=== PATIENT | male | born 1975 | race Hispanic/Latino ===

== ENCOUNTER 2019-06-29 19:49 | Emergency (ER) | payer OTHER, SELFPAY ==
[2019-06-29] MEDS ORDERED: ONDANSETRON 4 MG/2 ML VIAL ONE (20:11)
[2019-06-29] MEDS ORDERED: PANTOPRAZOLE 40 MG INJ ONE (20:11)
[2019-06-29] MEDS ORDERED: NA CHLORIDE 0.9% 1,000 ML ONE (20:13)
[2019-06-29 20:20] LABS: Basophils % 0.9 % (0-1.3); Hematocrit 26.1 % (39.6-49.0); Lymphocytes % 18.9 % (15.3-44.8); MPV 9.2 fL (7.6-11.3); RBC Red Blood Cell Count 3.23 M/uL (4.33-5.43)
[2019-06-29 20:39] LABS: ALT/SGPT 32 U/L (12-78); AST/SGOT 26 U/L (15-37); Albumin 2.9 g/dL (3.4-5.0); Alkaline Phosphatase 82 U/L (45-117); BUN Blood Urea Nitrogen 25 mg/dL (7-18); Bicarbonate 22 mmol/L (21-32); Bilirubin Direct 0.2 mg/dL (0-0.2); Bilirubin Total 0.7 mg/dL (0.2-1.0); Glucose Level 204 mg/dL (74-106); Lipase 131 U/L (73-393); Potassium 4.1 mmol/L (3.5-5.1); Protein, Total 5.8 g/dL (6.4-8.2); Sodium Level 139 mmol/L (136-145)
[2019-06-29 21:09] LABS: Blood Morphology Comment NOT SEEN (NOT SEEN); Platelet Estimate DECR; Urine White Blood Cell Casts OK
[2019-06-29] MEDS ORDERED: NA CHLORIDE 0.9% 500 ML ONE (21:29)
[2019-06-29] MEDS ORDERED: OCTREOTIDE ACETATE 100 MCG/ML ONE (21:32)
--- NOTE | 2019-06-29 21:54 | EDPHYS ---
Physician Documentation [facility] Name: Isma Marion Age: 43 yrs Sex: Male : 1975 Arrival Date: 06/29/2019 Time: 19:58 Bed 3 Private MD: ED Physician Stanley Pino HPI: 06/29 23:09 This 43 yrs old Male presents to ER via EMS with complaints of Vomiting. tw4 23:09 The patient presents to the emergency department with nausea, vomiting, described as tw4 bright red blood. Onset: The symptoms/episode began/occurred today. Possible causes: antibiotics. The symptoms are aggravated by nothing. The symptoms are alleviated by nothing. Associated signs and symptoms: Pertinent positives: syncope. Severity of symptoms: At their worst the symptoms were moderate in the emergency department the symptoms are unchanged. The patient has not experienced similar symptoms in the past. Historical: - Allergies: 20:05 No Known Allergies; ea - Home Meds: 20:05 Metformin Oral [Active]; ea - PMHx: 20:05 Diabetes - NIDDM; ea - PSHx: 20:05 None; ea - Immunization history:: Adult Immunizations up to date. - Social history:: Smoking status: Patient/guardian denies using tobacco. - Ebola Screening: : No symptoms or risks identified at this time. ROS: 23:09 Constitutional: Negative for fever, chills, and weight loss, Eyes: Negative for injury, tw4 pain, redness, and discharge, Cardiovascular: Negative for chest pain, palpitations, and edema, Respiratory: Negative for shortness of breath, cough, wheezing, and pleuritic chest pain, Back: Negative for injury and pain, MS/Extremity: Negative for injury and deformity. 23:09 Abdomen/GI: Positive for nausea and vomiting, nausea, vomiting, and diarrhea, nausea, vomiting, hematemesis, black/tarry stool, Negative for abdominal pain, constipation, abdominal cramps, abdominal distension. 23:09 Neuro: Positive for syncope, Negative for altered mental status, dizziness, gait disturbance, headache, hearing loss, loss of consciousness, numbness, seizure activity, speech changes. Exam: 23:09 Constitutional: This is a well developed, well nourished patient who is awake, alert, tw4 and in no acute distress. Head/Face: Normocephalic, atraumatic. Chest/axilla: Normal chest wall appearance and motion. Nontender with no deformity. No lesions are appreciated. Cardiovascular: Regular rate and rhythm with a normal S1 and S2. No gallops, murmurs, or rubs. Normal PMI, no JVD. No pulse deficits. Respiratory: Lungs have equal breath sounds bilaterally, clear to auscultation and percussion. No rales, rhonchi or wheezes noted. No increased work of breathing, no retractions or nasal flaring. Abdomen/GI: Soft, non-tender, with normal bowel sounds. No distension or tympany. No guarding or rebound. No evidence of tenderness throughout. Back: No spinal tenderness. No costovertebral tenderness. Full range of motion. MS/ Extremity: Pulses equal, no cyanosis. Neurovascular intact. Full, normal range of motion. Neuro: Awake and alert, GCS 15, oriented to person, place, time, and situation. Cranial nerves II-XII grossly intact. Motor strength 5/5 in all extremities. Sensory grossly intact. Cerebellar exam normal. Normal gait. Vital Signs: 20:05 BP 127 / 77; Pulse 101; Resp 18; Temp 98.8; Pulse Ox 100% on R/A; Weight 92.99 kg; ea Height 5 ft. 6 in. (167.64 cm); Pain 0/10; 21:20 BP 112 / 71; Pulse 96; Resp 18; Temp 98.2; Pulse Ox 98% on R/A; ea 22:38 BP 101 / 71; Pulse 95; Resp 18; Pulse Ox 93% on R/A; ea 22:41 Temp 98.7; ea 23:00 BP 98 / 66; Pulse 92; Resp 18; Temp 98.2(TE); Pulse Ox 95% ; ea 20:05 Body Mass Index 33.09 (92.99 kg, 167.64 cm) ea MDM: 20:00 Patient medically screened. tw4 23:09 Differential diagnosis: Nonspecific abd pain, gastritis, cholecystitis, pancreatitis, tw4 appendicitis, diverticulitis, viral gastroenteritis. Data reviewed: vital signs, nurses notes, lab test result(s), CBC, white blood cell count, hemoglobin, hematocrit, platelets, electrolytes, sodium, potassium, chloride, serum bicarbonate, BUN, creatinine, serum glucose, hepatic panel. Data interpreted: Pulse oximetry: Interpretation: normal. Counseling: I had a detailed discussion with the patient and/or guardian regarding: the historical points, exam findings, and any diagnostic results supporting the discharge/admit diagnosis, lab results. Medication response: Zofran relieved the patient's nausea. Response to treatment: and as a result, I will admit patient. ED course: Will transfer for [facility] no GI director information. . 06/29 20:02 Order name: Basic Metabolic Panel; Complete Time: 21:16 [facility] 06/29 21:17 Interpretation: Normal except: GLUC 204; BUN 25. [facility] 06/29 20:02 Order name: CBC with Diff; Complete Time: 21:16 [facility] 06/29 21:17 Interpretation: Normal except: RBC 3.23; HGB 8.3; HCT 26.1; MCV 81.0; MCH 25.8; RDW tw4 19.2; MCHC 31.9; PLT 63. 06/29 20:02 Order name: Creatinine for Radiology; Complete Time: 21:16 [facility] 06/29 21:17 Interpretation: Within normal limits: CRE 0.70. [facility] 06/29 20:02 Order name: Hepatic Function; Complete Time: 21:16 [facility] 06/29 21:17 Interpretation: Normal except: TP 5.8; ALB 2.9; A/G 1.0. [facility] 06/29 20:02 Order name: Lipase; Complete Time: 21:16 [facility] 06/29 21:17 Interpretation: Within normal limits: LIP 131. [facility] 06/29 20:47 Order name: Alcohol Level; Complete Time: 21:38 [facility] 06/29 20:02 Order name: IV Saline Lock; Complete Time: 20:22 [facility] 06/29 20:02 Order name: Labs collected and sent; Complete Time: 20:22 [facility] 06/29 21:11 Order name: CBC Smear Scan EDMS Administered Medications: 20:18 Drug: Zofran 4 mg Route: IVP; Site: left antecubital; ea 21:52 Follow up: Response: No adverse reaction ea 20:21 Drug: NS 0.9% 1000 ml Route: IV; Rate: 1 bolus; Site: left antecubital; ea 21:53 Follow up: Response: No adverse reaction; IV Status: Completed infusion; IV Intake: ea 1000ml 20:21 Drug: ProTONIX 40 mg Route: IVP; Site: left antecubital; ea 21:53 Follow up: Response: No adverse reaction ea 21:39 Drug: Octreotide Infusion (50 mcg/hr) - (Octreotide 500 mcg, NS 0.9% 500 ml) Route: IV; ea Rate: 50 ml/hr; Site: left antecubital; 23:13 Follow up: IV Status: Infusion continued upon transfer ea 22:01 Drug: Rocephin - (cefTRIAXone) 1 grams Route: IVPB; Infused Over: 30 mins; Site: left ea antecubital; 22:39 Follow up: Response: No adverse reaction; IV Status: Completed infusion ea Disposition: 06/29/19 21:[address] [facility]. Diagnosis are Encounter for screening for lower gastrointestinal disorder, Gastrointestinal hemorrhage, unspecified, Syncope and collapse. - Reason for transfer: Higher level of care. - Accepting physician is Dr Black. - Condition is Stable. - Problem is new. - Symptoms have improved. Signatures: Dispatcher [employer] Eva Hernandez RN RN Stanley Thomas MD MD tw4 Corrections: (The following items were deleted from the chart) 23:25 21:53 06/29/2019 21:[address] [facility]. Diagnosis is ea Encounter for screening for lower gastrointestinal disorder; Gastrointestinal hemorrhage, unspecified; Syncope and collapse. Reason for transfer: Higher level of care. Accepting physician is Dr Black. Condition is Stable. Problem is new. Symptoms have improved. tw4
--- NOTE | 2019-06-29 21:54 | ER ---
Nurse's Notes [facility] Name: Isma Marion Age: 43 yrs Sex: Male : 1975 Arrival Date: 06/29/2019 Time: 19:58 Bed 3 Private MD: Diagnosis: Encounter for screening for lower gastrointestinal disorder;Gastrointestinal hemorrhage, unspecified;Syncope and collapse Presentation: 06/29 20:00 Presenting complaint: EMS states: Reports he felt nauseous and went to restroom to ea throw up, pt reports he does not remember anything after that. EMS reports upon arrival pt was awake and O x 4, there was bright red emesis noted in the bathroom, and pt reported black tarry stools earlier today. Ortho BP done by EMS, reported pt had syncopal episode when he stood up, 18 G to LAC, 300cc NS given per EMS. Transition of care: patient was not received from another setting of care. Onset of symptoms was June 29, 2019. Risk Assessment: Do you want to hurt yourself or someone else? Patient reports no desire to harm self or others. Initial Sepsis Screen: Does the patient meet any 2 criteria? HR > 90 bpm. Does the patient have a suspected source of infection? No. Patient's initial sepsis screen is negative. Care prior to arrival: IV initiated. 20 GA, in the left antecubital area, 300 cc of NS. 20:00 Method Of Arrival: EMS: [facility] ea 20:00 Acuity: MEGHANN 3 ea Triage Assessment: 20:06 General: Appears in no apparent distress. Behavior is calm, cooperative, appropriate ea for age. Pain: Denies pain. Neuro: Level of Consciousness is awake, alert, obeys commands, Oriented to person, place, time, situation. Cardiovascular: Patient's skin is warm and dry. Respiratory: Airway is patent Respiratory effort is even, unlabored, Respiratory pattern is regular, symmetrical. GI: Reports bright red vomit and tarry stools. Derm: Skin is pink, warm \T\ dry. Historical: - Allergies: 20:05 No Known Allergies; ea - Home Meds: 20:05 Metformin Oral [Active]; ea - PMHx: 20:05 Diabetes - NIDDM; ea - PSHx: 20:05 None; ea - Immunization history:: Adult Immunizations up to date. - Social history:: Smoking status: Patient/guardian denies using tobacco. - Ebola Screening: : No symptoms or risks identified at this time. Screenin:05 Abuse screen: Denies threats or abuse. Nutritional screening: No deficits noted. ea Tuberculosis screening: No symptoms or risk factors identified. Fall Risk IV access (20 points). Assessment: 20:07 Reassessment: see triage assessment. ea 21:28 Reassessment: Patient and/or family updated on plan of care and expected duration. Pain ea level reassessed. Patient is alert, oriented x 3, equal unlabored respirations, skin warm/dry/pink. Provider at bedside updating pt on need for transfer. 22:18 Reassessment: Patient and/or family updated on plan of care and expected duration. Pain ea level reassessed. Patient is alert, oriented x 3, equal unlabored respirations, skin warm/dry/pink. Attempted to call report, call center reported there would be a room change and would call back with nurse for report. 22:30 Reassessment: Report called to Nura ESCOBEDO at [facility]. Pt updated on plan ea of care, awaiting on EMS for transfer. 23:19 Reassessment: Patient and/or family updated on plan of care and expected duration. Pain ea level reassessed. Patient is alert, oriented x 3, equal unlabored respirations, skin warm/dry/pink. Pt transferred to [facility] pt taken via stretcher per EMS, tolerating well. IV sites intact, patent with IV medication infusing. Pt tolerating well. Vital Signs: 20:05 BP 127 / 77; Pulse 101; Resp 18; Temp 98.8; Pulse Ox 100% on R/A; Weight 92.99 kg; ea Height 5 ft. 6 in. (167.64 cm); Pain 0/10; 21:20 BP 112 / 71; Pulse 96; Resp 18; Temp 98.2; Pulse Ox 98% on R/A; ea 22:38 BP 101 / 71; Pulse 95; Resp 18; Pulse Ox 93% on R/A; ea 22:41 Temp 98.7; ea 23:00 BP 98 / 66; Pulse 92; Resp 18; Temp 98.2(TE); Pulse Ox 95% ; ea 20:05 Body Mass Index 33.09 (92.99 kg, 167.64 cm) ea ED Course: 19:58 Patient arrived in ED. ea 20:00 Stanley Pino MD is Attending Physician. tw4 20:04 Triage completed. ea 20:04 Arm band placed on right wrist. Patient placed in an exam room, on a stretcher, on ea pulse oximetry. 20:05 Patient has correct armband on for positive identification. Bed in low position. Call ea light in reach. Side rails up X2. 20:08 Eva Avendano RN is Primary Nurse. ea 21:45 No provider procedures requiring assistance completed. Patient transferred, IV remains ea in place. Administered Medications: 20:18 Drug: Zofran 4 mg Route: IVP; Site: left antecubital; ea 21:52 Follow up: Response: No adverse reaction ea 20:21 Drug: NS 0.9% 1000 ml Route: IV; Rate: 1 bolus; Site: left antecubital; ea 21:53 Follow up: Response: No adverse reaction; IV Status: Completed infusion; IV Intake: ea 1000ml 20:21 Drug: ProTONIX 40 mg Route: IVP; Site: left antecubital; ea 21:53 Follow up: Response: No adverse reaction ea 21:39 Drug: Octreotide Infusion (50 mcg/hr) - (Octreotide 500 mcg, NS 0.9% 500 ml) Route: IV; ea Rate: 50 ml/hr; Site: left antecubital; 23:13 Follow up: IV Status: Infusion continued upon transfer ea 22:01 Drug: Rocephin - (cefTRIAXone) 1 grams Route: IVPB; Infused Over: 30 mins; Site: left ea antecubital; 22:39 Follow up: Response: No adverse reaction; IV Status: Completed infusion ea Intake: 21:53 IV: 1000ml; Total: 1000ml. ea Outcome: 21:45 Instructed on the need for transfer, Demonstrated understanding of instructions. ea 21:53 ER care complete, transfer ordered by . tw4 23:13 Transferred by ground EMS to [facility], Transfer form completed. ea 23:13 Condition: stable 23:25 Patient left the ED. ea Signatures: Eva Avendano RN RN ea Wadley, Terrence, MD MD [facility]
[2019-06-29] MEDS ORDERED: CEFTRIAXONE/SWI 1gm 1 GM/10 ML SYR ONE (21:55)
[2019-06-29 23:47] VITALS: BP 98/66; TEMP 98.2; O2SAT 95
--- NOTE | 2019-06-30 08:47 | EKG ---
Test Date: 2019-06-29 Test Time: 19:57:46 Grip Boss: CHIQUITA MEASUREMENT RESULTS: Intervals: Rate: 92 NM: 130 QRSD: 82 QT: 360 QTc: 445 [place]: P: 64 NM: 130 QRS: 19 T: 24 INTERPRETIVE STATEMENTS: Normal sinus rhythm Normal ECG Compared to ECG 11/01/2014 15:26:04 No significant changes Electronically Signed On 06-30-19 08:45:26 [employer] by Hector Gray
== END 2019-06-29 23:25 | disposition short-term general hospital (02) ==
LOC: ER 19:49
DX: K92.2 Gastrointestinal hemorrhage, unspecified (principal); R55 Syncope and collapse; Z13.811 Encounter for screening for lower gastrointestinal disorder; E11.9 Type 2 diabetes mellitus without complications
CPT/HCPCS: 36415; 80048; 80076; 80320; 83690; 85025; 93005; 96361; 96365; 96368; 96375; 99285; C9113; J0696; J2354; J2405; J7030; J7040

== ENCOUNTER 2020-09-26 16:26 | Inpatient (IN) | payer SELFPAY ==
[2020-09-26] MEDS ORDERED: NA CHLORIDE 0.9% 1,000 ML ONE (21:33)
[2020-09-26] MEDS ORDERED: PANTOPRAZOLE 40 MG INJ ONE (21:33)
[2020-09-26] MEDS ORDERED: ONDANSETRON 4 MG/2 ML VIAL ONE (21:33)
[2020-09-26] MEDS ORDERED: NA CHLORIDE 0.9% 500 ML ONE (21:33)
[2020-09-26] MEDS ORDERED: OCTREOTIDE ACETATE 100 MCG/ML ONE (21:35)
[2020-09-26] MEDS ORDERED: CEFTRIAXONE/SWI 1gm 1 GM/10 ML SYR ONE (21:35)
[2020-09-26] MEDS ORDERED: NA CHLORIDE 0.9% 250 ML ONE (21:39)
[2020-09-26 21:43] LABS: Protime INR 1.25
[2020-09-26 21:48] LABS: Absolute Lymphocytes (CBC) 1.2 K/uL (0.7-4.9); Basophils % 0.3 % (0-1.3); Hematocrit 37.9 % (39.6-49.0); Lymphocytes % 13.5 % (15.3-44.8); MPV 9.7 fL (7.6-11.3); RBC Red Blood Cell Count 4.26 M/uL (4.33-5.43)
[2020-09-26 21:56] LABS: ALT/SGPT 36 U/L (12-78); AST/SGOT 23 U/L (15-37); Albumin 3.4 g/dL (3.4-5.0); Alkaline Phosphatase 99 U/L (45-117); BUN Blood Urea Nitrogen 32 mg/dL (7-18); Bicarbonate 24 mmol/L (21-32); Bilirubin Direct 0.3 mg/dL (0-0.2); Bilirubin Total 1.2 mg/dL (0.2-1.0); Glucose Level 258 mg/dL (74-106); Lipase 70 U/L (73-393); Potassium 4.2 mmol/L (3.5-5.1); Protein, Total 7.3 g/dL (6.4-8.2); Sodium Level 138 mmol/L (136-145)
[2020-09-26] MEDS ORDERED: OCTREOTIDE ACETATE 500 MCG/ML ONE (22:07)
[2020-09-26] MEDS ORDERED: ONDANSETRON 4 MG/2 ML VIAL IV PRN (22:56)
[2020-09-26] MEDS: NA CHLORIDE 0.9% 1,000 ML IV SCH (23:00)
[2020-09-26] MEDS ORDERED: OCTREOTIDE 500 MCG in NA CHLORIDE 0.9% 500 ML IV SCH (23:00)
[2020-09-26] MEDS ORDERED: PANTOPRAZOLE INJ 80 MG in NA CHLORIDE 0.9% 250 ML IV SCH (23:00)
[2020-09-26] MEDS ORDERED: SODIUM CHLORIDE 0.9% 10ML INJ IV PRN (23:02)
--- NOTE | 2020-09-26 23:02 | P.HP ---
Certification for Inpatient Patient will require the following post-hospital care: None Practitioner: I am a practitioner with admitting privileges, knowledge of patient current condition, hospital course, and medical plan of care. Services: Services provided to patient in accordance with Admission requirements found in Title 42 Section 412.3 of the Code of Federal Regulations Patient History Date of Service: 09/27/20 Reason for admission: GI bleed. History of Present Illness: 44 y o male pt with hx of Diabetes type 2 and hx of liver cirrhosis and prior GI bleed admitted for work up if GI bleed. he had c/o vomiting blood and passing black stool x1. he denied any episode of diarrhea, fever, chills, rigor and no overt abd pain. his labs were pertinent for normal hb level and renal function. he was deem,ed to have possible GI bleed based on his hx and concerns for PUD/esophageal varices was entertained. he was started on PPI and IV fluid and he was admitted for inpt after discussing with web press operator helper offset. Allergies No Known Drug Allergies Allergy (Unknown, Verified 07/29/14 14:19) Unknown Home Medications: Alogliptin Abdias/Metformin HCl [Kazano 12.5-1,000 mg Tablet] 1 each PO BID 02/07/15 Amoxicillin/Potassium Clav [Augmentin 875-125 Tablet] 1 each PO BID #20 tablet 02/12/15 Codeine/APAP [Tylenol W/Codeine #3 tab] 1 tab PO Q8H PRN #20 tab 02/12/15 - Past Medical/Surgical History Diabetic: Yes -: DM -: Cellulitis - Social History Alcohol use: Yes CD- Drugs: No Caffeine use: Yes Review of Systems General: Weakness Gastrointestinal: Nausea, Vomiting, Abdominal Pain (mild.), Melena, Hematochezia Physical Examination - Physical Exam General: Alert, Oriented x3 HEENT: Atraumatic, Normocephalic Respiratory: Clear to auscultation bilaterally Cardiovascular: No edema, Regular rate/rhythm, Normal S1 S2 Gastrointestinal: Tenderness (mildly in epigastrium.) Neurological: Normal speech, Normal strength at 5/5 x4 extr, Cranial nerves 3-12 intact - Studies Laboratory Data (last 24 hrs) 09/26/20 21:10: PT 14.4 H, INR 1.25 09/26/20 21:10: WBC 9.10, Hgb 12.9 L, Hct 37.9 L, Plt Count 104 L 09/26/20 21:10: Sodium 138, Potassium 4.2, BUN 32 H, Creatinine 0.62, Glucose 258 H, Total Bilirubin 1.2 H, AST 23, ALT 36, Alkaline Phosphatase 99, Lipase 70 L Assessment and Plan - Plan 1.GI bleed-suspected based on hx. he does have a hx of esophageal varices. we have started PPI therapy. we will monitor h&h and vitals. we will have GI evaluation in am for possible endoscopy. 2.Diabetes type 2-was on metformin and alogliptin as outpt. we will continue routine monitoring of blood glucose per protocol.SSI will be started as needed. Discharge Plan: Home - Advance Directives Does patient have a Living Will: No Does patient have a Durable POA for Healthcare: No
--- NOTE | 2020-09-26 23:14 | ER ---
Nurse's Notes [facility] Name: Isma Marion Age: 44 yrs Sex: Male : 1975 Arrival Date: 09/26/2020 Time: 16:29 Bed 8 Private MD: Diagnosis: Gastrointestinal hemorrhage, unspecified Presentation: 09/26 16:36 Chief complaint: Patient states: black stools, started vomiting blood today, and sv generalized weakness. Pt took some Pepto this morning. Coronavirus screen: Client denies travel out of the [place] in the last 14 days. At this time, the client does not indicate any symptoms associated with coronavirus-19. Ebola Screen: No symptoms or risks identified at this time. Risk Assessment: Do you want to hurt yourself or someone else? Patient reports no desire to harm self or others. Onset of symptoms was September 26, 2020. 16:36 Method Of Arrival: Ambulatory sv 16:36 Acuity: MEGHANN 2 sv 16:38 Initial Sepsis Screen: Does the patient meet any 2 criteria? HR > 90 bpm. No. Patient's sv initial sepsis screen is negative. Does the patient have a suspected source of infection? No. Patient's initial sepsis screen is negative. Triage Assessment: 16:39 General: Appears in no apparent distress. uncomfortable, Behavior is calm, cooperative, sv appropriate for age. Pain: Complains of pain in epigastric area. Neuro: Level of Consciousness is awake, alert, obeys commands, Oriented to person, place, time, situation, Moves all extremities. Full function Gait is steady. Respiratory: Respiratory effort is even, unlabored. Historical: - Allergies: 16:37 No Known Drug Allergies; sv - PMHx: 16:37 Diabetes - NIDDM; sv - PSHx: 16:37 None; sv - Immunization history:: Adult Immunizations up to date. - Social history:: Smoking status: Patient denies any tobacco usage or history of. Patient uses alcohol, occasionally. Patient/guardian denies using alcohol, street drugs, The patient lives with family. - Family history:: not pertinent. Screenin:18 Abuse screen: Denies threats or abuse. Denies injuries from another. Nutritional rv screening: No deficits noted. Tuberculosis screening: No symptoms or risk factors identified. Fall Risk None identified. Vital Signs: 16:38 BP 108 / 85; Pulse 112; Resp 20; Temp 98.4; Pulse Ox 100% ; Weight 90.72 kg; Height 5 sv ft. 6 in. (167.64 cm); Pain 5/10; 22:00 BP 118 / 72; Pulse 112; Resp 18; Pulse Ox 100% on R/A; rv 23:46 BP 93 / 56; Pulse 111; Resp 18; Temp 98; Pulse Ox 99% ; rv 16:38 Body Mass Index 32.28 (90.72 kg, 167.64 cm) sv ED Course: 16:29 Patient arrived in ED. mr 16:36 Arm band placed on. sv 16:37 Triage completed. sv 20:55 Patient taken to an exam room, ambulatory, steady gait. sg 20:55 Bryson Bailon, GREGG is Primary Nurse. rv 20:56 Garrett Durbin MD is Attending Physician. ma2 21:10 Inserted saline lock: 18 gauge in left forearm, using aseptic technique. Blood rv collected. 21:15 Inserted saline lock: 20 gauge in left hand, using aseptic technique. rv 21:15 Initial lab(s) drawn, by me, sent to lab. rv 21:18 Patient has correct armband on for positive identification. monitor worker on. Pulse rv ox on. NIBP on. 21:28 XRAY Abdomen 1 View (KUB) In Process Unspecified. EDMS 22:53 Dakota Scherer DO is Hospitalizing Provider. ma2 23:41 No provider procedures requiring assistance completed. IV is patent, with fluids rv infusing freely, Patient admitted, IV remains in place. Administered Medications: 21:24 Drug: NS 0.9% 1000 ml Route: IV; Rate: 1000 ml; Site: left forearm; wh 23:44 Follow up: IV Status: Completed infusion; IV Intake: 1000ml rv 21:26 Drug: Zofran (Ondansetron) 4 mg Route: IVP; Site: left forearm; wh 23:44 Follow up: Response: No adverse reaction rv 21:28 Drug: Rocephin 1 grams Route: IV; Rate: calculated rate; Site: left forearm; wh 23:43 Follow up: Response: No adverse reaction; IV Status: Completed infusion rv 21:30 Drug: Pantoprazole 80 mg Route: IVP; Site: left forearm; wh 23:43 Follow up: Response: No adverse reaction rv 21:32 Drug: Pantoprazole 8 mg/hr Route: IV; Rate: 25 ml/hr; Site: left forearm; 23:43 Follow up: IV Status: Infusion continued upon admission rv 22:06 Drug: Octreotide Infusion (50 mcg/hr) - (Octreotide 500 mcg, NS 0.9% 500 ml) Route: IV; rv Rate: 50 ml/hr; Site: left hand; 23:43 Follow up: IV Status: Infusion continued upon admission rv Point of Care Testing: Blood Glucose: 16:43 Blood Glucose: 213 mg/dL; sv Ranges: Intake: 23:44 IV: 1000ml; Total: 1000ml. rv Outcome: 22:53 Decision to Hospitalize by Provider. maMane 23:41 Admitted to Tele accompanied by tech, via wheelchair, room 405, with chart, Report rv called to [facility] 23:41 Condition: good 23:41 Instructed on the need for admit. 02 00:06 Patient left the ED. rv Signatures: Dispatcher [employer] Lottie Lutz, RN GREGG Quentin Kan RN GREGG Sally Whitman mr Kalie, GREGG Eason RN Garrett Durbin MD MD ma2 Vicente, Ronaldo RN RN rv Corrections: (The following items were deleted from the chart) 02 16:39 16:36 Chief complaint: Patient states: black stools, started vomiting blood today, and sv generalized weakness sv 16:40 16:36 Acuity: MEGHANN 3 sv sv
--- NOTE | 2020-09-26 23:14 | EDPHYS ---
Physician Documentation [facility] Name: Isma Marion Age: 44 yrs Sex: Male : 1975 Arrival Date: 09/26/2020 Time: 16:29 Bed 8 Private MD: ED Physician Garrett Durbin HPI: 09/26 21:36 This 44 yrs old Male presents to ER via Ambulatory with complaints of vomiting ma2 up Blood, melena. 21:36 Onset: The symptoms/episode began/occurred gradually, 2 day(s) ago. Associated signs ma2 and symptoms: Pertinent negatives: anorexia, fever, headache, hematuria, shortness of breath. Severity of pain: At its worst the pain was mild in the emergency department the pain is unchanged. The patient has experienced similar episodes in the past. Historical: - Allergies: 16:37 No Known Drug Allergies; sv - PMHx: 16:37 Diabetes - NIDDM; sv - PSHx: 16:37 None; sv - Immunization history:: Adult Immunizations up to date. - Social history:: Smoking status: Patient denies any tobacco usage or history of. Patient uses alcohol, occasionally. Patient/guardian denies using alcohol, street drugs, The patient lives with family. - Family history:: not pertinent. ROS: 21:36 Constitutional: Negative for fever, chills, and weight loss. ma2 21:36 All other systems are negative. Exam: 21:36 Constitutional: This is a well developed, well nourished patient who is awake, alert, ma2 and in no acute distress. Head/Face: Normocephalic, atraumatic. Eyes: Pupils equal round and reactive to light, extra-ocular motions intact. Lids and lashes normal. Conjunctiva and sclera are non-icteric and not injected. Cornea within normal limits. Periorbital areas with no swelling, redness, or edema. ENT: Nares patent. No nasal discharge, no septal abnormalities noted. Tympanic membranes are normal and external auditory canals are clear. Oropharynx with no redness, swelling, or masses, exudates, or evidence of obstruction, uvula midline. Mucous membranes moist. Neck: Trachea midline, no thyromegaly or masses palpated, and no cervical lymphadenopathy. Supple, full range of motion without nuchal rigidity, or vertebral point tenderness. No Meningismus. Chest/axilla: Normal chest wall appearance and motion. Nontender with no deformity. No lesions are appreciated. Cardiovascular: Regular rate and rhythm with a normal S1 and S2. No gallops, murmurs, or rubs. Normal PMI, no JVD. No pulse deficits. Respiratory: Lungs have equal breath sounds bilaterally, clear to auscultation and percussion. No rales, rhonchi or wheezes noted. No increased work of breathing, no retractions or nasal flaring. Abdomen/GI: Soft, non-tender, with normal bowel sounds. No distension or tympany. No guarding or rebound. No evidence of tenderness throughout. MS/ Extremity: Pulses equal, no cyanosis. Neurovascular intact. Full, normal range of motion. Neuro: Awake and alert, GCS 15, oriented to person, place, time, and situation. Cranial nerves II-XII grossly intact. Motor strength 5/5 in all extremities. Sensory grossly intact. Cerebellar exam normal. Normal gait. Vital Signs: 16:38 BP 108 / 85; Pulse 112; Resp 20; Temp 98.4; Pulse Ox 100% ; Weight 90.72 kg; Height 5 sv ft. 6 in. (167.64 cm); Pain 5/10; 22:00 BP 118 / 72; Pulse 112; Resp 18; Pulse Ox 100% on R/A; rv 23:46 BP 93 / 56; Pulse 111; Resp 18; Temp 98; Pulse Ox 99% ; rv 16:38 Body Mass Index 32.28 (90.72 kg, 167.64 cm) sv MDM: 20:56 Patient medically screened. ma2 21:36 Differential diagnosis: diverticulitis, gastritis, gastroesophageal reflux disease, GI ma2 Bleed, Hepatitis. 22:51 Data reviewed: vital signs, nurses notes. Counseling: I had a detailed discussion with ma2 the patient and/or guardian regarding: the historical points, exam findings, and any diagnostic results supporting the discharge/admit diagnosis, the presence of at least one elevated blood pressure reading (>120/80) during this emergency department visit, the need for further work-up and treatment in the hospital. Response to treatment: the patient's symptoms have markedly improved after treatment. ED course: discussed with gi dr. garcia teamLeilani, and she states dr. albert will come see him outsewer.. 09/26 16:55 Order name: Glucose, Ancillary Testing; Complete Time: 21:46 EDMS 09/26 20:59 Order name: BMP [facility] 09/26 20:59 Order name: CBC with Diff; Complete Time: 22:16 [facility] 09/26 20:59 Order name: Hepatic Function; Complete Time: 22:16 [facility] 09/26 20:59 Order name: Lipase; Complete Time: 22:16 [facility] 09/26 20:59 Order name: PT-INR; Complete Time: 22:16 [facility] 09/26 20:59 Order name: XRAY Abdomen 1 View (KUB) [facility] 09/26 20:59 Order name: Type And Screen [facility] 09/26 21:00 Order name: Basic Metabolic Panel; Complete Time: 22:16 EDMS 09/26 21:36 Order name: COVID-19 : Document "Date of Symptom Onset" if Symptomatic. [facility] 09/26 22:39 Order name: Urine Dipstick--Ancillary (enter results) [facility] 09/26 23:31 Order name: SARS-COV-2 RT PCR [facility] 09/27 00:01 Order name: Urine Dipstick-Ancillary [facility] 09/26 20:59 Order name: IV Saline Lock; Complete Time: 21:19 [facility] 09/26 20:59 Order name: Labs collected and sent; Complete Time: 21:19 [facility] 09/26 20:59 Order name: NPO; Complete Time: 21:19 [facility] 09/26 20:59 Order name: Urine Dipstick-Ancillary (obtain specimen); Complete Time: 22:34 [facility] 09/26 22:59 Order name: NPO EDDC Administered Medications: 21:24 Drug: NS 0.9% 1000 ml Route: IV; Rate: 1000 ml; Site: left forearm; wh 23:44 Follow up: IV Status: Completed infusion; IV Intake: 1000ml rv 21:26 Drug: Zofran (Ondansetron) 4 mg Route: IVP; Site: left forearm; wh 23:44 Follow up: Response: No adverse reaction rv 21:28 Drug: Rocephin 1 grams Route: IV; Rate: calculated rate; Site: left forearm; wh 23:43 Follow up: Response: No adverse reaction; IV Status: Completed infusion rv 21:30 Drug: Pantoprazole 80 mg Route: IVP; Site: left forearm; 23:43 Follow up: Response: No adverse reaction rv 21:32 Drug: Pantoprazole 8 mg/hr Route: IV; Rate: 25 ml/hr; Site: left forearm; 23:43 Follow up: IV Status: Infusion continued upon admission rv 22:06 Drug: Octreotide Infusion (50 mcg/hr) - (Octreotide 500 mcg, NS 0.9% 500 ml) Route: IV; rv Rate: 50 ml/hr; Site: left hand; 23:43 Follow up: IV Status: Infusion continued upon admission rv Point of Care Testing: Blood Glucose: 16:43 Blood Glucose: 213 mg/dL; sv Ranges: Critical Glucose Levels:Adult <50 mg/dl or >400 mg/dl <40 mg/dl or >180 mg/dl Disposition: 09/26/20 22:53 Hospitalization ordered by Dakota Scherer for Inpatient Admission. Preliminary diagnosis is Gastrointestinal hemorrhage, unspecified. - Bed requested for Telemetry/MedSurg (Inpatient). - Status is Inpatient Admission. rv - Condition is Stable. - Problem is new. - Symptoms are unchanged. Signatures: Dispatcher [employer] EDDC Lottie Villafuerte RN RN Betty Murillo RN RN Jenaro Jade RN RN Garrett Durbin MD MD [facility] Bryson Bailon RN RN rv Corrections: (The following items were deleted from the chart) 22:10 21:37 CORONAVIRUS ordered. EDDC EDDC 23:38 22:53 Hospitalization Ordered by Dakota Scherer DO for Inpatient Admission. Preliminary cg diagnosis is Gastrointestinal hemorrhage, unspecified. Bed requested for Telemetry/MedSurg (Inpatient). Status is Inpatient Admission. Condition is Stable. Problem is new. Symptoms are unchanged. [facility] 09/27 00:06 08 23:38 09/26/2020 22:53 Hospitalization Ordered by Dakota Scherer DO for Inpatient rv Admission. Preliminary diagnosis is Gastrointestinal hemorrhage, unspecified. Bed requested for Telemetry/MedSurg (Inpatient). Status is Inpatient Admission. Condition is Stable. Problem is new. Symptoms are unchanged.
[2020-09-27] LABS: Urine Blood NEGATIVE (NEG); Urine Glucose 2+ (NEG); Urine Protein NEGATIVE (NEG); Urine Specific Gravity 1.025 (1.005-1.030); Urine pH 6.5 (5.0-7.0)
[2020-09-27] MEDS ORDERED: OCTREOTIDE ACETATE 100 MCG/ML IV SCH (01:00)
[2020-09-27 01:09] VITALS: BMI 30.2
[2020-09-27 04:00] LABS: Absolute Lymphocytes (CBC) 1.1 K/uL (0.7-4.9); Basophils % 0.3 % (0-1.3); Hematocrit 30.2 % (39.6-49.0); MPV 9.3 fL (7.6-11.3); RBC Red Blood Cell Count 3.39 M/uL (4.33-5.43)
[2020-09-27 04:36] LABS: ALT/SGPT 31 U/L (12-78); AST/SGOT 21 U/L (15-37); Alkaline Phosphatase 84 U/L (45-117); BUN Blood Urea Nitrogen 28 mg/dL (7-18); Bicarbonate 25 mmol/L (21-32); Bilirubin Total 1.1 mg/dL (0.2-1.0); Glucose Level 168 mg/dL (74-106); Protein, Total 6.3 g/dL (6.4-8.2); Sodium Level 142 mmol/L (136-145)
[2020-09-27 05:04] LABS: Blood Morphology Comment NOT SEEN (NOT SEEN); Platelet Estimate DECR; White Blood Cell Scan OK (OK)
[2020-09-27] MEDS: INSULIN -REGULAR HUMAN 50 UNIT/0.5 ML ML SQ SCH ×4 (07:30→21:00)
--- NOTE | 2020-09-27 07:37 | RAD REPORT ---
EXAM DESCRIPTION: RAD - Abdomen 1 View (KUB) - 09/26/2020 9:32 pm CLINICAL HISTORY: Abdomen pain. FINDINGS: The bowel gas pattern is unremarkable. Moderate amount of stool is present within the colon. Right upper quadrant calcifications may represent gallstones or hepatic calcifications. Another consi deration is that they are present within the right ribs. Right upper quadrant ultrasound recommended Pelvic calcifications probably phleboliths
[2020-09-27] MEDS ORDERED: INFLUENZA VACCINE (for 3y+) 0.5 ML DOSE IMVAC ONE (08:00)
[2020-09-27] MEDS: OCTREOTIDE 500 MCG in NA CHLORIDE 0.9% 500 ML IV SCH ×3 (09:00→19:48)
[2020-09-27] MEDS: NA CHLORIDE 0.9% 1,000 ML IV SCH (09:00)
[2020-09-27] MEDS: PANTOPRAZOLE INJ 80 MG in NA CHLORIDE 0.9% 250 ML IV SCH ×3 (09:00→19:48)
[2020-09-27] MEDS ORDERED: PANTOPRAZOLE 40 MG INJ IVP SCH (09:00)
--- NOTE | 2020-09-27 16:37 | P.PN ---
Subjective Date of Service: 09/27/20 Chief Complaint: GI bleed. Patient reports the hematemesis has stopped. He reports persistent melena. Patient on octreotide and Protonix drip. He denies any abdominal pain. Physical Examination - Vital Signs Temperature: 99.9 F Blood Pressure: 106/60 Pulse: 80 Respirations: 19 Pulse Ox (%): 99 - Physical Exam General: Alert, In no apparent distress, Oriented x3 HEENT: Mucous membr. moist/pink Neck: Supple Respiratory: Clear to auscultation bilaterally, Normal air movement Cardiovascular: No edema, Regular rate/rhythm, Normal S1 S2 Gastrointestinal: Normal bowel sounds, Soft and benign, Non-distended, No tenderness Musculoskeletal: No swelling, No tenderness Integumentary: No rashes, No erythema Neurological: Normal strength at 5/5 x4 extr - Studies Laboratory Data (last 24 hrs) 09/26/20 21:10: PT 14.4 H, INR 1.25 09/26/20 21:10: WBC 9.10, Hgb 12.9 L, Hct 37.9 L, Plt Count 104 L 09/26/20 21:10: Sodium 138, Potassium 4.2, BUN 32 H, Creatinine 0.62, Glucose 258 H, Total Bilirubin 1.2 H, AST 23, ALT 36, Alkaline Phosphatase 99, Lipase 70 L Assessment And Plan - Current Problems (Diagnosis) (1) GI bleed Current Visit: Yes Status: Acute (2) Liver cirrhosis Current Visit: Yes Status: Acute (3) Acute blood loss anemia Current Visit: Yes Status: Acute (4) DM type 2 (diabetes mellitus, type 2) Current Visit: Yes Status: Acute - Plan Continue octreotide drip and Protonix drip. Keep NPO. GI consult. Case discussed with Dr. Chi. IV hydration Monitor H&H and transfuse p.r.n. for hemoglobin less than 7.
[2020-09-27] MEDS ORDERED: LIDOCAINE 1% MPF 5 ML VIAL ONE (16:47)
[2020-09-27] MEDS ORDERED: propofoL 200 MG/20 ML VIAL IV ONE (16:47)
[2020-09-27] MEDS ORDERED: MIDAZOLAM HCL 2 MG/2 ML INJ ONE (17:10)
[2020-09-27] MEDS: CEFTRIAXONE/SWI 1gm 1 GM/10 ML SYR IVP SCH (18:03)
--- NOTE | 2020-09-27 18:32 | OP ---
Surgeon: Demetrio Chi MD Procedure Performed: Esophagogastroduodenoscopy. Indication For Procedure: Upper GI bleed in a patient with esophageal varices and cirrhosis. Plan For Anesthesia: Monitored anesthesia care. Complexity: High due to the patient's comorbidities as well as COVID positive, but it is considered an emergent situation. Technique: After obtaining informed consent from the patient and explaining risks and complications which include, but are not limited to bleeding, infection, perforation, and anesthesia complications, the patient was placed in left lateral position and sedation was given. From then on, the scope was advanced through the mouth and carefully guided up to the second portion of the duodenum. No active bleeding seen, but stigmata of recent bleeding was visualized and treated as detailed below. After the completion of examination, scope and equipment were withdrawn and procedure terminated in a safe manner. Findings: Esophagus: No gross lesion seen in the upper esophagus, in the mid and distal esophagus. Large esophageal varices were seen. Some of these did have red signs. Stomach: Mild patchy erythema seen in the body and antrum. In the fundus, there was evidence of gas tric varices with ulceration. This may have been the site of bleeding; however, there was no active bleeding at this time. The varices were medium in size. They were of GOV 1 type containing with eso phageal varices. Due to this, decision was taken to band the esophageal varices, specifically starti ng from the 1 that is continuation of the gastric varix. We do not have any ability to read gastric varices in this location. The duodenal bulb and second portion were normal. Subsequently, 4 bands w ere placed in the distal esophagus coming up to the midportion of the esophagus. All 4 bands were ibrahim ccessfully placed. Complications: None. Tolerance To Anesthesia: Excellent. Postoperative Diagnoses: Esophageal varices, gastric varices, probable source of bleeding, status po st banding of esophageal varices, gastritis. Plan: Continue octreotide, PPI. Start ceftriaxone. Keep n.p.o. for today. Can start clear liquids from tomorrow if no further bleeding. If there is evidence of rebleeding, the patient will need to be transferred to tertiary care center for TIPS procedure. GI will follow as needed. US/MODL Voice ID: [id number] Report ID: [id number]
--- OUTSIDE RECORDS SUMMARY | 2020-09-28 02:10 | XMS REPORT | Clinical Summary ---
:[address] [facility] Address [address] [place] [address] Care Team Providers Name Role Phone AbdiazizJuanito Unavailable Allergies No Known Allergies Medications Medication Sig Dispensed Refills Start Date End Date Status metFORMIN Take 1,000 mg 0 Active (GLUCOPHAGE) 1000 MG by mouth daily tablet with breakfast. metFORMIN Take 500 mg by 0 Activ e (GLUCOPHAGE) 500 MG mouth every tablet evening. propranolol (INDERAL) Take 1 tablet 120 tablet 3 07/03/2019 10 MG tablet (10 mg total) by mouth 2 (two) times daily. ferrous sulfate 325 Take 1 tablet 180 tablet 3 07/03/201906/19 (65 FE) MG EC tablet (325 mg total) by mouth 3 (three) times daily with meals. Active Problems Problem Noted Date GIB (gastrointestinal bleeding) 06/30/2019 Family History Medical History Relation Name Comments Diabetes Brother Diabetes Father Heart disease Father Diabetes Mother Diabetes Sister Relation Name Status Comments Brother Father Mother Sister Social History Tobacco Use Types Packs/Day Years Used Date Current Every Day Smoker 0.5 Smokeless Tobacco: Never Used Alcohol Use Drinks/Week oz/Week Comments Yes 5-6 Cans of beer 5.0 - 6.0 Last drink 06/19 0 Sex Assigned at Date Recorded Not on file Last Filed Vital Signs Not on file Plan of Treatment Health Maintenance Due Date Last Done Comments PNEUMOCOCCAL VACCINE 0-64 YRS (1 of 1 - PPSV23) 10/18/1981 LIPID PANEL 10/18/2010 INFLUENZA VACCINE (#1) 2020 Results Not on fileafter 09/27/2019 Advance Directives For more information, please contact: [phone] Code Status Date Activated Date Inactivated Comments Full Code 06/30/2019 1:47 AM 07/03/2019 7:19 PM This code status was determined by: Patient
--- OUTSIDE RECORDS SUMMARY | 2020-09-28 02:11 | XMS REPORT | Continuity of Care Document ---
:1975 Author Organization [facility] t Address [address] [place] [address] [address]. [address] [place] [address] Care Team Providers Name Role Phone WILLY Attending Clinician Unavailable ROGER AL Admitting Clinician Unavailable Problems Condition Condition Condition Status Onset Resolution Last Treating Co mments Source Name Details Category Date Date Treatment Clinician Date GIB GIB Disease Active 2018-08 St (gastroint (gastroint 08-30 [facility] - estinal estinal 00:00: Medical bleeding) bleeding) 00 Cent er Allergies, Adverse Reactions, Alerts This patient has no known allergies or adverse reactions. Family History Family Member Diagnosis Comments Start Date Stop Date Source Natural brother Diabetes [facility] Natural father Diabetes [facility] Natural father Heart disease [facility] Natural mother Diabetes [facility] Natural sister Diabetes [facility] Social History Social Habit Start Date Stop Date Quantity Comments Source Sex Assigned At [facility] Tobacco use and 2019-07-01 2019-07-01 Never used [facility] - exposure 00:00:00 00:00:00 [facility] Center Alcohol intake 2019-07-01 2019-07-01 Current drinker EDER Mike - 00:00:00 00:00:00 of alcohol [facility] (finding) Cigarettes smoked 2019-07-01 2019-07-01 EDER Mitchell - current (pack per 00:00:00 00:00:00 Medical Center day) - Reported Alcohol Comment 2019-06-30 2019-06-30 Last drink 06/[address] [facility] - 00:[facility]00 [facility]00 [facility] Center Smoking Status Start Date Stop Date Source Current every day smoker 2019-07-01 00:00:00 [facility] Medications Ordered Filled Start Stop Current Ordering Indication Dosage Frequency Signature Comments Components Source Medication Medication Date Date Medication? Clinician (SIG) Name Name Will Solis Yes Na Akins [address] [facility] ne ne 02-11 [facility]atio [facility] - Acetonide Acetonide 00:00: n to Mem oria 00 affected l [facility] ent [facility] Mupirocin Mupirocin 2020- No Na Akins [address] [facility] 02-11 [facility]atio [facility] - 00:00: 00:00 n to Memoria 00 :00 affected l [facility] metFORMIN 2018-08 Yes 1000mg Take 1,[address] [facility] [address] (GLUCOPHAGE 1-15 mg by [facility]ukes - ) 1000 MG 17:19: mouth Medical tablet 27 daily with Center breakfast. metFORMIN 2018-08 Yes 500mg QD Take [address] (GLUCOPHAGE 1-15 mg by [facility]ukes - ) 500 MG 17:19: mouth Medical tablet 27 every Center evening. propranolol 2018-08- No 10mg Q.5D Take [address] (INDERAL) -15 -14 tablet (10 En es - 10 MG 00:00: 23:59 mg total) Medica l tablet 00 :00 by mouth 2 Center (two) times daily. ferrous 2018-08 No 325mg Take [address] sulfate 325 -15 -14 tablet [facility] - (65 FE) MG 00:00: 23:59 (325 mg Med ical EC tablet 00 :00 total) by Cente r mouth 3 (three) times daily with meals. Protonix Protonix Yes Na Akins [address] [facility] - [facility] Propranolol Propranolol Yes Na Akins [address] HCl HCl on an [facility] - empty Memoria stomach l [facility] ent [facility] Glimepiride Glimepiride Yes Na Akins [address] [facility] One Touch One Touch Yes Na Akins one strip [facility] test strips test strips [facility] ent [facility] One Touch One Touch Yes Na Akins one strip [facility] Ver[facility] - [facility] Metformin Metformin Yes Na Akins [address] HCl HCl with a [facility]ukes - meal [facility] Procedures This patient has no known procedures. Plan of Care Planned Activity Planned Date Details Comments Source Future Scheduled 2020-04-19 INFLUENZA VACCINE (#1) [facility] Test 00:00:00 [code = INFLUENZA Medical Ce nter VACCINE (#1)] Future Scheduled 2010-10-[address] [facility] - Test 00:00:00 (procedure) [code = Medical Center 91522088] Future Scheduled 1981-10-[address] [facility] - Test 00:00:00 0-64 YRS (1 of 1 - Medical C enter PPSV23) [code = PNEUMOCOCCAL VACCINE 0-64 YRS (1 of 1 - PPSV23)] Encounters Start End Encounter Admission Attending Care Care Encounter Source Date/Time Date/Time Type Type Clinicians Facility Department ID 2020-05-27 2020-05-27 Outpatient [facility] [id number] [facility] 2020-02-12 2020-02-12 [facility] [id number] 08:00:00 08:00:00 [facility] ent Clinics 2019-11-13 2019-11-13 [facility] [id number] 08:00:00 08:00:00 [facility] ent Clinics 2019-11-09 2019-11-09 [facility] [id number] 08:00:00 08:00:00 t [facility] 2019-09-14 2019-09-14 [facility] [id number] 16:00:00 16:00:00 [facility] ent Clinics Results Test Description Test Time Test Comments Results Result Comments Source ANTI-MITOCHONDRIAL AB, REFLEX TO TITER 2019-07-06 08:05:00 Test Item Value Reference Range Interpretation Comme nts SCAN RESULT (test code = 9299227) BLOOD [id number] 07:01:00 Test Item Value Reference Range Interpretation Comments CULTURE (BEAKER) (test No growth in 5 days code = 1095) BLOOD [id number] 07:01:00 Test Item Value Reference Range Interpretation Comments CULTURE (BEAKER) (test No growth in 5 days code = 1095) POCT-GLUCOSE [id number] 12:22:00 Test Item Value Reference Range Interpretation Comments POC-GLUCOSE METER 205 mg/dL 70-110 H : TESTED A T [facility] 6720 (BEAKER) (test code = [facility], 1538) 78143: Reconciliation Analyst/Techni radha ID = [id number] for Or phey Janette ALPHA FETOPROTEIN (AFP), TUMOR [id number] 08:57:00 Test Item Value Reference Range Interpretation Comments ALPHA-FETOPROTEIN (BEAKER) (test 3.0 ng/mL <10.0 code = 1094) POCT-GLUCOSE [id number] 08:26:00 Test Item Value Reference Range Interpretation Comments POC-GLUCOSE METER 123 mg/dL 70-110 H : TESTED A T [facility] 6720 (BEAKER) (test code = [facility], 1538) 31693: Reconciliation Analyst/Techni radha ID = [id number] for Or phey, Janette BASIC METABOLIC [id number] 08:19:00 Test Item Value Reference Range Interpretation Comments SODIUM (BEAKER) 142 meq/L 136-145 (test code = 381) POTASSIUM (BEAKER) 3.7 meq/L 3.5-5.1 Specimen slightly (test code = 379) hemolyzed CHLORIDE (BEAKER) 110 meq/L 98-107 H (test code = 382) CO2 (BEAKER) (test 26 meq/L 22-29 code = 355) BLOOD UREA NITROGEN 5 mg/dL 7-21 L (BEAKER) (test code = 354) CREATININE (BEAKER) 0.72 mg/dL 0.57-1.25 Specimen slightly (test code = 358) hemolyzed GLUCOSE RANDOM 111 mg/dL 70-105 H (BEAKER) (test code = 652) CALCIUM (BEAKER) 7.9 mg/dL 8.4-10.2 L (test code = 697) EGFR (BEAKER) (test 119 mL/min/1.73 ESTIM ATED GFR IS code = 1092) sq m NOT ACCURATE CREATININE CLEARANCE IN PREDICTING GLOMERULAR FILTRATION RATE . ESTIMATED GFR I S NOT APPLICABLE FOR DIALYSIS PATIEN TS. CBC W/PLT COUNT & AUTO [id number] 06:59:00 Test Item Value Reference Range Interpretation Comments WHITE BLOOD CELL COUNT 2.4 K/ L 3.5-10.5 L (BEAKER) (test code = 775) RED BLOOD CELL COUNT 2.72 M/ L 4.63-6.08 L (BEAKER) (test code = 761) HEMOGLOBIN (BEAKER) 7.4 GM/DL 13.7-17.5 L (test code = 410) HEMATOCRIT (BEAKER) 23.5 % 40.1-51.0 L (test code = 411) MEAN CORPUSCULAR 86.4 fL 79.0-92.2 VOLUME (BEAKER) (test code = 753) MEAN CORPUSCULAR 27.2 pg 25.7-32.2 HEMOGLOBIN (BEAKER) (test code = 751) MEAN CORPUSCULAR 31.5 GM/DL 32.3-36.5 L HEMOGLOBIN CONC (BEAKER) (test code = 752) RED CELL DISTRIBUTION 18.3 % 11.6-14.4 H WIDTH (BEAKER) (test code = 412) PLATELET COUNT 95 K/CU MM 150-450 L Discordant re sult (BEAKER) (test code = compar ed to previous 756) result; clinica l correlation req uired. MEAN PLATELET VOLUME 11.3 fL 9.4-12.4 (BEAKER) (test code = 754) NUCLEATED RED BLOOD 0 /100 WBC 0-0 CELLS (BEAKER) (test code = 413) NEUTROPHILS RELATIVE 54 % PERCENT (BEAKER) (test code = 429) LYMPHOCYTES RELATIVE 32 % PERCENT (BEAKER) (test code = 430) MONOCYTES RELATIVE 9 % PERCENT (BEAKER) (test code = 431) EOSINOPHILS RELATIVE 4 % PERCENT (BEAKER) (test code = 432) BASOPHILS RELATIVE 0 % PERCENT (BEAKER) (test code = 437) NEUTROPHILS ABSOLUTE 1.32 K/ L 1.78-5.38 L COUNT (BEAKER) (test code = 670) LYMPHOCYTES ABSOLUTE 0.79 K/ L 1.32-3.57 L COUNT (BEAKER) (test code = 414) MONOCYTES ABSOLUTE 0.22 K/ L 0.30-0.82 L COUNT (BEAKER) (test code = 415) EOSINOPHILS ABSOLUTE 0.10 K/ L 0.04-0.54 COUNT (BEAKER) (test code = 416) BASOPHILS ABSOLUTE 0.00 K/ L 0.01-0.08 L COUNT (BEAKER) (test code = 417) IMMATURE 0 % 0-1 GRANULOCYTES-RELATIVE PERCENT (BEAKER) (test code = 2801) POCT-GLUCOSE [id number] 22:23:00 Test Item Value Reference Range Interpretation Comments POC-GLUCOSE METER 187 mg/dL 70-110 H : TESTED A T [facility] 6720 (BEAKER) (test code = [facility] [place], 1538) 20814: Reconciliation Analyst/Techni radha ID = [id number] for Ketan Verdin MR, ABDOMEN, [id number] 18:17:00FINAL REPORT INDICATION:Cirrhosis and questionable (isoechoic) liver lesion on recent ultrasound. COMPARISON: Abdomen ultrasound July 02, 2019 TECHNIQUE: MR of the Abdomen WITHOUT and WITH intravenous contrast. FINDINGS:Irregular liver contour and caudate lobe hypertrophy are in keeping with cirrhosis. No liver mass is demonstrated. The hepatic vasculature is patent. Main portal vein is dilated measuring 2.0 cm in diameter. There are tiny lower esophageal varices and smallomental varices. The spleen is enlarged measuring 16 cm coronal long axis. There is a tiny amount ofperihepatic fluid. Several tiny stones in the gallbladder are noted. There is no inflammatory changearound the gallbladder and there is no biliary ductal dilatation. Pancreas, adrenal glands, kidneys,and visualized bowel loops are unremarkable. There are bilateral tiny pleural effusions. No suspicious marrow replacing lesion is demonstrated. IMPRESSION:Cirrhosis without evidence of hepatocellular carcinoma. Signed: Wilton Madrigal MDReport Verified Date/Time: 07/02/2019 18:17:28 Reading Location: [facility] C0Y CT Body Reading Room ANTI-NUCLEAR ANTIBODY (ENRIQUE) 2019-07-02 10:22:00 Test Item Value Reference Range Interpretation Comments ANTI-NUCLEAR ANTIBODY (ENRIQUE) (BEAKER) Negative Negative (test code = 418) Test performed by IFA method.Test performed by IFA method.HEPATITIS B PANEL 2019-07-02 08:40:00 Test Item Value Reference Range Interpretation Comments HEPATITIS B CORE TOTAL ANTIBODY Nonreactive Nonreactive (BEAKER) (test code = 497) HEPATITIS B SURFACE ANTIBODY < mIU/mL <8.0 (BEAKER) (test code = 647) HEPATITIS B SURFACE ANTIGEN (2) Nonreactive Nonreactive (BEAKER) (test code = 2585) HEPATITIS C [id number] 08:38:00 Test Item Value Reference Range Interpretation Comments HEPATITIS C ANTIBODY (BEAKER) Nonreactive Nonreactive (test code = 367) POCT-GLUCOSE [id number] 08:31:00 Test Item Value Reference Range Interpretation Comments POC-GLUCOSE METER 136 mg/dL 70-110 H : TESTED A T [facility] 6720 (BEAKER) (test code = [facility] [place], 1538) 47562: Reconciliation Analyst/Techni radha ID = [id number] for OSCAR CMAPOS IMMUNOGLOBULIN G (IGG)2019-07-02 08:16:00 Test Item Value Reference Range Interpretation Comments IMMUNOGLOBULIN G (IGG) (BEAKER) 1200 mg/dL 540-1,822 (test code = 427) [id number] 05:52:00 Test Item Value Reference Range Interpretation Comments FERRITIN (BEAKER) (test code = 361) 9 ng/mL 5-275 IRON, TIBC, % SAT. (WITHOUT FERRITIN)2019-07-02 05:41:00 Test Item Value Reference Range Interpretation Comments IRON (BEAKER) (test code = 547) 12.0 ug/dL 40.0-160.0 L TOTAL IRON BINDING CAPACITY 261 ug/dL 250-450 (BEAKER) (test code = 769) IRON % SATURATION (2) (BEAKER) 5 % 20-55 L (test code = 2590) TSH/FREE T4 IF [id number] 04:38:00 Test Item Value Reference Range Interpretation Comments THYROID STIMULATING HORMONE 0.46 uIU/mL 0.35-4.94 (BEAKER) (test code = 772) BASIC METABOLIC [id number] 04:06:00 Test Item Value Reference Range Interpretation Comments SODIUM (BEAKER) 138 meq/L 136-145 (test code = 381) POTASSIUM (BEAKER) 3.3 meq/L 3.5-5.1 L (test code = 379) CHLORIDE (BEAKER) 109 meq/L 98-107 H (test code = 382) CO2 (BEAKER) (test 25 meq/L 22-29 code = 355) BLOOD UREA NITROGEN 8 mg/dL 7-21 (BEAKER) (test code = 354) CREATININE (BEAKER) 0.75 mg/dL 0.57-1.25 (test code = 358) GLUCOSE RANDOM 164 mg/dL 70-105 H (BEAKER) (test code = 652) CALCIUM (BEAKER) 7.2 mg/dL 8.4-10.2 L (test code = 697) EGFR (BEAKER) (test 114 mL/min/1.73 ESTIM ATED GFR IS code = 1092) sq m NOT ACCURATE CREATININE CLEARANCE IN PREDICTING GLOMERULAR FILTRATION RATE . ESTIMATED GFR I S NOT APPLICABLE FOR DIALYSIS PATIEN TS. [id number] 04:04:00 Test Item Value Reference Range Interpretation Comments ALPHA-1 ANTITRYPSIN (BEAKER) 139.90 mg/dL 90.00-200.00 (test code = 502) PROTHROMBIN [id number] 04:02:00 Test Item Value Reference Range Interpretation Comments PROTIME (BEAKER) (test code = 16.0 seconds 11.9-14.2 H 759) INR (BEAKER) (test code = 370) 1.4 <=5.9 Effective 01/14/2019: PT Reference Range ChangeNew: 11.9-14.2 Previous: 11.7- 14.7RECOMMENDED COUMADIN/WARFARIN INR THERAPY RANGESSTANDARD DOSE: 2.0-3.0 Includes: PROPHYLAXIS for venous thrombosis, systemic embolization; TREATMENT for venous thrombosis and/or pulmonary embolus.HIGH RISK: Target INR is2.5-3.5 for patients wiht mechanical heart valves.PROTHROMBIN [id number] 04:02:00 Test Item Value Reference Range Interpretation Comments PROTIME (BEAKER) (test code = 16.1 seconds 11.9-14.2 H 759) INR (BEAKER) (test code = 370) 1.4 <=5.9 Effective 01/14/2019: PT Reference Range ChangeNew: 11.9-14.2 Previous: 11.7- 14.7RECOMMENDED COUMADIN/WARFARIN INR THERAPY RANGESSTANDARD DOSE: 2.0-3.0 Includes: PROPHYLAXIS for venous thrombosis, systemic embolization; TREATMENT for venous thrombosis and/or pulmonary embolus.HIGH RISK: Target INR is2.5-3.5 for patients wiht mechanical heart valves.CBC W/PLT COUNT & AUTO [id number] 03:48:00 Test Item Value Reference Range Interpretation Comments WHITE BLOOD CELL COUNT (BEAKER) 3.0 K/ L 3.5-10.5 L (test code = 775) RED BLOOD CELL COUNT (BEAKER) 2.67 M/ L 4.63-6.08 L (test code = 761) HEMOGLOBIN (BEAKER) (test code = 7.2 GM/DL 13.7-17.5 L 410) HEMATOCRIT (BEAKER) (test code = 22.7 % 40.1-51.0 L 411) MEAN CORPUSCULAR VOLUME (BEAKER) 85.0 fL 79.0-92.2 (test code = 753) MEAN CORPUSCULAR HEMOGLOBIN 27.0 pg 25.7-32.2 (BEAKER) (test code = 751) MEAN CORPUSCULAR HEMOGLOBIN CONC 31.7 GM/DL 32.3-36.5 L (BEAKER) (test code = 752) RED CELL DISTRIBUTION WIDTH 18.0 % 11.6-14.4 H (BEAKER) (test code = 412) PLATELET COUNT (BEAKER) (test code 49 K/CU MM 150-450 L = 756) MEAN PLATELET VOLUME (BEAKER) 10.3 fL 9.4-12.4 (test code = 754) NUCLEATED RED BLOOD CELLS (BEAKER) 0 /100 WBC 0-0 (test code = 413) NEUTROPHILS RELATIVE PERCENT 59 % (BEAKER) (test code = 429) LYMPHOCYTES RELATIVE PERCENT 28 % (BEAKER) (test code = 430) MONOCYTES RELATIVE PERCENT 9 % (BEAKER) (test code = 431) EOSINOPHILS RELATIVE PERCENT 4 % (BEAKER) (test code = 432) BASOPHILS RELATIVE PERCENT 0 % (BEAKER) (test code = 437) NEUTROPHILS ABSOLUTE COUNT 1.78 K/ L 1.78-5.38 (BEAKER) (test code = 670) LYMPHOCYTES ABSOLUTE COUNT 0.83 K/ L 1.32-3.57 L (BEAKER) (test code = 414) MONOCYTES ABSOLUTE COUNT (BEAKER) 0.27 K/ L 0.30-0.82 L (test code = 415) EOSINOPHILS ABSOLUTE COUNT 0.12 K/ L 0.04-0.54 (BEAKER) (test code = 416) BASOPHILS ABSOLUTE COUNT (BEAKER) 0.01 K/ L 0.01-0.08 (test code = 417) IMMATURE GRANULOCYTES-RELATIVE 0 % 0-1 PERCENT (BEAKER) (test code = 2801) U/S, ABDOMINAL, [id number] 00:38:00Reason for exam:->suspected cirrhosisFINAL REPORT INDICATION: suspected cirrhosis COMPARISON: None. TECHNIQUE: Real-time transabdominal nova scale and color Doppler ultrasound of the abdomen. FINDINGS:Liver: Size: 14.9cm. Echogenicity: Heterogeneous. Masses/lesions: Isoechoic nodule measuring 4.1 x 3.7 x 4.3 cm in the caudate lobe. Surface Nodularity: Present. Intrahepatic bile ducts: Normal. Common bile duct: 0.4 cm. MPV: 1.2cm. Gallbladder: Stones: Multiple echogenic stones and sludge seen within the gallbladder lumen. Wall thickness: 0.3 cm. Gallbladder is mildly distended. Pericholecystic fluid: None. Sonographic Cuadra's sign: No sonographic Cuadra's sign. Pancreas: Head and uncinate process: Not well-seen secondary to poor acoustic windowing. Bodyand tail: Not well-seen. Spleen: Size: 16.1cm. Echogenicity: Unremarkable. Right kidney: Size: 13.0 x 5.8 x 6.7 cm. Parenchyma: Normal echogenicity. No cysts. No stones. Hydronephrosis: None. Left kidney: Size: 13.7 x 6.9 x 6.7 cm. Parenchyma: Normal echogenicity. No cysts. No stones. Hydronephrosis: None. Ascites: None. Regional Vasculature: The visible abdominal aorta, IVC and hepatic veins are patent.The aorta measures 2.6 cm proximally, 2.2 cm in the midportion and 2.0 cm distally.Additional findings: None. IMPRESSION: Morphologic changes of cirrhosis sequela of portal hypertension including splenomegaly. Isoechoic lesion in the caudate nucleus measuring up to 4.3 cm. Recommend further evaluation with dedicated hepatic protocol MRI. Cholelithiasis without evidence of acute cholecystitis. Signed: Maria Elena Zepedaort Verified Date/Time: 07/02/2019 00:38:18 POCT-GLUCOSE [id number] 21:58:00 Test Item Value Reference Range Interpretation Comments POC-GLUCOSE METER 188 mg/dL 70-110 H : TESTED A T [facility] 6720 ([facility]) ([facility], 1538) [id number]: Reconciliation Analyst/Techni radha ID = [id number] for DEBO ALLISON POCT-GLUCOSE [id number] 17:35:00 Test Item Value Reference Range Interpretation Comments POC-GLUCOSE METER 200 mg/dL 70-110 H : [facility]: [facility] (test code = TESTED AT [facility] 6720 1538) [facility], [address]: Reconciliation Analyst/Techni radha ID = [id number] for OSCAR CAMPOS HEPATIC FUNCTION [id number] 14:20:00 Test Item Value Reference Range Interpretation Comments TOTAL PROTEIN (BEAKER) (test code = 5.7 gm/dL 6.0-8.3 L 770) ALBUMIN (BEAKER) (test code = 1145) 3.1 g/dL 3.5-5.0 L BILIRUBIN TOTAL (BEAKER) (test code 0.5 mg/dL 0.2-1.2 = 377) BILIRUBIN DIRECT (BEAKER) (test 0.3 mg/dL 0.1-0.5 code = 706) ALKALINE PHOSPHATASE (BEAKER) (test 56 U/L 40-150 code = 346) AST (SGOT) (BEAKER) (test code = 47 U/L 5-34 H 353) ALT (SGPT) (BEAKER) (test code = 31 U/L 6-55 347) CBC W/PLT COUNT & AUTO [id number] 14:01:00 Test Item Value Reference Range Interpretation Comments WHITE BLOOD CELL COUNT (BEAKER) 2.5 K/ L 3.5-10.5 L (test code = 775) RED BLOOD CELL COUNT (BEAKER) 2.90 M/ L 4.63-6.08 L (test code = 761) HEMOGLOBIN (BEAKER) (test code = 7.6 GM/DL 13.7-17.5 L 410) HEMATOCRIT (BEAKER) (test code = 24.3 % 40.1-51.0 L 411) MEAN CORPUSCULAR VOLUME (BEAKER) 83.8 fL 79.0-92.2 (test code = 753) MEAN CORPUSCULAR HEMOGLOBIN 26.2 pg 25.7-32.2 (BEAKER) (test code = 751) MEAN CORPUSCULAR HEMOGLOBIN CONC 31.3 GM/DL 32.3-36.5 L (BEAKER) (test code = 752) RED CELL DISTRIBUTION WIDTH 18.3 % 11.6-14.4 H (BEAKER) (test code = 412) PLATELET COUNT (BEAKER) (test code 58 K/CU MM 150-450 L = 756) MEAN PLATELET VOLUME (BEAKER) 10.8 fL 9.4-12.4 (test code = 754) NUCLEATED RED BLOOD CELLS (BEAKER) 0 /100 WBC 0-0 (test code = 413) NEUTROPHILS RELATIVE PERCENT 54 % (BEAKER) (test code = 429) LYMPHOCYTES RELATIVE PERCENT 32 % (BEAKER) (test code = 430) MONOCYTES RELATIVE PERCENT 10 % (BEAKER) (test code = 431) EOSINOPHILS RELATIVE PERCENT 4 % (BEAKER) (test code = 432) BASOPHILS RELATIVE PERCENT 1 % (BEAKER) (test code = 437) NEUTROPHILS ABSOLUTE COUNT 1.33 K/ L 1.78-5.38 L (BEAKER) (test code = 670) LYMPHOCYTES ABSOLUTE COUNT 0.78 K/ L 1.32-3.57 L (BEAKER) (test code = 414) MONOCYTES ABSOLUTE COUNT (BEAKER) 0.24 K/ L 0.30-0.82 L (test code = 415) EOSINOPHILS ABSOLUTE COUNT 0.10 K/ L 0.04-0.54 (BEAKER) (test code = 416) BASOPHILS ABSOLUTE COUNT (BEAKER) 0.02 K/ L 0.01-0.08 (test code = 417) IMMATURE GRANULOCYTES-RELATIVE 0 % 0-1 PERCENT (BEAKER) (test code = 2801) POCT-GLUCOSE [id number] 13:05:00 Test Item Value Reference Range Interpretation Comments POC-GLUCOSE METER 152 mg/dL 70-110 H : TESTED A T [facility] 6720 (BEAKER) (test code = [facility] [place], 1538) [address]: Reconciliation Analyst/Techni radha ID = [id number] for OSCAR CAMPOS BASIC METABOLIC [id number] 10:18:00 Test Item Value Reference Range Interpretation Comments SODIUM (BEAKER) 137 meq/L 136-145 (test code = 381) POTASSIUM (BEAKER) 3.6 meq/L 3.5-5.1 (test code = 379) CHLORIDE (BEAKER) 109 meq/L 98-107 H (test code = 382) CO2 (BEAKER) (test 23 meq/L 22-29 code = 355) BLOOD UREA NITROGEN 14 mg/dL 7-21 (BEAKER) (test code = 354) CREATININE (BEAKER) 0.78 mg/dL 0.57-1.25 (test code = 358) GLUCOSE RANDOM 140 mg/dL 70-105 H (BEAKER) (test code = 652) CALCIUM (BEAKER) 7.2 mg/dL 8.4-10.2 L (test code = 697) EGFR (BEAKER) (test 109 mL/min/1.73 ESTIM ATED GFR IS code = 1092) sq m NOT ACCURATE CREATININE CLEARANCE IN PREDICTING GLOMERULAR FILTRATION RATE . ESTIMATED GFR I S NOT APPLICABLE FOR DIALYSIS PATIEN TS. HEPATIC FUNCTION [id number] 10:15:00 Test Item Value Reference Range Interpretation Comments TOTAL PROTEIN (BEAKER) (test code = 5.3 gm/dL 6.0-8.3 L 770) ALBUMIN (BEAKER) (test code = 1145) 2.9 g/dL 3.5-5.0 L BILIRUBIN TOTAL (BEAKER) (test code 0.6 mg/dL 0.2-1.2 = 377) BILIRUBIN DIRECT (BEAKER) (test 0.3 mg/dL 0.1-0.5 code = 706) ALKALINE PHOSPHATASE (BEAKER) (test 55 U/L 40-150 code = 346) AST (SGOT) (BEAKER) (test code = 37 U/L 5-34 H 353) ALT (SGPT) (BEAKER) (test code = 27 U/L 6-55 347) PROTHROMBIN [id number] 07:18:00 Test Item Value Reference Range Interpretation Comments PROTIME (BEAKER) (test code = 16.3 seconds 11.9-14.2 H 759) INR (BEAKER) (test code = 370) 1.4 <=5.9 Effective 01/14/2019: PT Reference Range ChangeNew: 11.9-14.2 Previous: 11.7- 14.7RECOMMENDED COUMADIN/WARFARIN INR THERAPY RANGESSTANDARD DOSE: 2.0-3.0 Includes: PROPHYLAXIS for venous thrombosis, systemic embolization; TREATMENT for venous thrombosis and/or pulmonary embolus.HIGH RISK: Target INR is2.5-3.5 for patients wiht mechanical heart valves.CBC W/PLT COUNT & AUTO [id number] 07:06:00 Test Item Value Reference Range Interpretation Comments WHITE BLOOD CELL COUNT (BEAKER) 2.6 K/ L 3.5-10.5 L (test code = 775) RED BLOOD CELL COUNT (BEAKER) 2.70 M/ L 4.63-6.08 L (test code = 761) HEMOGLOBIN (BEAKER) (test code = 7.1 GM/DL 13.7-17.5 L 410) HEMATOCRIT (BEAKER) (test code = 22.6 % 40.1-51.0 L 411) MEAN CORPUSCULAR VOLUME (BEAKER) 83.7 fL 79.0-92.2 (test code = 753) MEAN CORPUSCULAR HEMOGLOBIN 26.3 pg 25.7-32.2 (BEAKER) (test code = 751) MEAN CORPUSCULAR HEMOGLOBIN CONC 31.4 GM/DL 32.3-36.5 L (BEAKER) (test code = 752) RED CELL DISTRIBUTION WIDTH 18.5 % 11.6-14.4 H (BEAKER) (test code = 412) PLATELET COUNT (BEAKER) (test code 55 K/CU MM 150-450 L = 756) MEAN PLATELET VOLUME (BEAKER) 10.7 fL 9.4-12.4 (test code = 754) NUCLEATED RED BLOOD CELLS (BEAKER) 0 /100 WBC 0-0 (test code = 413) NEUTROPHILS RELATIVE PERCENT 51 % (BEAKER) (test code = 429) LYMPHOCYTES RELATIVE PERCENT 35 % (BEAKER) (test code = 430) MONOCYTES RELATIVE PERCENT 9 % (BEAKER) (test code = 431) EOSINOPHILS RELATIVE PERCENT 4 % (BEAKER) (test code = 432) BASOPHILS RELATIVE PERCENT 0 % (BEAKER) (test code = 437) NEUTROPHILS ABSOLUTE COUNT 1.31 K/ L 1.78-5.38 L (BEAKER) (test code = 670) LYMPHOCYTES ABSOLUTE COUNT 0.90 K/ L 1.32-3.57 L (BEAKER) (test code = 414) MONOCYTES ABSOLUTE COUNT (BEAKER) 0.23 K/ L 0.30-0.82 L (test code = 415) EOSINOPHILS ABSOLUTE COUNT 0.11 K/ L 0.04-0.54 (BEAKER) (test code = 416) BASOPHILS ABSOLUTE COUNT (BEAKER) 0.01 K/ L 0.01-0.08 (test code = 417) IMMATURE GRANULOCYTES-RELATIVE 1 % 0-1 PERCENT (BEAKER) (test code = 2801) URINALYSIS W/ REFLEX URINE [id number] 01:38:00 Test Item Value Reference Range Interpretation Comments COLOR (BEAKER) (test code = 470) Yellow CLARITY (BEAKER) (test code = 469) Clear SPECIFIC GRAVITY UA (BEAKER) (test 1.018 1.001-1.035 code = 468) PH UA (BEAKER) (test code = 467) 6.0 5.0-8.0 PROTEIN UA (BEAKER) (test code = Negative Negative 464) GLUCOSE UA (BEAKER) (test code = Negative Negative 365) KETONES UA (BEAKER) (test code = Negative Negative 371) BILIRUBIN UA (BEAKER) (test code = Negative Negative 462) BLOOD UA (BEAKER) (test code = 461) Negative Negative NITRITE UA (BEAKER) (test code = Negative Negative 465) LEUKOCYTE ESTERASE UA (BEAKER) Moderate Negative A (test code = 466) UROBILINOGEN UA (BEAKER) (test code 0.2 mg/dL 0.2-1.0 = 463) RBC UA (BEAKER) (test code = 519) 0 /HPF WBC UA (BEAKER) (test code = 520) 1 /HPF SOURCE(BEAKER) (test code = 2795) POCT-GLUCOSE [id number] 21:13:00 Test Item Value Reference Range Interpretation Comments POC-GLUCOSE METER 117 mg/dL 70-110 H : TESTED A T [facility] 6720 (BEAKER) (test code = [place], 1538) [id number]: Reconciliation Analyst/Techni radha ID = [id number] for EDGAR ROJO CBC W/PLT COUNT & AUTO [id number] 20:49:00 Test Item Value Reference Range Interpretation Comments WHITE BLOOD CELL COUNT (BEAKER) 3.6 K/ L 3.5-10.5 (test code = 775) RED BLOOD CELL COUNT (BEAKER) 2.57 M/ L 4.63-6.08 L (test code = 761) HEMOGLOBIN (BEAKER) (test code = 6.7 GM/DL 13.7-17.5 L 410) HEMATOCRIT (BEAKER) (test code = 21.4 % 40.1-51.0 L 411) MEAN CORPUSCULAR VOLUME (BEAKER) 83.3 fL 79.0-92.2 (test code = 753) MEAN CORPUSCULAR HEMOGLOBIN 26.1 pg 25.7-32.2 (BEAKER) (test code = 751) MEAN CORPUSCULAR HEMOGLOBIN CONC 31.3 GM/DL 32.3-36.5 L (BEAKER) (test code = 752) RED CELL DISTRIBUTION WIDTH 18.6 % 11.6-14.4 H (BEAKER) (test code = 412) PLATELET COUNT (BEAKER) (test code 52 K/CU MM 150-450 L = 756) MEAN PLATELET VOLUME (BEAKER) 10.6 fL 9.4-12.4 (test code = 754) NUCLEATED RED BLOOD CELLS (BEAKER) 0 /100 WBC 0-0 (test code = 413) NEUTROPHILS RELATIVE PERCENT 54 % (BEAKER) (test code = 429) LYMPHOCYTES RELATIVE PERCENT 32 % (BEAKER) (test code = 430) MONOCYTES RELATIVE PERCENT 8 % (BEAKER) (test code = 431) EOSINOPHILS RELATIVE PERCENT 4 % (BEAKER) (test code = 432) BASOPHILS RELATIVE PERCENT 1 % (BEAKER) (test code = 437) NEUTROPHILS ABSOLUTE COUNT 1.94 K/ L 1.78-5.38 (BEAKER) (test code = 670) LYMPHOCYTES ABSOLUTE COUNT 1.15 K/ L 1.32-3.57 L (BEAKER) (test code = 414) MONOCYTES ABSOLUTE COUNT (BEAKER) 0.30 K/ L 0.30-0.82 (test code = 415) EOSINOPHILS ABSOLUTE COUNT 0.14 K/ L 0.04-0.54 (BEAKER) (test code = 416) BASOPHILS ABSOLUTE COUNT (BEAKER) 0.03 K/ L 0.01-0.08 (test code = 417) IMMATURE GRANULOCYTES-RELATIVE 1 % 0-1 PERCENT (BEAKER) (test code = 2801) POCT-GLUCOSE [id number] 14:13:00 Test Item Value Reference Range Interpretation Comments POC-GLUCOSE METER 171 mg/dL 70-110 H : TESTED A T [facility] 6720 (BEAKER) (test code = [place], 1538) [id number]: Reconciliation Analyst/Techni radha ID = [id number] for [place] Janette du CBC W/PLT COUNT & AUTO [id number] 12:20:00 Test Item Value Reference Range Interpretation Comments WHITE BLOOD CELL COUNT (BEAKER) 4.8 K/ L 3.5-10.5 (test code = 775) RED BLOOD CELL COUNT (BEAKER) 2.80 M/ L 4.63-6.08 L (test code = 761) HEMOGLOBIN (BEAKER) (test code = 7.3 GM/DL 13.7-17.5 L 410) HEMATOCRIT (BEAKER) (test code = 23.2 % 40.1-51.0 L 411) MEAN CORPUSCULAR VOLUME (BEAKER) 82.9 fL 79.0-92.2 (test code = 753) MEAN CORPUSCULAR HEMOGLOBIN 26.1 pg 25.7-32.2 (BEAKER) (test code = 751) MEAN CORPUSCULAR HEMOGLOBIN CONC 31.5 GM/DL 32.3-36.5 L (BEAKER) (test code = 752) RED CELL DISTRIBUTION WIDTH 18.4 % 11.6-14.4 H (BEAKER) (test code = 412) PLATELET COUNT (BEAKER) (test code 56 K/CU MM 150-450 L = 756) MEAN PLATELET VOLUME (BEAKER) 10.7 fL 9.4-12.4 (test code = 754) NUCLEATED RED BLOOD CELLS (BEAKER) 0 /100 WBC 0-0 (test code = 413) NEUTROPHILS RELATIVE PERCENT 74 % (BEAKER) (test code = 429) LYMPHOCYTES RELATIVE PERCENT 17 % (BEAKER) (test code = 430) MONOCYTES RELATIVE PERCENT 7 % (BEAKER) (test code = 431) EOSINOPHILS RELATIVE PERCENT 2 % (BEAKER) (test code = 432) BASOPHILS RELATIVE PERCENT 0 % (BEAKER) (test code = 437) NEUTROPHILS ABSOLUTE COUNT 3.53 K/ L 1.78-5.38 (BEAKER) (test code = 670) LYMPHOCYTES ABSOLUTE COUNT 0.81 K/ L 1.32-3.57 L (BEAKER) (test code = 414) MONOCYTES ABSOLUTE COUNT (BEAKER) 0.31 K/ L 0.30-0.82 (test code = 415) EOSINOPHILS ABSOLUTE COUNT 0.10 K/ L 0.04-0.54 (BEAKER) (test code = 416) BASOPHILS ABSOLUTE COUNT (BEAKER) 0.02 K/ L 0.01-0.08 (test code = 417) IMMATURE GRANULOCYTES-RELATIVE 0 % 0-1 PERCENT (BEAKER) (test code = 2801) HEMOGLOBIN [id number] 08:15:00 Test Item Value Reference Range Interpretation Comments HEMOGLOBIN A1C (BEAKER) (test code = 7.0 % 4.3-6.1 H 368) POCT-GLUCOSE [id number] 07:09:00 Test Item Value Reference Range Interpretation Comments POC-GLUCOSE METER 193 mg/dL 70-110 H : TESTED A T [facility] 6720 (BEAKER) (test code = [place], 1538) [address]: Reconciliation Analyst/Techni radha ID = [id number] for [place] Janette du CBC W/PLT COUNT & AUTO [id number] 05:52:00 Test Item Value Reference Range Interpretation Comments WHITE BLOOD CELL COUNT (BEAKER) 4.5 K/ L 3.5-10.5 (test code = 775) RED BLOOD CELL COUNT (BEAKER) 2.91 M/ L 4.63-6.08 L (test code = 761) HEMOGLOBIN (BEAKER) (test code = 7.5 GM/DL 13.7-17.5 L 410) HEMATOCRIT (BEAKER) (test code = 24.0 % 40.1-51.0 L 411) MEAN CORPUSCULAR VOLUME (BEAKER) 82.5 fL 79.0-92.2 (test code = 753) MEAN CORPUSCULAR HEMOGLOBIN 25.8 pg 25.7-32.2 (BEAKER) (test code = 751) MEAN CORPUSCULAR HEMOGLOBIN CONC 31.3 GM/DL 32.3-36.5 L (BEAKER) (test code = 752) RED CELL DISTRIBUTION WIDTH 18.3 % 11.6-14.4 H (BEAKER) (test code = 412) PLATELET COUNT (BEAKER) (test code 62 K/CU MM 150-450 L = 756) MEAN PLATELET VOLUME (BEAKER) 11.2 fL 9.4-12.4 (test code = 754) NUCLEATED RED BLOOD CELLS (BEAKER) 0 /100 WBC 0-0 (test code = 413) NEUTROPHILS RELATIVE PERCENT 69 % (BEAKER) (test code = 429) LYMPHOCYTES RELATIVE PERCENT 19 % (BEAKER) (test code = 430) MONOCYTES RELATIVE PERCENT 9 % (BEAKER) (test code = 431) EOSINOPHILS RELATIVE PERCENT 2 % (BEAKER) (test code = 432) BASOPHILS RELATIVE PERCENT 0 % (BEAKER) (test code = 437) NEUTROPHILS ABSOLUTE COUNT 3.13 K/ L 1.78-5.38 (BEAKER) (test code = 670) LYMPHOCYTES ABSOLUTE COUNT 0.86 K/ L 1.32-3.57 L (BEAKER) (test code = 414) MONOCYTES ABSOLUTE COUNT (BEAKER) 0.42 K/ L 0.30-0.82 (test code = 415) EOSINOPHILS ABSOLUTE COUNT 0.10 K/ L 0.04-0.54 (BEAKER) (test code = 416) BASOPHILS ABSOLUTE COUNT (BEAKER) 0.01 K/ L 0.01-0.08 (test code = 417) IMMATURE GRANULOCYTES-RELATIVE 0 % 0-1 PERCENT (BEAKER) (test code = 2801) BASIC METABOLIC [id number] 05:32:00 Test Item Value Reference Range Interpretation Comments SODIUM (BEAKER) 135 meq/L 136-145 L (test code = 381) POTASSIUM (BEAKER) 4.1 meq/L 3.5-5.1 (test code = 379) CHLORIDE (BEAKER) 106 meq/L 98-107 (test code = 382) CO2 (BEAKER) (test 24 meq/L 22-29 code = 355) BLOOD UREA NITROGEN 21 mg/dL 7-21 (BEAKER) (test code = 354) CREATININE (BEAKER) 0.70 mg/dL 0.57-1.25 (test code = 358) GLUCOSE RANDOM 196 mg/dL 70-105 H (BEAKER) (test code = 652) CALCIUM (BEAKER) 7.7 mg/dL 8.4-10.2 L (test code = 697) EGFR (BEAKER) (test 123 mL/min/1.73 ESTIM ATED GFR IS code = 1092) sq m NOT ACCURATE CREATININE CLEARANCE IN PREDICTING GLOMERULAR FILTRATION RATE . ESTIMATED GFR I S NOT APPLICABLE FOR DIALYSIS PATIEN TS. HEPATIC FUNCTION [id number] 05:26:00 Test Item Value Reference Range Interpretation Comments TOTAL PROTEIN (BEAKER) (test code = 5.7 gm/dL 6.0-8.3 L 770) ALBUMIN (BEAKER) (test code = 1145) 3.1 g/dL 3.5-5.0 L BILIRUBIN TOTAL (BEAKER) (test code 0.7 mg/dL 0.2-1.2 = 377) BILIRUBIN DIRECT (BEAKER) (test 0.3 mg/dL 0.1-0.5 code = 706) ALKALINE PHOSPHATASE (BEAKER) (test 64 U/L 40-150 code = 346) AST (SGOT) (BEAKER) (test code = 22 U/L 5-34 353) ALT (SGPT) (BEAKER) (test code = 23 U/L 6-55 347) PROTHROMBIN [id number] 05:25:00 Test Item Value Reference Range Interpretation Comments PROTIME (BEAKER) (test code = 16.1 seconds 11.9-14.2 H 759) INR (BEAKER) (test code = 370) 1.4 <=5.9 Effective 01/14/2019: PT Reference Range ChangeNew: 11.9-14.2 Previous: 11.7- 14.7RECOMMENDED COUMADIN/WARFARIN INR THERAPY RANGESSTANDARD DOSE: 2.0-3.0 Includes: PROPHYLAXIS for venous thrombosis, systemic embolization; TREATMENT for venous thrombosis and/or pulmonary embolus.HIGH RISK: Target INR is2.5-3.5 for patients wiht mechanical heart valves.
[2020-09-28 04:00] LABS: Absolute Lymphocytes (CBC) 0.7 K/uL (0.7-4.9); Basophils % 0.5 % (0-1.3); Hematocrit 23.8 % (39.6-49.0); Lymphocytes % 29.5 % (15.3-44.8); MPV 9.4 fL (7.6-11.3); RBC Red Blood Cell Count 2.66 M/uL (4.33-5.43)
[2020-09-28] MEDS: PANTOPRAZOLE INJ 80 MG in NA CHLORIDE 0.9% 250 ML IV SCH ×2 (04:26→16:37)
[2020-09-28] MEDS: OCTREOTIDE 500 MCG in NA CHLORIDE 0.9% 500 ML IV SCH ×3 (04:26→23:24)
[2020-09-28 04:32] LABS: ALT/SGPT 63 U/L (12-78); AST/SGOT 85 U/L (15-37); Albumin 2.7 g/dL (3.4-5.0); Alkaline Phosphatase 75 U/L (45-117); BUN Blood Urea Nitrogen 23 mg/dL (7-18); Bicarbonate 27 mmol/L (21-32); Bilirubin Total 0.6 mg/dL (0.2-1.0); Glucose Level 122 mg/dL (74-106); Potassium 3.8 mmol/L (3.5-5.1); Protein, Total 5.7 g/dL (6.4-8.2); Sodium Level 143 mmol/L (136-145)
[2020-09-28] MEDS: INSULIN -REGULAR HUMAN 50 UNIT/0.5 ML ML SQ SCH ×4 (07:30→20:23)
[2020-09-28 07:43] LABS: Blood Morphology Comment NOT SEEN (NOT SEEN); Platelet Estimate DECR; Platelets, Giant FEW
[2020-09-28] MEDS: CEFTRIAXONE/SWI 1gm 1 GM/10 ML SYR IVP SCH ×2 (09:41→20:06)
--- NOTE | 2020-09-28 14:10 | P.PN ---
Subjective Date of Service: 09/28/20 Chief Complaint: GI bleed. Status post EGD. Patient noted to have large esophageal varices, ulcerated gastric varices which were banded. Patient states not had a bowel movement since yesterday. No vomiting. Hemoglobin dropped from 10-8 but has remained stable at 8. Patient on octreotide and Protonix drip. He denies any abdominal pain. Physical Examination - Vital Signs Temperature: 98.8 F Blood Pressure: 100/59 Pulse: 84 Respirations: 18 Pulse Ox (%): 98 - Physical Exam General: Alert, In no apparent distress, Oriented x3 Neck: JVD not distended Cardiovascular: No edema, Regular rate/rhythm Gastrointestinal: Soft and benign, Non-distended Musculoskeletal: No swelling Integumentary: No rashes Neurological: Other (No focal motor deficit.) Assessment And Plan - Current Problems (Diagnosis) (1) GI bleed Current Visit: Yes Status: Acute (2) Liver cirrhosis Current Visit: Yes Status: Acute (3) Acute blood loss anemia Current Visit: Yes Status: Acute (4) DM type 2 (diabetes mellitus, type 2) Current Visit: Yes Status: Acute - Plan Keep NPO given banded large varices. Continue octreotide drip and Protonix drip. Continue to monitor H&H for the next 24 hrs per GI recommendation. Transfer to tertiary center if his hemoglobin drop indicating ongoing bleeding in which case patient will need TIPS per GI recommendation Continue IV fluid with dexrose. Monitor H&H and transfuse p.r.n. for hemoglobin less than 7. Prophylactic IV Rocephin. Patient is asymptomatic from the COVID 19.
[2020-09-28] MEDS: D5NS KCL 20MEQ 20 MEQ/1,000 ML BAG IV SCH (15:00)
[2020-09-29] MEDS: PANTOPRAZOLE INJ 80 MG in NA CHLORIDE 0.9% 250 ML IV SCH ×2 (00:30→10:54)
[2020-09-29] MEDS: D5NS KCL 20MEQ 20 MEQ/1,000 ML BAG IV SCH ×2 (02:13→16:42)
[2020-09-29] MEDS: INSULIN -REGULAR HUMAN 50 UNIT/0.5 ML ML SQ SCH ×3 (07:30→16:41)
[2020-09-29] MEDS: CEFTRIAXONE/SWI 1gm 1 GM/10 ML SYR IVP SCH (08:39)
[2020-09-29] MEDS: OCTREOTIDE 500 MCG in NA CHLORIDE 0.9% 500 ML IV SCH (10:55)
[2020-09-29] MEDS ORDERED: nadoloL 40 MG TAB PO SCH (11:18)
--- NOTE | 2020-09-29 11:27 | P.DS ---
Admission Date: 09/26/20 Discharge Date: 09/29/20 Disposition: ROUTINE DISCHARGE Discharge Condition: FAIR Reason for Admission: GI bleed. - Problems (1) GI bleed Current Visit: Yes Status: Acute (2) Liver cirrhosis Current Visit: Yes Status: Acute (3) Acute blood loss anemia Current Visit: Yes Status: Acute (4) DM type 2 (diabetes mellitus, type 2) Current Visit: Yes Status: Acute Brief History of Present Illness: 44-year-old gentleman with a history of diabetes and liver cirrhosis presented to the emergency department with a complaint hematemesis and melena. His hemoglobin was 12.9 on arrival. Patient suspected to have bleeding esophageal varices or peptic ulcer disease. Patient was started on IV Protonix and admitted for further management. Hospital Course: Patient admitted to the medical floor and started on IV Protonix and octreotide drip. Hemoglobin was monitored every 8 hours. Of note patient tested positive for COVID 19 but was asymptomatic from it. He was seen and evaluated by a cut off sawyer Dr. Chi, EGD was performed which showed large esophageal varices and gastric varices with ulceration. The varices were banded. Patient was monitored for another 2 days with no active bleeding. The melena and hematemesis stopped. Hemoglobin dropped but remained stable around 8. Patient tolerated soft diet. Noted his blood pressure was soft, patient was tried on Nadolol and his systolic blood pressure dropped to 80. Vitals are now stable. Patient is discharged to follow up with Dr. Chi as an outpatient. Vital Signs/Physical Exam: Temp Pulse Resp BP Pulse Ox 99 F 91 H 18 109/57 L 96 09/29/20 08:00 09/29/20 08:00 09/29/20 08:00 09/29/20 08:00 09/29/20 08:00 General: Alert, In no apparent distress, Oriented x3 HEENT: Mucous membr. moist/pink Neck: JVD not distended Cardiovascular: No edema, Regular rate/rhythm Gastrointestinal: Soft and benign, Non-distended, No tenderness Musculoskeletal: No swelling Integumentary: No rashes Neurological: Other (No focal motor deficit.) Laboratory Data at Discharge: WBC 2.30 K/uL (4.3-10.9) L D 09/28/20 03:18 Hgb 8.2 g/dL (13.6-17.9) L 09/28/20 16:07 Hct 23.8 % (39.6-49.0) L D 09/28/20 03:18 Plt Count 52 K/uL (152-406) L D 09/28/20 03:18 PT 14.4 SECONDS (9.5-12.5) H 09/26/20 21:10 INR 1.25 09/26/20 21:10 Sodium 143 mmol/L (136-145) 09/28/20 03:18 Potassium 3.8 mmol/L (3.5-5.1) 09/28/20 03:18 BUN 23 mg/dL (7-18) H 09/28/20 03:18 Creatinine 0.67 mg/dL (0.55-1.3) 09/28/20 03:18 Glucose 122 mg/dL (74-106) H 09/28/20 03:18 Total Bilirubin 0.6 mg/dL (0.2-1.0) 09/28/20 03:18 AST 85 U/L (15-37) H 09/28/20 03:18 ALT 63 U/L (12-78) 09/28/20 03:18 Alkaline Phosphatase 75 U/L (45-117) 09/28/20 03:18 Lipase 70 U/L (73-393) L 09/26/20 21:10 Home Medications: Alogliptin Abdias/Metformin HCl [Kazano 12.5-1,000 mg Tablet] 1 each PO BID 02/07/15 Amoxicillin/Potassium Clav [Augmentin 875-125 Tablet] 1 each PO BID #20 tablet 02/12/15 Codeine/APAP [Tylenol #3*] 1 tab PO Q8H PRN #20 tab 02/12/15 Iron Polysaccharide Complex [Polysaccharide Iron] 150 mg PO DAILY #30 capsule 09/29/20 Pantoprazole [Protonix Tab] 40 mg PO BID #60 tab 09/29/20 New Medications: Iron Polysaccharide Complex [Polysaccharide Iron] 150 mg PO DAILY #30 capsule Pantoprazole [Protonix Tab] 40 mg PO BID #60 tab Followup: NONE,NONE [Primary Care Provider] - 1-2 Weeks Demetrio Chi MD [ACTIVE - CAN ADMIT] - 1-2 Weeks Time spent managing pt's care (in minutes): 36
[2020-09-29 17:29] VITALS: TEMP 99.2
[2020-09-29 19:56] VITALS: BP 98/53
[2020-09-29 20:53] VITALS: O2SAT 98
== END 2020-09-29 20:53 | disposition home or self-care (01) | DRG 368 ==
LOC: ER 16:26 → ERHOLD 22:56 → 4TH 23:45
PROVIDERS: ADMIT Family Medicine; ATTEND Internal Medicine
PROC: 0DJ08ZZ Inspection of Upper Intestinal Tract, Via Natural or Artificial Opening Endoscopic (ICD-10-PCS; principal; 2020-09-27 16:00)
DX: I85.01 Esophageal varices with bleeding (principal); U07.1 COVID-19; D62 Acute posthemorrhagic anemia; K25.4 Chronic or unspecified gastric ulcer with hemorrhage; E11.9 Type 2 diabetes mellitus without complications; K74.60 Unspecified cirrhosis of liver; Z79.899 Other long term (current) drug therapy
CPT/HCPCS: 36415; 74018; 80048; 80053; 80076; 81003; 82947; 83690; 85018; 85025; 85610; 86850; 86900; 86901; 99285; C9113; J0696; J2250; J2354; J2405; J2704; J3480; J7030; J7040; J7050; U0003

== ENCOUNTER 2022-07-22 19:57 | Emergency (ER) | payer SELFPAY ==
--- OUTSIDE RECORDS SUMMARY | 2022-07-22 20:01 | XMS REPORT | Continuity of Care Document ---
:1975 Author Organization [facility] t Address [address] [place] [address] Care Team Providers Name Role Phone Dafne Akins Attending Clinician Unavailable CHELY AGUILERA Attending Clinician Unavailable JENNIFFER AL Admitting Clinician Unavailable Problems Condition Condition Condition Status Onset Resolution Last Treating Co mments Source Name Details Category Date Date Treatment Clinician Date GIB GIB Disease Active 2018-[address] [facility]astroint (gastroint 1-[address] [facility] estinal estinal 00:00: Medical bleeding) bleeding) 00 Cent er [id number] Thrombocyt Problem Active Co mmon openia Spirit - [facility] [id number] Controlled Problem Active Co mmon type 2 Spirit diabetes - [facility] mellitus [facility] complicati Medica l on, Center without long-term current use of insulin [id number] Other iron Problem Active Com mon deficiency Spirit anemia - [facility] [id number] Alcoholic Problem Active Com mon cirrhosis Spirit of liver - [facility] without [facility] [id number] Secondary Problem Active Comm on esophageal Spirit varices - [facility] with [facility] [id number] Leukopenia Problem Active Com mon , Spirit unspecifie - [facility]I d type [facility] Allergies, Adverse Reactions, Alerts This patient has no known allergies or adverse reactions. Family History Family Member Diagnosis Comments Start Date Stop Date Source Natural brother Diabetes [facility] Natural father Diabetes [facility] Natural father Heart disease [facility] Natural mother Diabetes [facility] Natural sister Diabetes [facility] Social History Social Habit Start Date Stop Date Quantity Comments Source History SDOH [facility] History SDOH [facility] Alcohol Std Drinks Medica l Center History SDOH [facility] Alcohol Binge Medical Danie ter History of Tobacco Never Smoker Comm on Spirit - Use [facility] Alcohol intake 2019-07-01 2019-07-01 Current drinker EDER Mike 00:00:00 00:00:00 of alcohol Medical Center (finding) Alcohol Comment 2019-06-30 2019-06-30 Last drink 06/[address] [facility] 00:00:00 00:00:00 [facility] Center Cigarettes smoked 2019-06-30 2019-06-30 [facility] current (pack per 00:00:00 00:00:00 Medical Center day) - Reported Tobacco use and 2019-06-30 2019-06-30 Never used [facility] Griselda [facility] exposure 00:00:00 00:00:00 [facility] Center Sex Assigned At [birth year] [facility] 00:00:00 00:00:00 [facility] Center Smoking Status Start Date Stop Date Source Never Smoker Common [facility] Current every day smoker 2019-06-30 00:00:00 [facility] Medications Ordered Filled Start Stop Current Ordering Indication Dosage Frequency Signature Comments Components Source Medication Medication Date Date Medication? Clinician (SIG) Name Name Will Solis Yes Na Akins 1 Common ne ne 02-11 applicatio Spirit Acetonide Acetonide 00:00: n to - C HI 00 affected [facility] Mupirocin Mupirocin 2020- No Na Akins 1 Common 02-11 07-10 applicatio Spirit 00:00: 00:00 n to - CHI 00 :00 affected [facility] metFORMIN 2018-08 Yes 1000mg Take 1,[address] (GLUCOPHAGE 1-15 [facility] ) 1000 MG 17:19: mouth Medical tablet 27 daily with Center breakfast. metFORMIN 2018-08 Yes 500mg QD Take [address] (GLUCOPHAGE 1[facility] ) 500 MG 17:19: mouth Medical tablet 27 every Center evening. Protonix Protonix Yes Na Aknis 1 tablet Common [facility] Propranolol Propranolol Yes Na Akins 1 tablet Common HCl HCl on an Spirit empty - CHI stomach [facility] Glimepiride Glimepiride Yes Na Akins 1 tablet [facility] One Touch One Touch Yes Na Akins one strip Common test strips test strips [facility] One Touch One Touch Yes Na Akins one strip Common Verio Verio [facility] Metformin Metformin Yes Na Akins 1 tablet Common HCl HCl with a Spirit meal [facility] One Touch One Touch No One Touch test strips test strips test test strips test strips strips test strips Protonix 40 Protonix 40 No 1{table QD Protonix MG MG t} 40 MG Triamcinolo Triamcinolo No 1{appli BID Triamcinol ne ne cation_ one Acetonide Acetonide to_affe Acetonide 0.1 % 0.1 % cted_ar 0.1 % ea} One Touch One Touch No QD One Touch Verio n/s Verio n/s Verio n/s Glimepiride Glimepiride No 1{table QD Glimepirid 2 MG 2 MG t} e 2 MG Metformin Metformin No 1{table BID Metformin HCl 1000 MG HCl 1000 MG t_with_ HCl 1000 a_meal} MG Propranolol Propranolol No 1{table BID Propranolo HCl 10 MG HCl 10 MG t_on_an l HCl 10 _empty_ MG stomach } Vital Signs Vital Name Observation Time Observation Value Comments Source height 2020-05-27 11:00:00 66.00 [in_i] [facility] weight 2020-05-27 11:00:00 202.6 [lb_av] [facility] temperature 2020-05-27 11:00:00 98.6 [degF] [facility] bmi 2020-05-27 11:00:00 32.70 kg/m2 [facility] oximetry 2020-05-27 11:00:00 96 % [facility] respiratory rate 2020-05-27 11:00:00 16 /min Comm on [facility] blood pressure 2020-05-27 11:00:00 138 mm[Hg] Common [facility] - systolic [facility] blood pressure 2020-05-27 11:00:00 75 mm[Hg] Common [facility] - diastolic [facility] Procedures This patient has no known procedures. Encounters Start End Encounter Admission Attending Care Care Encounter Source Date/Time Date/Time Type Type Clinicians Facility Department ID 2021-09-13 Outpatient Akins, Na STLMLC STLMLC [id number] 2 Common 11:53:42 [id number] [facility] 2021-09-13 Outpatient Akins, Na STLMLC STLMLC [id number] 2 Common 11:52:46 [id number] [facility] 2021-09-13 Outpatient Akins, Na STLMLC STLMLC [id number] 2 Common 11:28:27 [id number] [facility] 2021-09-13 Outpatient Akins, Na STLMLC STLMLC [id number] 2 Common 11:18:09 [id number] [facility] 2021-09-13 Outpatient Akins, Na STLMLC STLMLC [id number] 2 Common 11:01:39 [id number] [facility] 2020-05-27 2020-05-27 OFFICE STLMLC STLMLC [id number] Co mmon 00:00:00 00:00:00 VISIT EST Spir it PT LEVEL 3 [facility] 2020-02-12 2020-02-12 [facility] [id number] Common 08:00:00 08:00:[address] Sp[address] [facility] 2019-11-13 2019-11-13 [facility] 30 [id number] Common 08:00:00 08:00:[address] Sp[address] [facility] 2019-11-09 2019-11-09 [facility] [id number] Common 08:00:00 08:00:[address] Sp[address] [facility] 2019-09-14 2019-09-14 [facility] [id number] Common 16:00:00 16:00:[address] Sp[address] Family - [facility] Family [facility] Results Test Description Test Time Test Comments Results Result Comments Source ANTI-MITOCHONDRIAL AB, REFLEX TO TITER 2019-07-06 08:05:00 Test Item Value Reference Range Interpretation Comme nts SCAN RESULT (test code = 4501617) BLOOD [id number] 07:01:00 Test Item Value Reference Range Interpretation Comments CULTURE (BEAKER) (test No growth in 5 days code = 1095) BLOOD [id number] 07:01:00 Test Item Value Reference Range Interpretation Comments CULTURE (BEAKER) (test No growth in 5 days code = 1095) POCT-GLUCOSE [id number] 12:22:00 Test Item Value Reference Range Interpretation Comments POC-GLUCOSE METER 205 mg/dL 70-110 H : TESTED A T [facility] 6720 (BEAKER) (test code = [facility] Juliana [facility], 1538) [id number]: Principal Research Economist/Techni radha ID = [id number] for Or phey, Janette ALPHA FETOPROTEIN (AFP), TUMOR [id number] 08:57:00 Test Item Value Reference Range Interpretation Comments ALPHA-FETOPROTEIN (BEAKER) (test 3.0 ng/mL <10.0 code = 1094) POCT-GLUCOSE [id number] 08:26:00 Test Item Value Reference Range Interpretation Comments POC-GLUCOSE METER 123 mg/dL 70-110 H : TESTED A T [facility] 6720 (BEAKER) (test code = [facility] Owned it [facility], 1538) [id number]: Principal Research Economist/Techni radha ID = [id number] for Or phey, Janette BASIC METABOLIC [id number] 08:19:00 Test Item Value Reference Range Interpretation [...] PATIEN TS. CBC W/PLT COUNT & AUTO [id number] 06:59:00 Test Item Value Reference Range Interpretation [...] PERCENT (BEAKER) (test code = 2801) POCT-GLUCOSE [id number] 22:23:00 Test Item Value Reference Range Interpretation Comments POC-GLUCOSE METER 187 mg/dL 70-110 H : TESTED A T [facility] 6720 (BEAKER) (test code = [facility], 1538) [id number]: Principal Research Economist/Techni radha ID = [id number] for Ketan Verdin MR, ABDOMEN, [id number] 18:17:00FINAL REPORT INDICATION:Cirrhosis and questionable (isoechoic) liver [...] There are tiny lower esophageal varices and small omental varices. The spleen is enlarged measuring 16 cm coronal long axis. There is a tiny amount of perihepatic fluid. Several tiny stones in the gallbladder are noted. There is no inflammatory change around the gallbladder and there is no biliary ductal dilatation. Pancreas, adrenal glands, kidneys, an d visualized bowel loops are unremarkable. There are bilateral tiny pleural effusions. No suspiciousmarrow replacing lesion is demonstrated. IMPRESSION:Cirrhosis without evidence of hepatocellular carcinoma. Signed: Wilton Madrigal MDReport Verified Date/Time: 07/02/2019 18:17:28 Reading Location: [address] Body Reading Room ANTI-NUCLEAR ANTIBODY (ENRIQUE) [...] (BEAKER) (test code = 2585) HEPATITIS C [id number] 08:38:00 Test Item Value Reference Range Interpretation Comments HEPATITIS C ANTIBODY (BEAKER) Nonreactive Nonreactive (test code = 367) POCT-GLUCOSE [id number] 08:31:00 Test Item Value Reference Range Interpretation Comments POC-GLUCOSE METER 136 mg/dL 70-110 H : TESTED A T [facility] 6720 (BEAKER) (test code = [facility], 1538) [id number]: Principal Research Economist/Techni radha ID = [id number] for [facility]AR CAMPOS IMMUNOGLOBULIN G (IGG)2019-07-02 08:16:00 Test Item Value Reference Range Interpretation Comments IMMUNOGLOBULIN G (IGG) (BEAKER) 1200 mg/dL 540-1,822 (test code = 427) [id number] 05:52:00 Test Item Value Reference Range Interpretation [...] (test code = 2590) TSH/FREE T4 IF [id number] 04:38:00 Test Item Value Reference Range Interpretation Comments THYROID STIMULATING HORMONE 0.46 uIU/mL 0.35-4.94 (BEAKER) (test code = 772) BASIC METABOLIC [id number] 04:06:00 Test Item Value Reference Range Interpretation [...] S NOT APPLICABLE FOR DIALYSIS PATIEN TS. [id number] 04:04:00 Test Item Value Reference Range Interpretation Comments ALPHA-1 ANTITRYPSIN (BEAKER) 139.90 mg/dL 90.00-200.00 (test code = 502) PROTHROMBIN [id number] 04:02:00 Test Item Value Reference Range Interpretation Comments PROTIME (BEAKER) (test code = 16.0 seconds 11.9-14.2 H 759) INR (BEAKER) (test code = 370) 1.4 <=5.9 Effective 01/14/2019: PT Reference Range ChangeNew: 11.9-14.2 Previous: 11.7- 14.7RECOMMENDED COUMADIN/WARFARIN INR THERAPY RANGESSTANDARD DOSE: 2.0-3.0 Includes: PROPHYLAXIS for venous thrombosis, systemic embolization; TREATMENT for venous thrombosis and/or pulmonary embolus.HIGH RISK: Target INR is 2.5-3.5 for patients wiht mechanical heart valves.PROTHROMBIN [id number] 04:02:00 Test Item Value Reference Range Interpretation Comments PROTIME (BEAKER) (test code = 16.1 seconds 11.9-14.2 H 759) INR (BEAKER) (test code = 370) 1.4 <=5.9 Effective 01/14/2019: PT Reference Range ChangeNew: 11.9-14.2 Previous: 11.7- 14.7RECOMMENDED COUMADIN/WARFARIN INR THERAPY RANGESSTANDARD DOSE: 2.0-3.0 Includes: PROPHYLAXIS for venous thrombosis, systemic embolization; TREATMENT for venous thrombosis and/or pulmonary embolus.HIGH RISK: Target INR is 2.5-3.5 for patients wiht mechanical heart valves.CBC W/PLT COUNT & AUTO [id number] 03:48:00 Test Item Value Reference Range Interpretation [...] (BEAKER) (test code = 2801) U/S, ABDOMINAL, [id number] 00:38:00Reason for exam:->suspected cirrhosisFINAL REPORT INDICATION: suspected [...] Not well-seen secondary to poor acoustic windowing. Body and tail: Not well-seen. Spleen: Size: 16.1cm. Echogenicity: [...] evidence of acute cholecystitis. Signed: Maria Elena Zepedaeport Verified Date/Time: 07/02/2019 00:38:18 POCT-GLUCOSE [id number] 21:58:00 Test Item Value Reference Range Interpretation Comments POC-GLUCOSE METER 188 mg/dL 70-110 H : TESTED A T [facility] 6720 ([facility]) (test code = [facility], 1538) [id number]: Principal Research Economist/Techni radha ID = [id number] for DEBO ALLISON POCT-GLUCOSE [id number] 17:35:00 Test Item Value Reference Range Interpretation Comments POC-GLUCOSE METER 200 mg/dL 70-110 H : [facility] (test code = TESTED AT [facility] 6720 1538) [facility], [id number]: Principal Research Economist/Techni radha ID = [id number] for [facility] HEPATIC FUNCTION [id number] 14:20:00 Test Item Value Reference Range Interpretation [...] 6-55 347) CBC W/PLT COUNT & AUTO [id number] 14:01:00 Test Item Value Reference Range Interpretation [...] PERCENT (BEAKER) (test code = 2801) POCT-GLUCOSE [id number] 13:05:00 Test Item Value Reference Range Interpretation Comments POC-GLUCOSE METER 152 mg/dL 70-110 H : TESTED A T [facility] 6720 (BEAKER) (test code = KEMAL [place], 1538) [id number]: Principal Research Economist/Techni radha ID = [id number] for [facility] CAMPOS BASIC METABOLIC [id number] 10:18:00 Test Item Value Reference Range Interpretation [...] APPLICABLE FOR DIALYSIS PATIEN TS. HEPATIC FUNCTION [id number] 10:15:00 Test Item Value Reference Range Interpretation [...] code = 27 U/L 6-55 347) PROTHROMBIN [id number] 07:18:00 Test Item Value Reference Range Interpretation Comments PROTIME (BEAKER) (test code = 16.3 seconds 11.9-14.2 H 759) INR (BEAKER) (test code = 370) 1.4 <=5.9 Effective 01/14/2019: PT Reference Range ChangeNew: 11.9-14.2 Previous: 11.7- 14.7RECOMMENDED COUMADIN/WARFARIN INR THERAPY RANGESSTANDARD DOSE: 2.0-3.0 Includes: PROPHYLAXIS for venous thrombosis, systemic embolization; TREATMENT for venous thrombosis and/or pulmonary embolus.HIGH RISK: Target INR is 2.5-3.5 for patients wiht mechanical heart valves.CBC W/PLT COUNT & AUTO [id number] 07:06:00 Test Item Value Reference Range Interpretation [...] code = 2801) URINALYSIS W/ REFLEX URINE [id number] 01:38:00 Test Item Value Reference Range Interpretation [...] /HPF SOURCE(BEAKER) (test code = 2795) POCT-GLUCOSE [id number] 21:13:00 Test Item Value Reference Range Interpretation Comments POC-GLUCOSE METER 117 mg/dL 70-110 H : TESTED A T [facility] 6720 (BEAKER) (test code = [place], 1538) [address]: Principal Research Economist/Techni radha ID = [id number] for DI XOLIVIAEDGAR CBC W/PLT COUNT & AUTO [id number] 20:49:00 Test Item Value Reference Range Interpretation [...] PERCENT (BEAKER) (test code = 2801) POCT-GLUCOSE [id number] 14:13:00 Test Item Value Reference Range Interpretation Comments POC-GLUCOSE METER 171 mg/dL 70-110 H : TESTED A T [facility] 6720 (BEAKER) (test code = [place], 1538) [id number]: Principal Research Economist/Techni radha ID = [id number] for Or Janette du CBC W/PLT COUNT & AUTO [id number] 12:20:00 Test Item Value Reference Range Interpretation [...] PERCENT (BEAKER) (test code = 2801) HEMOGLOBIN [id number] 08:15:00 Test Item Value Reference Range Interpretation Comments HEMOGLOBIN A1C (BEAKER) (test code = 7.0 % 4.3-6.1 H 368) POCT-GLUCOSE [id number] 07:09:00 Test Item Value Reference Range Interpretation Comments POC-GLUCOSE METER 193 mg/dL 70-110 H : TESTED A T [facility] 6720 (BEAKER) (test code = [place], 1538) [id number]: Principal Research Economist/Techni radha ID = [id number] for Or Janette du CBC W/PLT COUNT & AUTO [id number] 05:52:00 Test Item Value Reference Range Interpretation [...] (BEAKER) (test code = 2801) BASIC METABOLIC [id number] 05:32:00 Test Item Value Reference Range Interpretation [...] APPLICABLE FOR DIALYSIS PATIEN TS. HEPATIC FUNCTION [id number] 05:26:00 Test Item Value Reference Range Interpretation [...] code = 23 U/L 6-55 347) PROTHROMBIN [id number] 05:25:00 Test Item Value Reference Range Interpretation Comments PROTIME (BEAKER) (test code = 16.1 seconds 11.9-14.2 H 759) INR (BEAKER) (test code = 370) 1.4 <=5.9 Effective 01/14/2019: PT Reference Range ChangeNew: 11.9-14.2 Previous: 11.7- 14.7RECOMMENDED COUMADIN/WARFARIN INR THERAPY RANGESSTANDARD DOSE: 2.0-3.0 Includes: PROPHYLAXIS for venous thrombosis, systemic embolization; TREATMENT for venous thrombosis and/or pulmonary embolus.HIGH RISK: Target INR is 2.5-3.5 for patients wiht mechanical heart valves.
[2022-07-22 21:04] LABS: Absolute Lymphocytes (CBC) 0.4 K/uL (0.7-4.9); Hematocrit 16.5 % (39.6-49.0); Lymphocytes % 13.9 % (15.3-44.8); MPV 8.3 fL (7.6-11.3); RBC Red Blood Cell Count 2.46 M/uL (4.33-5.43)
[2022-07-22 21:09] LABS: Blood Morphology Comment NOTED (NOT SEEN); Platelet Estimate DECR; White Blood Cell Scan OK (OK)
[2022-07-22 21:10] LABS: Anisocytosis 1+; Hypochromasia 2+
[2022-07-22 21:12] LABS: Protime INR 1.43
[2022-07-22 21:23] LABS: Albumin 2.9 g/dL (3.4-5.0); Bilirubin Total 0.7 mg/dL (0.2-1.0); Potassium 3.7 mmol/L (3.5-5.1); Protein, Total 6.1 g/dL (6.4-8.2)
[2022-07-22] MEDS ORDERED: PANTOPRAZOLE 40 MG INJ ONE (21:23)
[2022-07-22] MEDS ORDERED: ONDANSETRON 4 MG/2 ML VIAL ONE (21:23)
[2022-07-22] MEDS ORDERED: NA CHLORIDE 0.9% 50 ML IV ONE (21:24)
[2022-07-22] MEDS ORDERED: NA CHLORIDE 0.9% 1,000 ML ONE (21:41)
[2022-07-22 22:04] LABS: SARS-CoV-2 Antigen Rapid Res Negative (Negative)
--- NOTE | 2022-07-22 22:11 | ER ---
Nurse's Notes [facility] Name: Isma Marion Age: 46 yrs Sex: Male : 1975 Arrival Date: 07/22/2022 Time: 20:26 Bed 26 Private MD: Diagnosis: Hematemesis;Acute posthemorrhagic anemia Presentation: 07/22 20:38 Chief complaint: EMS states: he went to the bathroom to vomit and he noticed it was a ha1 lot of bright red blood in the toilet. after vomiting he loss consciousness. his reports he did not hit the ground. Coronavirus screen:. Ebola Screen: No symptoms or risks identified at this time. Initial Sepsis Screen: Does the patient meet any 2 criteria? No. Patient's initial sepsis screen is negative. Does the patient have a suspected source of infection? No. Patient's initial sepsis screen is negative. Risk Assessment: Do you want to hurt yourself or someone else? Patient reports no desire to harm self or others. Onset of symptoms was July 22, 2022. 20:38 Method Of Arrival: EMS: [facility] ha1 20:38 Acuity: MEGHANN 3 ha1 Triage Assessment: 20:25 General: Appears comfortable, Behavior is calm, cooperative. Pain: Denies pain. EENT: ha1 No deficits noted. No signs and/or symptoms were reported regarding the EENT system. Neuro: Level of Consciousness is awake, alert, obeys commands, Oriented to person, place, time, situation. Cardiovascular: Capillary refill < 3 seconds Patient's skin is warm and dry. Respiratory: Airway is patent Trachea midline Respiratory effort is even, unlabored, Respiratory pattern is regular, symmetrical. GI: Abdomen is round distended, Bowel sounds present X 4 quads. Reports vomiting blood. : No signs and/or symptoms were reported regarding the genitourinary system. Derm: Skin is Skin is pink, warm \\T\\ dry. Musculoskeletal: Circulation, motion, and sensation intact. Historical: - Allergies: 20:46 No Known Allergies; ha1 - Home Meds: 20:46 Metformin Oral [Active]; ha1 - PMHx: 20:46 Diabetes - NIDDM; ha1 - Immunization history:: Adult Immunizations up to date. - Family history:: not pertinent. - Social history:: Smoking status: unknown. Screenin:52 Abuse screen: Denies threats or abuse. Denies injuries from another. Nutritional ha1 screening: No deficits noted. Tuberculosis screening: No symptoms or risk factors identified. Fall Risk IV access (20 points). Gait- Weak (10 pts.). Total Abbasi Fall Scale indicates Low Risk Score (25-44 pts). Fall prevention measures have been instituted. Side Rails Up X 2 Placed close to Nursing Station Frequent Obs/Assesments occuring Family Present and informed to notify staff if they need to leave bedside As available Patient and Family Educated on Fall Prevention Program and strategies. Assessment: 20:25 General: see triage. . ha1 20:55 Reassessment: Patient and/or family updated on plan of care and expected duration. Pain ha1 level reassessed. Patient is alert, oriented x 3, equal unlabored respirations, skin warm/dry/pink. starting blood transfusion. see floating sheet. 23:20 Reassessment: Patient and/or family updated on plan of care and expected duration. Pain ha1 level reassessed. Patient is alert, oriented x 3, equal unlabored respirations, skin warm/dry/pink. denies itching. first unit of blood transfusion completed Patient denies pain at this time. 07/23 00:00 Reassessment: Patient and/or family updated on plan of care and expected duration. Pain ha1 level reassessed. Patient is alert, oriented x 3, equal unlabored respirations, skin warm/dry/pink. starting transfusion of the second unit of blood. at the bedside Patient denies pain at this time. 01:00 Reassessment: Patient and/or family updated on plan of care and expected duration. Pain ha1 level reassessed. Patient is alert, oriented x 3, equal unlabored respirations, skin warm/dry/pink. talking to his Patient denies pain at this time. 01:30 Reassessment: Patient and/or family updated on plan of care and expected duration. Pain ha1 level reassessed. Patient is alert, oriented x 3, equal unlabored respirations, skin warm/dry/pink. denies itching or SOB. being transported by [facility] [place] Patient denies pain at this time. Vital Signs: 07/22 20:26 BP 104 / 59; Pulse 97; Resp 20 S; Pulse Ox 95% on R/A; ha1 20:38 BP 104 / 59; Pulse 97; Resp 20 S; Temp 98.3; Pulse Ox 95% ; Weight 88.45 kg; Height 5 ha1 ft. 6 in. (167.64 cm); 21:55 BP 116 / 68; Pulse 98; Resp 18 S; Temp 98.3; Pulse Ox 99% on R/A; ha1 22:00 BP 112 / 64; Pulse 97; Resp 18 S; Temp 98.4; Pulse Ox 99% on R/A; ha1 23:20 BP 114 / 60; Pulse 96; Resp 18 S; Temp 98.4; Pulse Ox 98% on R/A; Pain 0/10; ha1 12 00:00 BP 110 / 60; Pulse 101; Resp 19; Temp 98.1; Pulse Ox 99% on R/A; ha1 00:05 BP 106 / 71; Pulse 98; Resp 20 S; Temp 98.2(O); Pulse Ox 98% on R/A; ha1 00:10 BP 113 / 63; Pulse 99; Resp 18 S; Temp 98.4(O); Pulse Ox 98% ; ha1 00:15 BP 114 / 63; Pulse 97; Resp 20 S; Temp 98.4(O); Pulse Ox 98% on R/A; ha1 00:30 BP 108 / 63; Pulse 97; Resp 18 S; Temp 98.4(O); Pulse Ox 97% on R/A; ha1 07/22 20:38 Body Mass Index 31.47 (88.45 kg, 167.64 cm) [facility] ED Course: 07/22 20:25 Patient has correct armband on for positive identification. Placed in gown. Bed in low ha1 position. Call light in reach. Side rails up X 1. Adult w/ patient. 20:26 Patient arrived in ED. bb 20:26 Pablo Stephenson MD is Attending Physician. rt 20:38 Jayleen Manzanares, GREGG is Primary Nurse. ha1 20:46 Triage completed. ha1 21:19 attempted to initiate a transfer with [facility] [place] phone hung up at 21:21. mw2 21:21 attempted to initiate a transfer with [facility] phone hung up at 21:22. mw2 21:22 initiated a transfer with Liam from [facility]. mw2 21:[address] Stephenson with the Doctor from [facility]. mw2 22:15 Inserted saline lock: 20 gauge in left antecubital area, using aseptic technique. oe 22:30 Liam from [facility] called he said " the patient will get a bed we 2 just have to wait for it to be clean.". 23:29 administrative approval given by Liam Chatterjee/ patient has been accepted to [address] [place] [address] 13/ Dr. Sheets accepted the patient in transfer/report to be called to [phone]. 07/23 00:00 Arm band placed on right wrist. ha1 01:45 No provider procedures requiring assistance completed. IV discontinued, intact, ha1 bleeding controlled, No redness/swelling at site. Pressure dressing applied. Administered Medications: 07/22 21:33 Drug: ProTONIX (pantoprazole) 80 mg Route: IVP; Site: right antecubital; bb 21:33 Drug: Zofran (Ondansetron) 4 mg Route: IVP; Site: right antecubital; bb 07/23 00:35 Drug: Ativan (LORazepam) 1 mg Route: IVP; Site: left antecubital; ha1 01:00 Follow up: Response: No adverse reaction; RASS: Alert and Calm (0) ha1 Medication: 01:46 VIS not applicable for this client. ha1 Outcome: 07/22 22:10 ER care complete, transfer ordered by . rt 07/23 01:45 Transferred by ground EMS to [facility]. ha1 Condition: stable Discharge instructions given to patient, family, Instructed on the need for transfer, Demonstrated understanding of instructions. 01:47 Patient left the ED. ha1 Signatures: Nica Fletcher RN RN bb Panchito Gordon MyKena mw2 Jayleen Manzanares, GREGG RN ha1 Pablo Stephenson MD MD rt
--- NOTE | 2022-07-22 22:11 | EDPHYS ---
Physician Documentation [facility] Name: Isma Marion Age: 46 yrs Sex: Male : 1975 Arrival Date: 07/22/2022 Time: 20:26 Bed 26 Private MD: ED Physician Pablo Stephenson HPI: 07/22 20:38 This 46 yrs old Male presents to ER via Unassigned with complaints of rt Hematemesis. 20:38 The patient presents to the emergency department vomiting blood. Onset: The rt symptoms/episode began/occurred today. Abdominal pain: none is appreciated. Modifying factors: The symptoms are alleviated by nothing, the symptoms are aggravated by nothing. Associated signs and symptoms: The patient has no apparent associated signs or symptoms. Patient presents to the ED with nausea vomiting starting today. The patient had 3 episodes of vomiting today which the girlfriend states has been straight bloody. He states that his stools have been darker. He states that this happened to him about a year and a half ago, had a scope that revealed a bleeding vein requiring banding. He had reportedly to episodes of syncope prior to arrival. Denies other acute complaints at this time, symptoms are moderate in severity, no other aggravating alleviating factors.. Historical: - Allergies: 20:46 No Known Allergies; ha1 - Home Meds: 20:46 Metformin Oral [Active]; ha1 - PMHx: 20:46 Diabetes - NIDDM; ha1 - Immunization history:: Adult Immunizations up to date. - Family history:: not pertinent. - Social history:: Smoking status: unknown. ROS: 20:39 Constitutional: Negative for fever, chills, and weight loss, Eyes: Negative for injury, rt pain, redness, and discharge, ENT: Negative for injury, pain, and discharge, Respiratory: Negative for shortness of breath, cough, wheezing, and pleuritic chest pain, : Negative for injury, bleeding, discharge, and swelling, MS/Extremity: Negative for injury and deformity, Skin: Negative for injury, rash, and discoloration, Neuro: Negative for headache, weakness, numbness, tingling, and seizure, Psych: Negative for depression, anxiety, suicide ideation, homicidal ideation, and hallucinations. 20:39 Cardiovascular: Positive for syncope, Negative for chest pain. 20:39 Abdomen/GI: Positive for nausea and vomiting, hematemesis. Exam: 20:39 Constitutional: This is a well developed, well nourished patient who is awake, alert, rt and in no acute distress. Head/Face: Normocephalic, atraumatic. Eyes: Pupils equal round and reactive to light, extra-ocular motions intact. Lids and lashes normal. Conjunctiva and sclera are non-icteric and not injected. Cornea within normal limits. Periorbital areas with no swelling, redness, or edema. ENT: Nares patent. No nasal discharge, no septal abnormalities noted. Tympanic membranes are normal and external auditory canals are clear. Oropharynx with no redness, swelling, or masses, exudates, or evidence of obstruction, uvula midline. Mucous membranes moist. Chest/axilla: Normal chest wall appearance and motion. Nontender with no deformity. No lesions are appreciated. Cardiovascular: Regular rate and rhythm with a normal S1 and S2. No gallops, murmurs, or rubs. Normal PMI, no JVD. No pulse deficits. Respiratory: Lungs have equal breath sounds bilaterally, clear to auscultation and percussion. No rales, rhonchi or wheezes noted. No increased work of breathing, no retractions or nasal flaring. Abdomen/GI: Soft, non-tender, with normal bowel sounds. No distension or tympany. No guarding or rebound. No evidence of tenderness throughout. Skin: Warm, dry with normal turgor. Normal color with no rashes, no lesions, and no evidence of cellulitis. MS/ Extremity: Pulses equal, no cyanosis. Neurovascular intact. Full, normal range of motion. Neuro: Awake and alert, GCS 15, oriented to person, place, time, and situation. Cranial nerves II-XII grossly intact. Motor strength 5/5 in all extremities. Sensory grossly intact. Cerebellar exam normal. Normal gait. Psych: Awake, alert, with orientation to person, place and time. Behavior, mood, and affect are within normal limits. 22:08 ECG was reviewed by the Attending Physician. rt Vital Signs: 20:26 BP 104 / 59; Pulse 97; Resp 20 S; Pulse Ox 95% on R/A; ha1 20:38 BP 104 / 59; Pulse 97; Resp 20 S; Temp 98.3; Pulse Ox 95% ; Weight 88.45 kg; Height 5 ha1 ft. 6 in. (167.64 cm); 21:55 BP 116 / 68; Pulse 98; Resp 18 S; Temp 98.3; Pulse Ox 99% on R/A; ha1 22:00 BP 112 / 64; Pulse 97; Resp 18 S; Temp 98.4; Pulse Ox 99% on R/A; ha1 23:20 BP 114 / 60; Pulse 96; Resp 18 S; Temp 98.4; Pulse Ox 98% on R/A; Pain 0/10; ha1 12 00:00 BP 110 / 60; Pulse 101; Resp 19; Temp 98.1; Pulse Ox 99% on R/A; ha1 00:05 BP 106 / 71; Pulse 98; Resp 20 S; Temp 98.2(O); Pulse Ox 98% on R/A; ha1 00:10 BP 113 / 63; Pulse 99; Resp 18 S; Temp 98.4(O); Pulse Ox 98% ; ha1 00:15 BP 114 / 63; Pulse 97; Resp 20 S; Temp 98.4(O); Pulse Ox 98% on R/A; ha1 00:30 BP 108 / 63; Pulse 97; Resp 18 S; Temp 98.4(O); Pulse Ox 97% on R/A; 1 07/22 20:38 Body Mass Index 31.47 (88.45 kg, 167.64 cm) [facility] MDM: 07/22 20:27 Patient medically screened. rt 22:10 Differential diagnosis: gastritis, hemorrhagic shock, varices. Data reviewed: vital rt signs, nurses notes, lab test result(s), EKG, radiologic studies. ED course: Patient presents to the ED with reported melena, hematemesis. He has been having acute blood loss anemia. Patient has had episodes of syncope secondary to this anemia. Will emergently transfuse patient. Received as well as platelets due to thrombocytopenia. Dorsal work-up is benign. Patient with transfer prior level of care due to unavailability of gastroenterology at this time.. 07/22 20:36 Order name: CBC with Diff; Complete Time: 21:13 rt 07/22 20:36 Order name: CMP; Complete Time: 21:54 rt 07/22 20:36 Order name: Type And Screen rt 07/22 20:36 Order name: Lipase; Complete Time: 21:54 rt 07/22 20:36 Order name: PT-INR; Complete Time: 21:13 rt 07/22 20:36 Order name: Ptt, Activated; Complete Time: 21:13 rt 07/22 20:39 Order name: Troponin High Sensitivity rt 07/22 21:10 Order name: CBC Smear Scan; Complete Time: 21:13 EDMS 07/22 21:29 Order name: Packed RBC Leukored EDMS 07/22 21:31 Order name: Platelets, Leukored Pheresis EDMS 07/22 21:32 Order name: SARS RAPID ha1 07/22 20:39 Order name: EKG; Complete Time: 20:40 rt 07/22 20:39 Order name: EKG - Nurse/Tech; Complete Time: 22:12 rt EC:08 Rate is 97 beats/min. Rhythm is regular, Normal Sinus Rhythm with No ectopy. QRS [place] rt is Normal. NV interval is normal. QRS interval is normal. QT interval is normal. No Q waves. T waves are Normal. No ST changes noted. Clinical impression: Normal ECG. Interpreted by me. Administered Medications: 21:33 Drug: ProTONIX (pantoprazole) 80 mg Route: IVP; Site: right antecubital; bb 21:33 Drug: Zofran (Ondansetron) 4 mg Route: IVP; Site: right antecubital; bb 07/23 00:35 Drug: Ativan (LORazepam) 1 mg Route: IVP; Site: left antecubital; ha1 01:00 Follow up: Response: No adverse reaction; RASS: Alert and Calm (0) ha1 Disposition Summary: 07/22/22 22:10 Transfer Ordered Transfer Location: Other Acute Care Facility rt Reason: Higher level of care rt Condition: Serious rt Problem: an acute exacerbation rt Symptoms: are unchanged rt Accepting Physician: Kortney(07/23/22 01:47) ha1 Diagnosis - Hematemesis rt - Acute posthemorrhagic anemia rt Forms: - Medication Reconciliation Form rt - SBAR form rt Critical care time excluding procedures: 07/22 22:10 Critical care time: Bedside Care: 30 minutes, Consultation: 5 minutes. Total time: 35 rt minutes Signatures: Dispatcher [employer] Nica Duran RN RN bb Ayala, Heidy, RN RN ha1 Pablo Stephenson MD MD rt Corrections: (The following items were deleted from the chart) 22: 21:20 SARS-COV-2 RT PCR+[id number].[id number] ordered. EDMS EDMS 07/23 01:47 12 22:10 Kortney rt ha1
[2022-07-23] MEDS ORDERED: LORazepam 2 MG/ML VIAL ONE (00:37)
[2022-07-23] MEDS ORDERED: NA CHLORIDE 0.9% 500 ML ONE (00:46)
[2022-07-23 02:51] VITALS: TEMP 98.4
[2022-07-23 02:53] VITALS: BP 108/63; O2SAT 97
--- NOTE | 2022-07-23 13:45 | EKG ---
Test Date: 2022-07-22 Test Time: 21:40:08 Pattern Stamper: FREDDIE MEASUREMENT RESULTS: Intervals: Rate: 97 FL: 130 QRSD: 82 QT: 368 QTc: 467 [place]: P: 53 FL: 130 QRS: 6 T: 5 INTERPRETIVE STATEMENTS: Normal sinus rhythm Normal ECG Compared to ECG 06/29/2019 19:57:46 No significant changes Electronically Signed On 07-23-22 13:44:02 DRUPAL PROGRAMMER by [place] العلي
== END 2022-07-23 01:47 ==
LOC: ER 19:57
PROC: 30233R1 Transfusion of Nonautologous Platelets into Peripheral Vein, Percutaneous Approach (ICD-10-PCS; principal; 2022-07-23)
PROC: 30233N1 Transfusion of Nonautologous Red Blood Cells into Peripheral Vein, Percutaneous Approach (ICD-10-PCS; 2022-07-23)
DX: D62 Acute posthemorrhagic anemia (principal); E11.9 Type 2 diabetes mellitus without complications
CPT/HCPCS: 36415; 80053; 83690; 84484; 85025; 85610; 85730; 86850; 86900; 86901; 87811; 93005; 99285; C9113; J2405; J7040; P9016; P9035; P9100

== ENCOUNTER 2023-07-24 00:02 | Emergency (ER) | payer SELFPAY ==
--- OUTSIDE RECORDS SUMMARY | 2023-07-24 00:11 | XMS REPORT | Continuity of Care Document ---
:[address] [facility] t Address [address] [place] [address] Care Team Providers Name Role Phone No, Pcp [facility] Primary Care Physician Unavailable Dafne Akins Attending Clinician Unavailable Macario Sheets MD Attending Clinician Junaito Cosby DO Attending Clinician Autumn Prado DO Attending Clinician AUTUMN PRADO Attending Clinician Unavailable Sheldon Rose MD Attending Clinician Darren Cardenas CRNA Attending Clinician Chapin Rivas MD Attending Clinician MACARIO SHEETS Attending Clinician Unavailable CHELY AGUILERA Attending Clinician Unavailable MACARIO SHEETS Admitting Clinician Unavailable JENNIFFER AL Admitting Clinician Unavailable Problems Condition Condition Condition Status Onset Resolution Last Treating Co mments Source Name Details Category Date Date Treatment Clinician Date 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 nce 09-25 [facility] of liver of liver 00:00: Medica l without without 00 Center ascites ascites Alcohol Alcohol Disease Recurre 2021-[address] dependence dependence nce 09-25 Griselda kes with other with other 00:00: Me dical alcohol-in alcohol-in 00 Ce nter duced duced disorder disorder Type 2 Type 2 Disease Recurre 2021-[address] [facility] diabetes diabetes nce 2 [facility] mellitus mellitus 00:00: Medica l with with 00 Center hyperglyce hyperglyce cha cha Thrombocyt Thrombocyt Disease Recurre 2021-[address] openia openia nce 09-25 [facility] 00:[facility]: Medical 00 Center Hematemesi Hematemesi Disease Active 2021-[address] s with s with 09-25kes nausea nausea 00:00: Medical 00 Center Melena Melena Disease Active 2021-[address] 09-25 [facility] 00[facility] Medical 00 Center Obesity Obesity Disease Active 2021-[address] (BMI (BMI 09-25 [facility] 30-39.9) 30-39.9) 00:00: Medica l 00 Center Blood loss Blood loss Disease Active 2021-[address] anemia anemia 09-25 [facility] 00[facility] Medical 00 Center Transfusio Transfusio Disease Active 2021-[address] n history n history 09-25 [facility] 00:00: Medical 00 Center GIB GIB Disease Active 2018-[address] [facility] [address] (gastroint (gastroint 08-30 [facility] estinal estinal 00:00: Medical bleeding) bleeding) 00 Cent er [id number] Thrombocyt Problem Active Co mmon openia [facility] [id number] Controlled Problem Active Co mmon type 2 Spirit diabetes - [facility] mellitus [facility] complicati Medica l on, Center without long-term current use of insulin [id number] Other iron Problem Active Com mon deficiency Spirit anemia - [facility] [id number] Secondary Problem Active Comm on esophageal Spirit varices - [facility] with [facility] [id number] Leukopenia Problem Active Com mon , Spirit unspecifie - [facility] d type [facility] Allergies, Adverse Reactions, Alerts Allergy Allergy Status Severity Reaction(s) Onset Inactive Treating Comm ents Source Name Type Date Date Clinician NO KNOWN Allergy Active [facility] ALLERGIE S Family History Family Member Diagnosis Comments Start Date Stop Date Source Natural brother Diabetes [facility] Natural father Diabetes [facility] Natural father Heart disease [facility] Natural mother Diabetes [facility] Natural sister Diabetes [facility] Social History Social Habit Start Date Stop Date Quantity Comments Source Sexual orientation 2022-07-[address] [facility] 03:46:29 (finding) Medical Center History SDOH [facility] Alcohol Frequency Medical Center History SDOH [facility] Alcohol Std Drinks Medica l Center History SDOH [facility] Alcohol Binge Medical Danie ter History of tobacco Smokes tobacco [facility] use daily Medical Center History of Social 2022-07-24 2022-07-[address] [facility] function 00:00:00 00:00:00 Medical Center Alcohol intake 2022-07-24 2022-07-24 Current drinker of [facility] 00:00:00 00:00:00 alcohol (finding) Medical Center Tobacco use and 2022-07-23 2022-07-23 Smokeless tobacco [facility] exposure 00:00:00 00:00:00 non-user [facility] Cigarettes smoked 2019-06-30 2019-06-[address] [facility] current (pack per 00:00:00 00:00:00 Medical Center day) - Reported Alcohol Comment 2019-06-30 2019-06-30 Last drink 06/[address] [facility] 00:00:00 00:00:00 [facility] Sex Assigned At [address] [facility]da kes 00:00:00 00:00:00 [facility] Smoking Status Start Date Stop Date Source Smokes tobacco daily 2022-07-23 00:00:00 [facility] Never Smoker [facility] Medications Ordered Filled Start Stop Current Ordering Indication Dosage Frequency Signature Comments Components Source Medication Medication Date Date Medication? Clinician (SIG) Name Name metFORMIN 2021-08 Yes 1000mg Take 1,[address] [facility] (GLUCOPHAGE 2-08 mg by [facility]ukes ) 1000 MG 17:50: mouth Medical tablet 53 daily with Center breakfast. metFORMIN 2021-08 Yes 500mg QD Take [address] (GLUCOPHAGE 2-08 mg by [facility]ukes ) 500 MG 17:50: mouth Medical tablet 53 every Center evening. folic acid 2021-08 No 1mg QD Take [address] (FOLVITE) 1 2-07 tablet (1 Griselda kes MG tablet 00:00: 23:59 mg total) Me dical 00 :00 by mouth Center daily for 30 days. thiamine 2021-08 No 100mg QD Take 1 [facility] t 100 MG 2-08 01-07 tablet [facility]ukes tablet 00:00: 23:59 (100 mg Medical 00 :00 total) by Center mouth daily for 30 days. ciprofloxac 2021-08 No 500mg QD Take [address] in HCl 09-26 tablet [facility]ukes (CIPRO) 500 00:00: 23:59 (500 mg Me dical MG tablet 00 :00 total) by Cente r mouth daily for 30 days. ferrous 2021-08 No 325mg Take [address] sulfate 325 09-26 tablet [facility]ukes (65 FE) MG 00:00: 23:59 (325 mg Med ical EC tablet 00 :00 total) by Cente r mouth 3 (three) times daily with meals for 30 days. Triamcinolo Triamcinolo Yes Na Akins 1 Common ne ne 02-11 applicatio Spirit Acetonide Acetonide 00:00: n to - C HI 00 affected [facility] Mupirocin Mupirocin 2019- No Na Akins 1 Common 02-11 07- applicatio Spirit 00:00: 00:00 n to - CHI 00 :00 affected [facility] metFORMIN 2018-08 Yes 1000mg Take 1,[address] (GLUCOPHAGE 1-15 mg by Lukes ) 1000 MG 17:19: mouth Medical tablet 27 daily with Center breakfast. metFORMIN 2018-08 Yes 500mg QD Take [address] (GLUCOPHAGE 1-15 mg by Lukes ) 500 MG 17:19: mouth Medical tablet 27 every Center evening. Protonix Protonix Yes Na Akins 1 tablet Common [facility] Propranolol Propranolol Yes Na Akins 1 tablet Common HCl HCl on an Spirit empty - CHI stomach [facility] Glimepiride Glimepiride Yes Na Akins 1 tablet Common [facility] One Touch One Touch Yes Na Akins one strip Common test strips test strips S pirit CHI [facility] One Touch One Touch Yes Na Akins one strip Common Verio Verio Spirit [facility] Metformin Metformin Yes Na Akisn 1 tablet Common HCl HCl with a Spirit meal [facility] One Touch One Touch No One Touch [...] Name Observation Time Observation Value Comments Source HEIGHT 2022-07-24 11:38:00 167.6 cm WEIGHT 2022-07-23 04:00:00 89.994 kg HEIGHT 2022-07-24 11:38:00 167.6 cm WEIGHT 2022-07-23 04:00:00 89.994 kg HEIGHT 2022-07-24 11:38:00 167.6 cm WEIGHT 2022-07-23 04:00:00 89.994 kg height 2020-05-27 11:00:00 66.00 [in_i] [facility] weight 2020-05-27 11:00:00 202.6 [lb_av] [facility] temperature 2020-05-27 11:00:00 98.6 [degF] [facility] bmi 2020-05-27 11:00:00 32.70 kg/m2 [facility] oximetry 2020-05-27 11:00:00 96 % [facility] respiratory rate 2020-05-27 11:00:00 16 /min Comm on [facility] blood pressure 2020-05-27 11:00:00 138 mm[Hg] Common [facility] - systolic [facility] blood pressure 2020-05-27 11:00:00 75 mm[Hg] [facility] - diastolic [facility] Systolic blood 2022-07-26 11:21:00 123 mm[Hg] [facility] Diastolic blood 2022-07-26 11:21:00 69 mm[Hg] [facility] rate 2022-07-26 11:21:00 72 /min [facility] Body temperature 2022-07-26 11:21:00 36.44 Jaylin [facility] Respiratory rate 2022-07-26 11:21:00 14 /min [facility] Oxygen saturation in 2022-07-26 11:21:00 100 /min [facility] Arterial blood by Medical Ce nter Pulse oximetry Body height 2022-07-24 11:38:00 167.6 cm [facility] Procedures Procedure Date / Time Performed Performing Clinician Sour e HEMOGLOBIN AND HEMATOCRIT 2022-07-26 11:52:00 Chapin Rivas [facility] POCT-GLUCOSE METER 2022-07-26 11:18:00 [facility] POCT-GLUCOSE METER 2022-07-26 05:20:00 [facility] COMPREHENSIVE METABOLIC 2022-07-26 05:17:00 Raffy [facility] CBC W/PLT COUNT & AUTO 2022-07-26 05:17:00 Shamdanny Yazan[place] [facility] DIFFERENTIAL [facility] CBC W/PLT COUNT & AUTO 2022-07-26 05:17:00 Shamsee Yazan[place] [facility] DIFFERENTIAL [facility] (MANUAL DIFFERENTIAL) 2022-07-26 05:17:00 Shamsee, Yazan[place] [facility] HEMOGLOBIN AND HEMATOCRIT 2022-07-26 00:20:00 Autumn Prado [facility] POCT-GLUCOSE METER 2022-07-25 20:31:00 Raffy [facility] HEMOGLOBIN AND HEMATOCRIT 2022-07-25 17:36:00 Autumn Prado [facility] POCT-GLUCOSE METER 2022-07-25 17:18:[facility] PO[facility]SE METER 2022-07-25 12:36:00 [facility] HEMOGLOBIN AND HEMATOCRIT 2022-07-25 12:27:00 [facility] FERRITIN 2022-07-25 12:27:00 [facility]12 2022-07-25 12:27[facility]00 [facility] IRON, TIBC, % SAT. 2022-07-25 12:27:00 [facility] Medical Cente r CBC W/PLT COUNT & AUTO 2022-07-25 08:00:00 [facility] HEMOGLOBIN A1C 2022-07-25 08:00:00 [facility] CBC W/PLT COUNT & AUTO 2022-07-25 08:00:00 Juanito Cosby [facility] (MANUAL DIFFERENTIAL) 2022-07-25 08:00:00 Juanito Cosby [facility] COMPREHENSIVE METABOLIC 2022-07-25 05:50:00 [facility] LIP[facility]EL 2022-07-25 05:50:00 [facility] POCT-GLUCOSE METER 2022-07-25 05:24:00 Juanito Cosby [facility] PREPARE RBC 2022-07-24 23:54:00 Macario hSeets [facility] HEMOGLOBIN AND HEMATOCRIT 2022-07-24 23:18:[address] [facility] POCT-GLUCOSE METER 2022-07-24 20:26:00 Juanito Cosby [facility] HEMOGLOBIN AND HEMATOCRIT 2022-07-24 17:58:[facility] POCT-GLU[facility]SE METER 2022-07-24 16:33:00 Juanito Cosby [facility] US ABDOMEN LIMITED 2022-07-24 15:59:00 Juanito Cosby [facility] REPORT OF PROCEDURE - 2022-07-24 12:30:[address] [facility] ENDOSCOPY [facility] EGD, WITH VARICEAL 2022-07-24 12:06:00 Chapin Rivas [facility] S [facility] BANDING [facility] HEMOGLOBIN AND HEMATOCRIT 2022-07-24 11:19:00 Autumn Prado I [facility] POCT-GLUCOSE METER 2022-07-24 11:17:00 Harjeet [facility] CBC W/PLT COUNT & AUTO 2022-07-24 05:22:00 Raffy [facility] COMPREHENSIVE METABOLIC 2022-07-24 05:22:00 [facility] CBC W/PLT COUNT & AUTO 2022-07-24 05:22:[address] [facility] POCT-GLUCOSE METER 2022-07-24 04:38:00 Harjeet [facility] Plan of Care Planned Activity Planned Date Details Comments Source Future Scheduled 2025-07-25 Lipid panel (procedure) [facility] Test 00:00:00 [code = 32848540] Medical Ce nter Future Scheduled 2023-04-19 Influenza Vaccine (#1) [facility] 00:00[facility]00 [code = Influenza Vaccine [facility] Future Scheduled 2023-01-[address] [facility] Test 00:00:00 measurement (procedure) [facility] [code = 99246592] Future Scheduled 2022-08-[address] [facility] Test 00:00:00 (12+) [code = DEPRESSION Med [facility] SCREENING (12+)] Future Scheduled 2014-05-03 Pneumococcal Vaccine: [facility] Test 00:00:00 0-64 Years (2 - PCV) Medical Center [code = Pneumococcal Vaccine: 0-64 Years (2 - PCV)] Future Scheduled 1994-10-18 DTAP/TDAP/TD VACCINES ([address] [facility] Test 00:00:00 - Tdap) [code = Medical Cent er DTAP/TDAP/TD VACCINES (1 - Tdap)] Future Scheduled 1990-10-[address] [facility] Test 00:00:00 virus screening Medical Cent er (procedure) [code = 096429410] Future Scheduled [address] [facility] Test 00:00:00 Counseling and Screening [facility] (12+) [code = Tobacco Cessation Counseling and Screening (12+)] Future Scheduled 1985-10-18 DIABETIC EYE EXAM [code = [facility] Test 00:00:00 DIABETIC EYE EXAM] Medical C enter Future Scheduled 1985-10-18 Diabetic foot examination [facility] Test 00:00:00 (regime/therapy) [code = Med ica Center [id number]] Future Scheduled 1985-10-18 Urine screening for [facility] Test 00:00:00 protein (procedure) [code [facility] Center = 045120473] Future Scheduled 1976-04-20 COVID-19 VACCINE (#1) [facility] Test 00:00:00 [code = COVID-19 VACCINE [facility] (#1)] Future Scheduled 1975 CT Colonography (combo) [facility] Test 00:00:00 [code = CT Colonography [facility] (combo)] Future Scheduled 1975 Screening for malignant [facility] Test 00:00:00 neoplasm of colon Medical Ce nter (procedure) [code = 658613916] Future Scheduled 1975 Screening for malignant [facility] Test 00:00:00 neoplasm of colon Medical Ce nter (procedure) [code = 529735228] Future Scheduled 1975 Screening for malignant [facility] Test 00:00:00 neoplasm of colon Medical Ce nter (procedure) [code = 780218771] Future Scheduled 1975 Screening for malignant [facility] Test 00:00:00 neoplasm of colon Medical Ce nter (procedure) [code = 582867985] Future Scheduled 1975 Sigmoidoscopy [code = [facility] Test 00:00:00 Sigmoidoscopy] Medical Cente r Encounters Start End Encounter Admission Attending Care Care Encounter Source Date/Time Date/Time Type Type Clinicians Facility Department ID 2021-09-13 [id number] Common 11:53:42 [id number] [facility] 2021-09-13 [facility] [id number] 2 Common 11:52:46 [id number] [facility] 2021-09-13 Outpatient Akins, [facility] [id number] 2 Common 11:28:27 [id number] [facility] 2021-09-13 Outpatient Akins, [facility] [id number] 2 Common 11:18:09 [id number] [facility] 2021-09-13 Outpatient Akins, [facility] [id number] 2 Common 11:01:39 [id number] [facility] 2022-07-23 2022-07-26 Hospital Macario Sheets [facility] [id number] 03:07:00 17:45:00 Encounter Juanito Cosby Risheng [facility] 2022-07-23 2022-07-26 Inpatient ER AUTUMN PRADO [facility] General Med [id number] [facility] 03:07:00 17:45:00 2022-07-24 2022-07-24 Anesthesia Sheldon Rose [facility] [id number] 12:06:00 12:37:00 Event Darren Cardenas [facility] 2022-07-24 2022-07-24 Surgery Rob [facility] [id number] 12:00:00 12:15:00 Chapin [facility] 2020-05-27 2020-05-27 OFFICE [facility] [id number] Co mmon 00:00:00 00:00:00 VISIT EST Spir it PT LEVEL 3 - [facility] 2020-02-12 2020-02-12 Out[facility] [id number] Common 08:00:00 08:00:00 t [employer] Sp[address] [facility] 2019-11-13 2019-11-13 Outpatient [facility] [id number] Common 08:00:00 08:00:00 t [employer] Sp[address] [facility] 2019-11-09 2019-11-09 Outpatient [facility] [id number] Common 08:00:00 08:00:00 [employer] [address] [facility] 2019-09-14 2019-09-14 Outpatient [facility] [id number] Common 16:00:00 16:00:[address] [facility] Results Test Description Test Time Test Comments Results Result Comments Source HEMOGLOBIN AND HEMATOCRIT 2022-07-26 12:06:45 Test Item Value Reference Range Interpretation Comme nts HEMOGLOBIN (BEAKER) (test code = 410) 7.4 GM/DL 13.0-16.8 L HEMATOCRIT (BEAKER) (test code = 411) 24.8 % 36.0-50.0 L POC-Glucose [id number] 11:31:14 Test Item Value Reference Range Interpretation Comments POC-Glucose Meter (test 126 mg/dL 70-110 H : TE STED AT [facility] code = 1538) [address], [facility] [id number]: Window Repairer/Techni radha ID = [id number] for Jenny Núñez Lab Interpretation (test Abnormal code = 66377-5) [facility] [id number] 11:31:14 Test Item Value Reference Range Interpretation Comments POC-GLUCOSE METER 126 mg/dL 70-110 H : TESTED A T [facility] (BEAKER) (test code [address], = 1538) [facility] 7707 0: Window Repairer/Techni radha ID = [id number] for Stew Jenny la CBC W/PLT COUNT & AUTO [id number] 06:53:13 Test Item Value Reference Range Interpretation Comments WHITE BLOOD CELL COUNT 2.3 K/ L 4.0-10.0 L (BEAKER) (test code = 775) RED BLOOD CELL COUNT 3.00 M/ L 4.20-5.80 L (BEAKER) (test code = 761) HEMOGLOBIN (BEAKER) 7.0 GM/DL 13.0-16.8 L (test code = 410) HEMATOCRIT (BEAKER) 22.8 % 36.0-50.0 L (test code = 411) MEAN CORPUSCULAR VOLUME 76 fL 82-99 L (BEAKER) (test code = 753) MEAN CORPUSCULAR 23.3 pg 27.0-33.0 L HEMOGLOBIN (BEAKER) (test code = 751) MEAN CORPUSCULAR 30.7 GM/DL 32.0-36.0 L HEMOGLOBIN CONC (BEAKER) (test code = 752) RED CELL DISTRIBUTION 21.2 % 12.0-15.0 H WIDTH (BEAKER) (test code = 412) PLATELET COUNT (BEAKER) 57 K/CU MM 150-430 L (test code = 756) MEAN PLATELET VOLUME Unable to report due (BEAKER) (test code = to abn ormal Platelet 754) population distribution. NUCLEATED RED BLOOD 0 /100 WBC 0-0 CELLS (BEAKER) (test code = 413) NEUTROPHILS RELATIVE 57 % PERCENT (BEAKER) (test code = 429) LYMPHOCYTES RELATIVE 27 % PERCENT (BEAKER) (test code = 430) MONOCYTES RELATIVE 10 % PERCENT (BEAKER) (test code = 431) EOSINOPHILS RELATIVE 5 % PERCENT (BEAKER) (test code = 432) BASOPHILS RELATIVE 1 % PERCENT (BEAKER) (test code = 437) NEUTROPHILS ABSOLUTE 1.33 K/ L 1.80-8.00 L COUNT (BEAKER) (test code = 670) LYMPHOCYTES ABSOLUTE 0.62 K/ L 1.48-4.50 L COUNT (BEAKER) (test code = 414) MONOCYTES ABSOLUTE 0.24 K/ L 0.00-1.30 COUNT (BEAKER) (test code = 415) EOSINOPHILS ABSOLUTE 0.11 K/ L 0.00-0.50 COUNT (BEAKER) (test code = 416) BASOPHILS ABSOLUTE 0.02 K/ L 0.00-0.20 COUNT (BEAKER) (test code = 417) IMMATURE 0.40 % 0.00-0.00 H GRANULOCYTES-RELATIVE PERCENT (BEAKER) (test code = 2801) (MANUAL DIFFERENTIAL)2022-07-26 06:53:13 Test Item Value Reference Range Interpretation Comments WBC MORPHOLOGY (BEAKER) (test code = Normal 487) LARGE PLT(BEAKER) (test code = 2156) Present ANISOCYTOSIS (BEAKER) (test code = 2+ 961) HYPOCHROMIA (BEAKER) (test code = 2+ 963) POLYCHROMATOPHILLIC RBCS(BEAKER) 1+ few (test code = 478) COMPREHENSIVE METABOLIC [id number] 05:48:32 Test Item Value Reference Range Interpretation Comments TOTAL PROTEIN 6.2 gm/dL 6.0-8.5 (BEAKER) (test code = 770) ALBUMIN (BEAKER) 3.4 g/dL 3.5-5.0 L (test code = 1145) ALKALINE 66 U/L 30-115 PHOSPHATASE (BEAKER) (test code = 346) BILIRUBIN TOTAL 1.3 mg/dL 0.1-1.2 H (BEAKER) (test code = 377) SODIUM (BEAKER) 138 meq/L 135-148 (test code = 381) POTASSIUM (BEAKER) 3.8 meq/L 3.6-5.5 (test code = 379) CHLORIDE (BEAKER) 109 meq/L 98-106 H (test code = 382) CO2 (BEAKER) (test 23 meq/L 20-29 code = 355) BLOOD UREA 7 mg/dL 10-26 L NITROGEN (BEAKER) (test code = 354) CREATININE 0.72 mg/dL 0.50-1.20 (BEAKER) (test code = 358) GLUCOSE RANDOM 121 mg/dL 70-110 H (BEAKER) (test code = 652) CALCIUM (BEAKER) 7.8 mg/dL 8.5-10.5 L (test code = 697) AST (SGOT) 50 U/L 5-40 H (BEAKER) (test code = 353) ALT (SGPT) 35 U/L 5-50 (BEAKER) (test code = 347) EGFR (BEAKER) 114 Interpretatio n of eGFR (test code = 1092) mL/min/1.[address] age Description sq m Result G1 Michelle l or high >=90 G2 Mildly decreased 60-89 G3a Mild ly to moderately 45-5 9 G3b Moderately to s everely 30-44 G4 Severl y decreased 15-29 G5 Kidney failure <15Reported eGF R is based on the CKD-EPI 2021 equation that d oes not use a race coefficientEsti mated GFR is not as accur ate as Creatinine La michel in predicting glom erular filtration rate . Estimated GFR is not appl icable for dialysis patien ts Window Repairer ID - Rubia TPOCT-GLUCOSE [id number] 05:31:46 Test Item Value Reference Range Interpretation Comments POC-GLUCOSE METER 116 mg/dL 70-110 H : TESTED A T [facility] (BEAKER) (test code [address], = 1538) [place] [address] 0: Window Repairer/Techni radha ID = [id number] for Porfirio Gatica HEMOGLOBIN AND [id number] 00:31:59 Test Item Value Reference Range Interpretation Comments HEMOGLOBIN (BEAKER) (test code = 7.2 GM/DL 13.0-16.8 L 410) HEMATOCRIT (BEAKER) (test code = 24.3 % 36.0-50.0 L 411) POCT-GLUCOSE [id number] 20:42:39 Test Item Value Reference Range Interpretation Comments POC-GLUCOSE METER 131 mg/dL 70-110 H : TESTED A T [facility] (BEAKER) (test code [address], = 1538) [place] [address] 0: Window Repairer/Techni radha ID = [id number] for Porfirio Gatica VITAMIN [id number] 20:40:47 Test Item Value Reference Range Interpretation Comments VITAMIN B12 (BEAKER) (test code = 695 pg/mL 213-816 774) Window Repairer ID - BSIRON, TIBC, % SAT. (WITHOUT FERRITIN)2022-07-25 20:13:22 Test Item Value Reference Range Interpretation Comments IRON (BEAKER) (test code = 547) 17.0 ug/dL 40.0-160.0 L TOTAL IRON BINDING CAPACITY 319 ug/dL 250-450 (BEAKER) (test code = 769) IRON % SATURATION (2) (BEAKER) 5 % 20-55 L (test code = 2590) Window Repairer ID - BSHEMOGLOBIN AND [id number] 18:16:36 Test Item Value Reference Range Interpretation Comments HEMOGLOBIN (BEAKER) (test code = 8.4 GM/DL 13.0-16.8 L 410) HEMATOCRIT (BEAKER) (test code = 27.8 % 36.0-50.0 L 411) POCT-GLUCOSE [id number] 17:29:43 Test Item Value Reference Range Interpretation Comments POC-GLUCOSE METER 144 mg/dL 70-110 H : TESTED A T [facility] (BEAKER) (test code [address], = 1538) [place] [address] 0: Window Repairer/Techni radha ID = [id number] for Walt Pugh [id number] 13:24:39 Test Item Value Reference Range Interpretation Comments FERRITIN (BEAKER) (test code = 11.17 ng/mL 22.00-322.00 L 361) Window Repairer ID - NLYLEHEMOGLOBIN AND [id number] 12:49:19 Test Item Value Reference Range Interpretation Comments HEMOGLOBIN (BEAKER) (test code = 8.1 GM/DL 13.0-16.8 L 410) HEMATOCRIT (BEAKER) (test code = 26.2 % 36.0-50.0 L 411) POCT-GLUCOSE [id number] 12:48:00 Test Item Value Reference Range Interpretation Comments POC-GLUCOSE METER 143 mg/dL 70-110 H : TESTED A T [facility] (BEAKER) (test code [address], = 1538) [place] [address] 0: Window Repairer/Techni radha ID = [id number] for Ricardo Stafford HEMOGLOBIN [id number] 11:41:57 Test Item Value Reference Range Interpretation Comments HEMOGLOBIN A1C (BEAKER) (test code = 6.1 % 4.3-6.1 368) Window Repairer ID - NLYLELIPID [id number] 10:58:17 Test Item Value Reference Range Interpretation Comments TRIGLYCERIDES (BEAKER) (test code = 89 mg/dL 540) CHOLESTEROL (BEAKER) (test code = 116 mg/dL 631) HDL CHOLESTEROL (BEAKER) (test code 16 mg/dL = 976) LDL CHOLESTEROL CALCULATED (BEAKER) 82 mg/dL (test code = 633) Triglyceride Reference Range: Low Risk <150 Borderline 150-199 High Risk 200- 499 Very High Risk >=500Cholesterol Reference Range: Low Risk <200 Borderline 200-239 High Risk >240HDL Cholesterol Reference Range: Low Risk >=60 High Risk <40LDL Cholesterol Reference Range: Optimal <100 Near Optimal 100-129 Borderline 130-159 High 160-189 Very High >=190 Window Repairer ID - NLYLECBC W/PLT COUNT & AUTO [id number] 09:43:36 Test Item Value Reference Range Interpretation Comments WHITE BLOOD CELL COUNT 2.7 K/ L 4.0-10.0 L (BEAKER) (test code = 775) RED BLOOD CELL COUNT 3.28 M/ L 4.20-5.80 L (BEAKER) (test code = 761) HEMOGLOBIN (BEAKER) 7.6 GM/DL 13.0-16.8 L (test code = 410) HEMATOCRIT (BEAKER) 24.7 % 36.0-50.0 L (test code = 411) MEAN CORPUSCULAR VOLUME 75 fL 82-99 L (BEAKER) (test code = 753) MEAN CORPUSCULAR 23.2 pg 27.0-33.0 L HEMOGLOBIN (BEAKER) (test code = 751) MEAN CORPUSCULAR 30.8 GM/DL 32.0-36.0 L HEMOGLOBIN CONC (BEAKER) (test code = 752) RED CELL DISTRIBUTION 20.4 % 12.0-15.0 H WIDTH (BEAKER) (test code = 412) PLATELET COUNT (BEAKER) 62 K/CU MM 150-430 L (test code = 756) MEAN PLATELET VOLUME Unable to report due (BEAKER) (test code = to abn ormal Platelet 754) population distribution. NUCLEATED RED BLOOD 0 /100 WBC 0-0 CELLS (BEAKER) (test code = 413) NEUTROPHILS RELATIVE 66 % PERCENT (BEAKER) (test code = 429) LYMPHOCYTES RELATIVE 21 % PERCENT (BEAKER) (test code = 430) MONOCYTES RELATIVE 9 % PERCENT (BEAKER) (test code = 431) EOSINOPHILS RELATIVE 4 % PERCENT (BEAKER) (test code = 432) BASOPHILS RELATIVE 0 % PERCENT (BEAKER) (test code = 437) NEUTROPHILS ABSOLUTE 1.80 K/ L 1.80-8.00 COUNT (BEAKER) (test code = 670) LYMPHOCYTES ABSOLUTE 0.56 K/ L 1.48-4.50 L COUNT (BEAKER) (test code = 414) MONOCYTES ABSOLUTE 0.25 K/ L 0.00-1.30 COUNT (BEAKER) (test code = 415) EOSINOPHILS ABSOLUTE 0.10 K/ L 0.00-0.50 COUNT (BEAKER) (test code = 416) BASOPHILS ABSOLUTE 0.01 K/ L 0.00-0.20 COUNT (BEAKER) (test code = 417) IMMATURE 0.40 % 0.00-0.00 H GRANULOCYTES-RELATIVE PERCENT (BEAKER) (test code = 2801) (MANUAL DIFFERENTIAL)2022-07-25 09:43:36 Test Item Value Reference Range Interpretation Comments TOTAL COUNTED (BEAKER) (test code = 1351) WBC MORPHOLOGY (BEAKER) (test code = Normal 487) PLT MORPHOLOGY (BEAKER) (test code = Normal 486) ANISOCYTOSIS (BEAKER) (test code = 2+ 961) HYPOCHROMIA (BEAKER) (test code = 963) 2+ MICROCYTES (BEAKER) (test code = 965) 1+ OVALOCYTES (BEAKER) (test code = 477) 1+ POIKILOCYTES (BEAKER) (test code = 1+ few 966) POLYCHROMATOPHILLIC RBCS(BEAKER) (test 1+ few code = 478) TARGET CELLS (BEAKER) (test code = 1+ few 480) U/S, ABDOMINAL, [id number] 08:38:00Abdomen limited area? Add comment if clarification is needed.->LiverReason for exam:->cirrhosis, r\E\o masses [facility] : 1975 Sex: MFINAL REPORT P ATIENT ID: [id number] Right upper quadrant abdominal ultrasound, 07/24/2022. History: Abdominal pain. Comparison: MRI 07/02/2019, ultrasound 07/01/2019. Discussion: Transverse and longitudinal images of the right upper quadrant of the abdomen were obtained demonstrating a liver of increased size and heter ogeneous echogenicity measuring 17.8 cm in length. There is stable rounded prominence of the caudatelobe but without visible hepatic mass. The portal vein is patent with hepatopetal flow and is withinnormal limits measuring 12 mm in diameter. The biliary tree is within normal limits with the common bile duct measuring 4 mm in diameter. The gallbladder contains sludge and stones without evidence of wall thickening or pericholecystic fluid. The sonographic Cuadra's sign was negative. The right kidney is normal in size and echogenicity without evidence of hydronephrosis, stones, or mass and vgullkkz75.1 cm in length. The pancreatic body and proximal tail are visualized and are normal in appearance. The abdominal aorta is within normal limits. There is no evidence of free fluid. IMPRESSION: 1. Enlarged cirrhotic liver with stable prominence of the caudate lobe. Consider MRI for more complete surveillance.2. Cholelithiasis and gallbladder sludge without sonographic evidence of cholecystitis. Signed: Taqueria Watson Verified Date/Time: 07/25/2022 08:38:19 Reading Location: [facility] Mammo Reading Room US abdomen [id number] 08:38:00FINAL REPORT Right upper quadrant abdominal ultrasound, 07/24/2022. History: Abdominal pain. Comparison: MRI 07/02/2019, ultrasound 07/01/2019. Discussion: Transverse and longitudinal images of the right upper quadrant of the abdomen were obtained demonstrating a liver of increasedsize and heterogeneous echogenicity measuring 17.8 cm in length. There is stable rounded prominence of the caudate lobe but without visible hepatic mass. The portal vein is patent with hepatopetal flowand is within normal limits measuring 12 mm in diameter. The biliary tree is within normal limits with the common bile duct measuring 4 mm in diameter. The gallbladder contains sludge and stones without evidence of wall thickening or pericholecystic fluid. The sonographic Cudara's sign was negative. The right kidney is normal in size and echogenicity without evidence of hydronephrosis, stones, or mass and measures 10.1 cm in length. The pancreatic body and proximal tail are visualized and are normalin appearance. The abdominal aorta is within normal limits. There is no evidence of free fluid. IMPRESSION: 1. Enlarged cirrhotic liver with stable prominence of the caudate lobe. Consider MRI for morecomplete surveillance.2. Cholelithiasis and gallbladder sludge without sonographic evidence of cholecystitis. Signed: Shirley, Taqueria MDReport Verified Date/Time: 07/25/2022 08:38:19 [facility] CampusCOMPREHENS[facility] METABOLIC [id number] 06:49:54 Test Item Value Reference Range Interpretation Comments TOTAL PROTEIN 6.0 gm/dL 6.0-8.5 (BEAKER) (test code = 770) ALBUMIN (BEAKER) 3.1 g/dL 3.5-5.0 L (test code = 1145) ALKALINE 68 U/L 30-115 PHOSPHATASE (BEAKER) (test code = 346) BILIRUBIN TOTAL 1.3 mg/dL 0.1-1.2 H (BEAKER) (test code = 377) SODIUM (BEAKER) 139 meq/L 135-148 (test code = 381) POTASSIUM (BEAKER) 3.6 meq/L 3.6-5.5 (test code = 379) CHLORIDE (BEAKER) 107 meq/L 98-106 H (test code = 382) CO2 (BEAKER) (test 24 meq/L 20-29 code = 355) BLOOD UREA 9 mg/dL 10-26 L NITROGEN (BEAKER) (test code = 354) CREATININE 0.71 mg/dL 0.50-1.20 (BEAKER) (test code = 358) GLUCOSE RANDOM 159 mg/dL 70-110 H (BEAKER) (test code = 652) CALCIUM (BEAKER) 7.6 mg/dL 8.5-10.5 L (test code = 697) AST (SGOT) 54 U/L 5-40 H (BEAKER) (test code = 353) ALT (SGPT) 31 U/L 5-50 (BEAKER) (test code = 347) EGFR (BEAKER) 114 Interpretatio n of eGFR (test code = 1092) mL/min/1.[address] age Description sq m Result G1 Michelle l or high >=90 G2 Mildly decreased 60-89 G3a Mildl y to moderately 45-5 9 G3b Moderately to s everely 30-44 G4 Severl y decreased 15-29 G5 Kidney failure <15Reported eGF R is based on the CKD-EPI 2020 equation that d oes not use a race coefficientEsti mated GFR is not as accur ate as Creatinine [place] michel in predicting glom erular filtration rate . Estimated GFR is not appl icable for dialysis patien ts Window Repairer ID - CHOPZPOCT-GLUCOSE [id number] 05:38:36 Test Item Value Reference Range Interpretation Comments POC-GLUCOSE METER 156 mg/dL 70-110 H : TESTED A T [facility] (BEAKER) (test code [address], = 1538) [place] [address] 0: Window Repairer/Techni radha ID = [id number] for loft on, jacklyne Prepare [id number] 23:54:00 Test Item Value Reference Range Interpretation Comments CROSSMATCH (test code = 2264) COMPATIBLE Unit ABO (test code = O Pos 5661988) UNIT NUMBER (test code = Q138537807539 934-0) Status (test code = 5718522) [facility] Blood [facility] Product (test code RED BLOOD CELLS = 2263) PRODUCT CODE (test code = T3361R97 933-2) [facility] [id number] 23:33:37 Test Item Value Reference Range Interpretation Comments HEMOGLOBIN (BEAKER) (test code = 7.3 GM/DL 13.0-16.8 L 410) HEMATOCRIT (BEAKER) (test code = 23.8 % 36.0-50.0 L 411) POCT-GLUCOSE [id number] 20:37:44 Test Item Value Reference Range Interpretation Comments POC-GLUCOSE METER 137 mg/dL 70-110 H : TESTED A T [facility] (BEAKER) (test code [address], = 1538) [place] [address] 0: Window Repairer/Techni radha ID = [id number] for loft on, jacklyne HEMOGLOBIN AND [id number] 18:07:42 Test Item Value Reference Range Interpretation Comments HEMOGLOBIN (BEAKER) (test code = 7.8 GM/DL 13.0-16.8 L 410) HEMATOCRIT (BEAKER) (test code = 25.5 % 36.0-50.0 L 411) POCT-GLUCOSE [id number] 16:45:29 Test Item Value Reference Range Interpretation Comments POC-GLUCOSE METER 135 mg/dL 70-110 H : TESTED A T [facility] (BEAKER) (test code [address], = 1538) [place] [address] 0: Window Repairer/Techni radha ID = [id number] for Don Matson HEMOGLOBIN AND [id number] 11:45:06 Test Item Value Reference Range Interpretation Comments HEMOGLOBIN (BEAKER) (test code = 7.5 GM/DL 13.0-16.8 L 410) HEMATOCRIT (BEAKER) (test code = 24.5 % 36.0-50.0 L 411) POCT-GLUCOSE [id number] 11:29:48 Test Item Value Reference Range Interpretation Comments POC-GLUCOSE METER 147 mg/dL 70-110 H : TESTED A T [facility] (BEAKER) (test code [address], = 1538) [place] [address] 0: Window Repairer/Techni radha ID = [id number] for Jenny Prakash COMPREHENSIVE METABOLIC [id number] 05:57:28 Test Item Value Reference Range Interpretation Comments TOTAL PROTEIN 6.1 gm/dL 6.0-8.5 (BEAKER) (test code = 770) ALBUMIN (BEAKER) 3.1 g/dL 3.5-5.0 L (test code = 1145) ALKALINE 66 U/L 30-115 PHOSPHATASE (BEAKER) (test code = 346) BILIRUBIN TOTAL 1.3 mg/dL 0.1-1.2 H (BEAKER) (test code = 377) SODIUM (BEAKER) 137 meq/L 135-148 (test code = 381) POTASSIUM (BEAKER) 4.0 meq/L 3.6-5.5 (test code = 379) CHLORIDE (BEAKER) 108 meq/L 98-106 H (test code = 382) CO2 (BEAKER) (test 26 meq/L 20-29 code = 355) BLOOD UREA 11 mg/dL 10-26 NITROGEN (BEAKER) (test code = 354) CREATININE 0.72 mg/dL 0.50-1.20 (BEAKER) (test code = 358) GLUCOSE RANDOM 158 mg/dL 70-110 H (BEAKER) (test code = 652) CALCIUM (BEAKER) 8.2 mg/dL 8.5-10.5 L (test code = 697) AST (SGOT) 54 U/L 5-40 H (BEAKER) (test code = 353) ALT (SGPT) 33 U/L 5-50 (BEAKER) (test code = 347) EGFR (BEAKER) 114 Interpretatio n of eGFR (test code = 1092) mL/min/1.[address] age Description sq m Result G1 Michelle l or high >=90 G2 Mildly decreased 60-89 G3a Mildl y to moderately 45-5 9 G3b Moderately to s everely 30-44 G4 Severl y decreased 15-29 G5 Kidney failure <15Reported eGF R is based on the CKD-EPI 2020 equation that d oes not use a race coefficientEsti mated GFR is not as accur ate as Creatinine [place] mar[place]u in predicting glom erular filtration rate . Estimated GFR is not appl icable for dialysis patien ts Window Repairer ID - Rubia TCBC W/PLT COUNT & AUTO [id number] 05:53:28 Test Item Value Reference Range Interpretation Comments WHITE BLOOD CELL COUNT 2.7 K/ L 4.0-10.0 L (BEAKER) (test code = 775) RED BLOOD CELL COUNT 3.21 M/ L 4.20-5.80 L (BEAKER) (test code = 761) HEMOGLOBIN (BEAKER) 7.5 GM/DL 13.0-16.8 L (test code = 410) HEMATOCRIT (BEAKER) 24.0 % 36.0-50.0 L (test code = 411) MEAN CORPUSCULAR VOLUME 75 fL 82-99 L (BEAKER) (test code = 753) MEAN CORPUSCULAR 23.4 pg 27.0-33.0 L HEMOGLOBIN (BEAKER) (test code = 751) MEAN CORPUSCULAR 31.3 GM/DL 32.0-36.0 L HEMOGLOBIN CONC (BEAKER) (test code = 752) RED CELL DISTRIBUTION 19.6 % 12.0-15.0 H WIDTH (BEAKER) (test code = 412) PLATELET COUNT (BEAKER) 67 K/CU MM 150-430 L (test code = 756) MEAN PLATELET VOLUME Unable to report due (BEAKER) (test code = to abn ormal Platelet 754) population distribution. NUCLEATED RED BLOOD 1 /100 WBC 0-0 H CELLS (BEAKER) (test code = 413) NEUTROPHILS RELATIVE 62 % PERCENT (BEAKER) (test code = 429) LYMPHOCYTES RELATIVE 25 % PERCENT (BEAKER) (test code = 430) MONOCYTES RELATIVE 8 % PERCENT (BEAKER) (test code = 431) EOSINOPHILS RELATIVE 5 % PERCENT (BEAKER) (test code = 432) BASOPHILS RELATIVE 1 % PERCENT (BEAKER) (test code = 437) NEUTROPHILS ABSOLUTE 1.66 K/ L 1.80-8.00 L COUNT (BEAKER) (test code = 670) LYMPHOCYTES ABSOLUTE 0.66 K/ L 1.48-4.50 L COUNT (BEAKER) (test code = 414) MONOCYTES ABSOLUTE 0.22 K/ L 0.00-1.30 COUNT (BEAKER) (test code = 415) EOSINOPHILS ABSOLUTE 0.12 K/ L 0.00-0.50 COUNT (BEAKER) (test code = 416) BASOPHILS ABSOLUTE 0.02 K/ L 0.00-0.20 COUNT (BEAKER) (test code = 417) IMMATURE 0.40 % 0.00-0.00 H GRANULOCYTES-RELATIVE PERCENT (BEAKER) (test code = 2801) POCT-GLUCOSE [id number] 04:49:48 Test Item Value Reference Range Interpretation Comments POC-GLUCOSE METER 153 mg/dL 70-110 H : TESTED A T [facility] (BEAKER) (test code [address], = 1538) [place] [address] 0: Window Repairer/Techni radha ID = [id number] for loft on, jacklyne HEMOGLOBIN AND [id number] 20:52:56 Test Item Value Reference Range Interpretation Comments HEMOGLOBIN (BEAKER) (test code = 7.5 GM/DL 13.0-16.8 L 410) HEMATOCRIT (BEAKER) (test code = 24.7 % 36.0-50.0 L 411) POCT-GLUCOSE [id number] 20:29:17 Test Item Value Reference Range Interpretation Comments POC-GLUCOSE METER 169 mg/dL 70-110 H : TESTED A T [facility] (BEAKER) (test code [address], = 1538) [place] [address] 0: Window Repairer/Techni radha ID = [id number] for loft on, jacklyne POCT-GLUCOSE [id number] 16:53:31 Test Item Value Reference Range Interpretation Comments POC-GLUCOSE METER 125 mg/dL 70-110 H : TESTED A T [facility] (BEAKER) (test code [address], = 1538) [place] [address] 0: Window Repairer/Techni radha ID = [id number] for Clav Myrna hare POCT-GLUCOSE [id number] 12:10:04 Test Item Value Reference Range Interpretation Comments POC-GLUCOSE METER 140 mg/dL 70-110 H : TESTED A T [facility] (BEAKER) (test code [address], = 1538) [place] [address] 0: Window Repairer/Techni radha ID = [id number] for Clav eria, Myrna IRON, TIBC, % SAT. (WITHOUT FERRITIN)2022-07-23 11:15:06 Test Item Value Reference Range Interpretation Comments IRON (BEAKER) (test code = 547) 71.0 ug/dL 40.0-160.0 TOTAL IRON BINDING CAPACITY 289 ug/dL 250-450 (BEAKER) (test code = 769) IRON % SATURATION (2) (BEAKER) 25 % 20-55 (test code = 2590) Window Repairer ID - ADMINBASIC METABOLIC [id number] 06:15:47 Test Item Value Reference Range Interpretation Comments SODIUM (BEAKER) 135 meq/L 135-148 (test code = 381) POTASSIUM 4.0 meq/L 3.6-5.5 (BEAKER) (test code = 379) CHLORIDE (BEAKER) 106 meq/L 98-106 (test code = 382) CO2 (BEAKER) 25 meq/L 20-29 (test code = 355) BLOOD UREA 14 mg/dL 10-26 NITROGEN (BEAKER) (test code = 354) CREATININE 0.63 mg/dL 0.50-1.20 (BEAKER) (test code = 358) GLUCOSE RANDOM 191 mg/dL 70-110 H (BEAKER) (test code = 652) CALCIUM (BEAKER) 8.0 mg/dL 8.5-10.5 L (test code = 697) EGFR (BEAKER) 118 Interpretatio n of eGFR (test code = mL/min/1.73 values Stage De scription 1092) sq m Result G1 Michelle l or high >=90 G2 Mildly decreased 60-89 G3a Mildl y to moderately 45-5 9 G3b Moderately to s everely 30-44 G4 Severl y decreased 15-29 G5 Kidney failure <15Reported eGF R is based on the CKD-EPI 2020 equation that d oes not use a race coefficientEsti mated GFR is not as accur ate as Creatinine [place] mar[place] in predicting glom erular filtration rate . Estimated GFR is not appl icable for dialysis patien ts Window Repairer ID - CHOPZHEPATIC FUNCTION [id number] 06:15:47 Test Item Value Reference Range Interpretation Comments TOTAL PROTEIN (BEAKER) (test code = 6.0 gm/dL 6.0-8.5 770) ALBUMIN (BEAKER) (test code = 1145) 3.2 g/dL 3.5-5.0 L BILIRUBIN TOTAL (BEAKER) (test code 1.4 mg/dL 0.1-1.2 H = 377) BILIRUBIN DIRECT (BEAKER) (test 0.7 mg/dL 0.0-0.4 H code = 706) ALKALINE PHOSPHATASE (BEAKER) (test 80 U/L 30-115 code = 346) AST (SGOT) (BEAKER) (test code = 26 U/L 5-40 353) ALT (SGPT) (BEAKER) (test code = 23 U/L 5-50 347) Window Repairer ID - CHOPZHEMOGLOBIN AND [id number] 06:05:05 Test Item Value Reference Range Interpretation Comments HEMOGLOBIN (BEAKER) (test code = 5.9 GM/DL 13.0-16.8 LL 410) HEMATOCRIT (BEAKER) (test code = 19.5 % 36.0-50.0 LL 411) PROTHROMBIN [id number] 06:02:43 Test Item Value Reference Range Interpretation Comments PROTIME (BEAKER) 13.0 seconds 9.8-12.0 H Final Infor mation (test code = 759) (Auto Outp ut) INR (BEAKER) (test 1.21 See_Comment Final Inf ormation code = 370) (Auto Output) [Automated mess age] The system [employer] generated this result transmitted ref erence range: <=5.90. The reference range was not used to int erpret this result as normal/abnormal . RECOMMENDED COUMADIN/WARFARIN INR THERAPY RANGESSTANDARD DOSE: 2.0 - 3.0 Includes: PROPHYLAXIS for venous thrombosis, systemic embolization; TREATMENT for venous thrombosis and/or pulmonary embolus.HIGH RISK: Target INR is 2.5-3.5 for patients with mechanical heart valves.POCT-GLUCOSE [id number] 06:01:19 Test Item Value Reference Range Interpretation Comments POC-GLUCOSE METER 184 mg/dL 70-110 H : TESTED A T [facility] (BEAKER) (test code [address], = 1538) [facility] [address]: Window Repairer/Techni radha ID = [id number] for Cuev as, Wale ANTI-MITOCHONDRIAL AB, REFLEX TO [id number] 08:05:00 Test Item Value Reference Range Interpretation Comments SCAN RESULT (test code = 6333249) BLOOD [id number] 07:01:00 Test Item Value Reference Range Interpretation Comments CULTURE (BEAKER) (test No growth in 5 days code = 1095) BLOOD [id number] 07:01:00 Test Item Value Reference Range Interpretation Comments CULTURE (BEAKER) (test No growth in 5 days code = 1095) POCT-GLUCOSE [id number] 12:22:00 Test Item Value Reference Range Interpretation Comments POC-GLUCOSE METER 205 mg/dL 70-110 H : TESTED A T [facility] 6720 (BEAKER) (test code = KEMAL Andrews [facility], 1538) [address]: Window Repairer/Techni radha ID = [id number] for Or phewill Janette ALPHA FETOPROTEIN (AFP), TUMOR [id number] 08:57:00 Test Item Value Reference Range Interpretation Comments ALPHA-FETOPROTEIN (BEAKER) (test 3.0 ng/mL <10.0 code = 1094) POCT-GLUCOSE [id number] 08:26:00 Test Item Value Reference Range Interpretation Comments POC-GLUCOSE METER 123 mg/dL 70-110 H : TESTED A T [facility] 6720 (BEAKER) (test code = KEMAL Andrews [facility], 1538) [address]: Window Repairer/Techni radha ID = [id number] for Or phey, Janette BASIC METABOLIC [id number] 08:19:00 Test Item Value Reference Range Interpretation [...] PATIEN TS. CBC W/PLT COUNT & AUTO [id number] 06:59:00 Test Item Value Reference Range Interpretation [...] PERCENT (BEAKER) (test code = 2801) POCT-GLUCOSE [id number] 22:23:00 Test Item Value Reference Range Interpretation Comments POC-GLUCOSE METER 187 mg/dL 70-110 H : [facility] (test code = KEMAL Andrews [facility], 1538) [address]: Window Repairer/Techni radha ID = [id number] for Ketan Verdin MR, ABDOMEN, [id number] 18:17:00FINAL REPORT INDICATION:Cirrhosis and questionable (isoechoic) liver [...] MDReport Verified Date/Time: 07/02/2019 18:17:28 Reading Location: [address] Body Reading Room ANTI-NUCLEAR ANTIBODY [...] (BEAKER) (test code = 2585) HEPATITIS C [id number] 08:38:00 Test Item Value Reference Range Interpretation Comments HEPATITIS C ANTIBODY (BEAKER) Nonreactive Nonreactive (test code = 367) POCT-GLUCOSE [id number] 08:31:00 Test Item Value Reference Range Interpretation Comments POC-GLUCOSE METER 136 mg/dL 70-110 H : TESTED A T [facility] 6720 (BEAKER) (test code = KEMAL Andrews [facility], 1538) [address]: Window Repairer/Techni radha ID = [id number] for [facility] CAMP[facility] IMMUNOGLOBULIN G (IGG)2019-07-02 08:16:00 Test Item Value Reference Range Interpretation Comments IMMUNOGLOBULIN G (IGG) (BEAKER) 1200 mg/dL 540-1,822 (test code = 427) [id number] 05:52:00 Test Item Value Reference Range Interpretation [...] 5 % 20-55 L (test code = 6760) TSH/FREE T4 IF [id number] 04:38:00 Test Item Value Reference Range Interpretation Comments THYROID STIMULATING HORMONE 0.46 uIU/mL 0.35-4.94 (BEAKER) (test code = 772) BASIC METABOLIC [id number] 04:06:00 Test Item Value Reference Range Interpretation [...] S NOT APPLICABLE FOR DIALYSIS PATIEN TS. [id number] 04:04:00 Test Item Value Reference Range Interpretation Comments ALPHA-1 ANTITRYPSIN (BEAKER) 139.90 mg/dL 90.00-200.00 (test code = 502) PROTHROMBIN [id number] 04:02:00 Test Item Value Reference Range Interpretation [...] 2.5-3.5 for patients wiht mechanical heart valves.PROTHROMBIN [id number] 04:02:00 Test Item Value Reference Range Interpretation [...] mechanical heart valves.CBC W/PLT COUNT & AUTO [id number] 03:48:00 Test Item Value Reference Range Interpretation [...] (BEAKER) (test code = 2801) U/S, ABDOMINAL, [id number] 00:38:00Reason for exam:->suspected cirrhosisFINAL REPORT INDICATION: suspected [...] evidence of acute cholecystitis. Signed: Maria Elena Zepeda Verified Date/Time: 00:38:18 POCT-GLUCOSE [id number] 21:58:00 Test Item Value Reference Range Interpretation Comments POC-GLUCOSE METER 188 mg/dL 70-110 H : TESTED A T [facility] 67 ([facility]) (test code = [facility], 1538) [address]: Window Repairer/Techni radha ID = [id number] for DEBO ALLISON POCT-GLUCOSE [id number] 17:35:00 Test Item Value Reference Range Interpretation Comments POC-GLUCOSE METER 200 mg/dL 70-110 H : Notified RN/MD: ([facility]) (test code = TESTED AT [facility] 6720 1538) [facility], [address]: Window Repairer/Techni radha ID = [id number] for [facility] HEPATIC FUNCTION [id number] 14:20:00 Test Item Value Reference Range Interpretation [...] 6-55 347) CBC W/PLT COUNT & AUTO [id number] 14:01:00 Test Item Value Reference Range Interpretation [...] PERCENT (BEAKER) (test code = 2801) POCT-GLUCOSE [id number] 13:05:00 Test Item Value Reference Range Interpretation Comments POC-GLUCOSE METER 152 mg/dL 70-110 H : TESTED A T [facility] 6720 (BEAKER) (test code = [place], 1538) [address]: Window Repairer/Techni radha ID = [id number] for [employer]AR [place] BASIC METABOLIC [id number] 10:18:00 Test Item Value Reference Range Interpretation [...] APPLICABLE FOR DIALYSIS PATIEN TS. HEPATIC FUNCTION [id number] 10:15:00 Test Item Value Reference Range Interpretation [...] code = 27 U/L 6-55 347) PROTHROMBIN [id number] 07:18:00 Test Item Value Reference Range Interpretation [...] mechanical heart valves.CBC W/PLT COUNT & AUTO [id number] 07:06:00 Test Item Value Reference Range Interpretation [...] code = 2801) URINALYSIS W/ REFLEX URINE [id number] 01:38:00 Test Item Value Reference Range Interpretation [...] /HPF SOURCE(BEAKER) (test code = 2795) POCT-GLUCOSE [id number] 21:13:00 Test Item Value Reference Range Interpretation Comments POC-GLUCOSE METER 117 mg/dL 70-110 H : TESTED A T [facility] (BEAKER) (test code = KEMAL DOMINGUEZ [place], 1538) 56099: Window Repairer/Techni radha ID = [id number] for DI XO, EDGAR CBC W/PLT COUNT & AUTO [id number] 20:49:00 Test Item Value Reference Range Interpretation [...] PERCENT (BEAKER) (test code = 2801) POCT-GLUCOSE [id number] 14:13:00 Test Item Value Reference Range Interpretation Comments POC-GLUCOSE METER 171 mg/dL 70-110 H : TESTED A T [facility] (BEAKER) (test code = KEMAL DOMINGUEZ [place], 1538) 23840: Window Repairer/Techni radha ID = [id number] for Or Janette du CBC W/PLT COUNT & AUTO [id number] 12:20:00 Test Item Value Reference Range Interpretation [...] PERCENT (BEAKER) (test code = 2801) HEMOGLOBIN [id number] 08:15:00 Test Item Value Reference Range Interpretation Comments HEMOGLOBIN A1C (BEAKER) (test code = 7.0 % 4.3-6.1 H 368) POCT-GLUCOSE [id number] 07:09:00 Test Item Value Reference Range Interpretation Comments POC-GLUCOSE METER 193 mg/dL 70-110 H : TESTED A T [facility] 6720 (BEAKER) (test code = KEMAL REYES, 1538) 19093: Window Repairer/Techni radha ID = [id number] for Or Janette du CBC W/PLT COUNT & AUTO [id number] 05:52:00 Test Item Value Reference Range Interpretation [...] % 0-1 PERCENT (BEAKER) (test code = 280) BASIC METABOLIC [id number] 05:32:00 Test Item Value Reference Range Interpretation [...] APPLICABLE FOR DIALYSIS PATIEN TS. HEPATIC FUNCTION [id number] 05:26:00 Test Item Value Reference Range Interpretation [...] code = 23 U/L 6-55 347) PROTHROMBIN [id number] 05:25:00 Test Item Value Reference Range Interpretation Comments PROTIME (BEAKER) (test code = 16.1 seconds 11.9-14.2 H 759) INR (VONNIE) (test code = 370) 1.4 <=5.9 Effective 01/14/2019: PT Reference Range ChangeNew: 11.9-14.2 Previous: 11.7- 14.7RECOMMENDED COUMADIN/WARFARIN INR THERAPY RANGESSTANDARD DOSE: 2.0-3.0 Includes: PROPHYLAXIS for venous thrombosis, systemic embolization; TREATMENT for venous thrombosis and/or pulmonary embolus.HIGH RISK: Target INR is 2.5-3.5 for patients wiht mechanical heart valves.
[2023-07-24] MEDS ORDERED: ONDANSETRON 4 MG/2 ML VIAL ONE (00:41)
[2023-07-24] MEDS ORDERED: NA CHLORIDE 0.9% 1,000 ML ONE (00:42)
[2023-07-24] MEDS ORDERED: NA CHLORIDE 0.9% 250 ML ONE (00:42)
[2023-07-24] MEDS ORDERED: PANTOPRAZOLE 40 MG INJ ONE ×2 (00:42→01:04)
[2023-07-24 01:02] LABS: Absolute Lymphocytes (CBC) 1.2 K/uL (0.7-4.9); Hematocrit 29.4 % (39.6-49.0); Lymphocytes % 33.5 % (15.3-44.8); MCV 71.5 fL (80-100); Platelets 38 thou/uL (152-406); RBC Red Blood Cell Count 4.11 M/uL (4.33-5.43)
[2023-07-24] MEDS ORDERED: CEFTRIAXONE 1000 MG/VIAL ONE (01:03)
[2023-07-24] MEDS ORDERED: METOCLOPRAMIDE 10 MG/2mL INJ ONE (01:03)
[2023-07-24] MEDS ORDERED: OCTREOTIDE ACETATE 100 MCG/ML ONE (01:04)
[2023-07-24] MEDS ORDERED: NA CHLORIDE 0.9% 50 ML ONE (01:04)
[2023-07-24] MEDS ORDERED: ALBUMIN HUMAN 25% 100 ML IV ONE (01:04)
[2023-07-24 01:16] LABS: Protime INR 1.3
[2023-07-24 01:21] LABS: Albumin 3.1 g/dL (3.4-5.0); Bilirubin Total 0.6 mg/dL (0.2-1.0); Potassium 3.9 mEq/L (3.5-5.1); Protein, Total 7.2 g/dL (6.4-8.2)
[2023-07-24 02:22] LABS: Anisocytosis 1+; Blood Morphology Comment NOTED (NOT SEEN); Hypochromasia 1+; Platelet Estimate DECR; White Blood Cell Scan OK (OK)
--- NOTE | 2023-07-24 05:36 | ER ---
Nurse's Notes [facility] Name: Isma Marion Age: 47 yrs Sex: Male : 1975 Arrival Date: 07/24/2023 Time: 00:02 Bed 20 Private MD: Diagnosis: Upper GI bleeding, liver cirrhosis,, portal hypertension Presentation: 07/24 00:08 Chief complaint: Spouse and/or significant other states: He threw up a lot of blood at 1 home, he did this last year and ended up passing out and I didn't want to wait until it got to that. He had an ulcer ruptured. 00:08 Method Of Arrival: Wheelchair vc1 00:08 Coronavirus screen: Vaccine status: Patient reports being unvaccinated. Client denies vc1 travel out of the [place] in the last 14 days. At this time, the client does not indicate any symptoms associated with coronavirus-19. Ebola Screen: Patient negative for fever greater than or equal to 101.5 degrees Fahrenheit, and additional compatible Ebola Virus Disease symptoms Patient denies exposure to infectious person. Patient denies travel to an Ebola-affected area in the 21 days before illness onset. No symptoms or risks identified at this time. Initial Sepsis Screen: Does the patient meet any 2 criteria? No. Patient's initial sepsis screen is negative. Does the patient have a suspected source of infection? No. Patient's initial sepsis screen is negative. 00:08 Risk Assessment: Do you want to hurt yourself or someone else? Patient reports no vc1 desire to harm self or others. Onset of symptoms was July 24, 2023. 00:08 Acuity: MEGHANN 2 vc1 Triage Assessment: 00:24 General: Appears in no apparent distress. uncomfortable, Behavior is calm, cooperative, vc1 appropriate for age. Pain: Complains of pain in abdomen Pain does not radiate. Pain currently is 8 out of 10 on a pain scale. Quality of pain is described as sharp, Also complains of nausea, vomiting blood. EENT: No deficits noted. No signs and/or symptoms were reported regarding the EENT system. Neuro: Level of Consciousness is awake, obeys commands, lethargic, Oriented to person, place, time, situation, Appropriate for age Reports weakness. Cardiovascular: No deficits noted. Respiratory: Airway is patent Respiratory effort is even, unlabored, Respiratory pattern is regular, symmetrical. GI: vomiting blood Bowel sounds present X 4 quads. Reports lower abdominal pain, upper abdominal pain, epigastric pain, nausea, vomiting, vomiting blood and blood clots. : No deficits noted. No signs and/or symptoms were reported regarding the genitourinary system. Derm: Skin is pale. Musculoskeletal: No deficits noted. No signs and/or symptoms reported regarding the musculoskeletal system. Historical: - Allergies: 00:23 No Known Allergies; vc1 - Home Meds: 00:23 Metformin Oral [Active]; vc1 - PMHx: 00:23 Diabetes - NIDDM; Bleeding ulcer; vc1 - PSHx: 00:23 None; vc1 - Immunization history:: Client reports having NOT received the Covid vaccine. Flu vaccine is not up to date. - Social history:: Smoking status: Patient reports the use of cigarette tobacco products, unknown amount. - Family history:: not pertinent. Screenin:[facility] ED Fall Risk Assessment (Adult) History of falling in the last 3 months, vc1 including since admission No falls in past 3 months (0 pts) Confusion or Disorientation No (0 pts) Intoxicated or Sedated No (0 pts) Impaired Gait No (0 pts) Mobility Assist Device Used No (0 pt) Altered Elimination No (0 pt) Score/Fall Risk Level 0 - 2 = Low Risk Oriented to surroundings, Maintained a safe environment, Educated pt \\T\\ family on fall prevention, incl call for assistance when getting out of bed. Abuse screen: Denies threats or abuse. Nutritional screening: No deficits noted. Tuberculosis screening: No symptoms or risk factors identified. Assessment: 01:07 Reassessment: Pt noted in bed, Introductions made. Pt's s.o. states that patient nw1 started bleeding "chunks of blood like he did a year ago". Pt states that he doesn't drink alcohol like he use to. PIV's in place and pt tolerated well. VSS. Call light at bedside. Will continue to monitor. General: Appears uncomfortable, Behavior is calm, cooperative, appropriate for age. Cardiovascular: No deficits noted. Denies chest pain, diaphoresis, fatigue, lightheadedness, nausea, palpitations, shortness of breath, syncope. GI: Abdomen is distended, bruised on right upper quadrant Bowel sounds present X 4 quads. 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 01:21 Reassessment: 20g RAC, started by GREGG Quiroga. 18 g rFA started by Kyle Garza, 18g nw1 LFA started by this nurse. Pt tolerated all IV insertions well. Vital Signs: 00:08 Weight 86.18 kg; Height 5 ft. 6 in. ; vc1 00:08 BP 108 / 88; Pulse 69; Resp 18; Temp 98.7; Pulse Ox 100% ; vc1 01:07 BP 113 / 66; Pulse 81; Resp 17; Pulse Ox 97% ; nw1 01:57 BP 127 / 47; Pulse 91; Resp 16 S; Pulse Ox 97% ; nw1 02:46 BP 103 / 62; Pulse 86; Resp 17; Pulse Ox 98% ; nw1 03:26 BP 99 / 61; Pulse 77; Resp 16; Pulse Ox 99% on R/A; nw1 04:08 BP 110 / 69; Pulse 84; Resp 15; Pulse Ox 99% on R/A; nw1 00:08 Body Mass Index 30.67 (86.18 kg, 167.64 cm) vc1 Richard Coma Score: 01:07 Eye Response: spontaneous(4). Motor Response: obeys commands(6). Verbal Response: nw1 oriented(5). Total: 15. 02:22 Eye Response: spontaneous(4). Motor Response: obeys commands(6). Verbal Response: sp4 oriented(5). Total: 15. ED Course: 00:08 Patient arrived in ED. vc1 00:14 Junaid Mayes, GREGG is Primary Nurse. bp 00:18 Jamison Dey MD is Attending Physician. sp4 00:23 Triage completed. vc1 00:24 Arm band placed on right wrist. vc1 00:41 Patient has correct armband on for positive identification. Placed in gown. Bed in low vc1 position. Call light in reach. 01:06 Protime (+inr) Sent. 01:06 Ptt, Activated Sent. 01:06 Type And Screen Sent. :06 CBC with Diff Sent. 01:06 CMP Sent. 01:07 Provided Education on: POC. nw 01:07 Lipase Sent. nw1 01:07 Assist provider with bone marrow aspiration. Inserted saline lock: 18 gauge 20 gauge in nw1 right in left antecubital area, using aseptic technique. forearm, using aseptic technique. 01:24 CBC with Diff Sent. nw1 01:25 CBC Smear Scan Sent. nw1 01:41 initiated transfer with [facility] transfer center, spoke with Shavon. jr12 01:42 CT Abd/Pelvis - IV Contrast Only In Process Unspecified. EDMS 01:[address] [facility] is at capacity and unable to take patient. Trying for [facility] in [address] 02:17 initiating transfer with [facility] transfer center. jr12 02:24 [facility] facilities are at full capacity. Initiating transfer with [place] [id number] transfer center. 04:09 Patient transferred, IV remains in place. nw1 Administered Medications: 00:45 Drug: NS 0.9% IV 1000 ml IV at 1 bolus Per protocol; 1000 mL bolus Route: IV; Rate: 1 la4 bolus; Site: right antecubital; 00:45 Drug: Ondansetron IVP 4 mg IVP once; over 2 minutes Route: IVP; Site: right antecubital;la4 01:05 Follow up: Response: No adverse reaction la4 00:45 Drug: Pantoprazole IV 8 mg/hr IV at 25 ml/hr continuous; (Standard dilution is 80 mg in la4 250 mL NS) Route: IV; Rate: 25 ml/hr; Site: right forearm; 00:46 Drug: Pantoprazole IVP 80 mg IVP once Route: IVP; Site: right antecubital; la4 01:04 Drug: Albumin IVPB 25 grams 100 ml IVPB once; (Note: Albumin 25% concentration) Volume: la4 100 ml; Route: IVPB; Site: right antecubital; 01:04 Drug: metoCLOPramide IVP 10 mg IVP once; over 1 to 2 minutes Route: IVP; Site: right la4 antecubital; 01:04 Drug: Rocephin - Rocephin (cefTRIAXone) IVPB 1 grams IVPB once over 30 mins; (mix in 50 la4 mL NS) Route: IVPB; Infused Over: 30 mins; Site: left forearm; 01:04 Drug: Octreotide IV 50 mcg IV at bolus once Route: IV; Rate: bolus; Site: left forearm; la4 01:24 Drug: Albumin IVPB 25 grams 100 ml IVPB once; (Note: Albumin 25% concentration) Volume: nw1 100 ml; Route: IVPB; Site: left antecubital; 02:46 Not Given (Physician Discretion): Octreotide Infusion (50 mcg/hr) - ([id number] mcg, nw1 ns 0.9% 500 ml) IV at 50 ml/hr continuous Medication: 00:41 VIS not applicable for this client. vc1 Outcome: 02:47 ER care complete, transfer ordered by . sp4 04:09 Transferred by ground EMS to [facility], Note: Report given to nw1 Radha Murillo RN \\T\\ [id number] 04:09 Condition: stable 04:09 Instructed on the need for transfer, 04:30 Patient left the ED. nw1 Signatures: Dispatcher [employer] EDMS Junaid Mayes RN RN bp Calcote, Vanessa, RN RN vc1 Jamison Dey MD MD sp4 [place] [facility] Kyle Garza RN RN la4 Veronica Man RN RN nw1 Corrections: (The following items were deleted from the chart) 04:10 04:09 Transferred by ground EMS to [facility], nw1 nw1
--- NOTE | 2023-07-24 05:36 | EDPHYS ---
Physician Documentation [facility] Name: Isma Marion Age: 47 yrs Sex: Male : 1975 Arrival Date: 07/24/2023 Time: 00:02 Bed 20 Private MD: ED Physician Jamison Dey HPI: 07/24 00:18 This 47 yrs old Male presents to ER via Wheelchair with complaints of sp4 Vomiting, Syncope. 02:15 47-year-old male presents with acute onset bloody emesis. Patient vomited blood at 4 home. He presented here in ER and blood was vomited 1 more time in triage. Patient has history of very similar problem 1 year ago on 07/22/2022 when he was transferred to outside hospital for variceal GI bleed. 02:18 Back then patient has been accepted to [facility] to [address] [place] bed 13/ Dr. Sheets 4 accepted the patient in transfer/report to be called to [phone].. Historical: - Allergies: 00:23 No Known Allergies; vc1 - Home Meds: 00:23 Metformin Oral [Active]; vc1 - PMHx: 00:23 Diabetes - NIDDM; Bleeding ulcer; vc1 - PSHx: 00:23 None; vc1 - Immunization history:: Client reports having NOT received the Covid vaccine. Flu vaccine is not up to date. - Social history:: Smoking status: Patient reports the use of cigarette tobacco products, unknown amount. - Family history:: not pertinent. ROS: 02:19 Constitutional: Negative for fever, chills, and weight loss, Abdomen/GI: Positive sp4 bloody vomitus 02:19 All other systems are negative, Exam: 02:19 Constitutional: This is a well developed, well nourished patient who is awake, alert, sp4 pale appearing male, stigmata of chronic alcohol abuse Head/Face: Normocephalic, atraumatic. Eyes: Pupils equal round and reactive to light, extra-ocular motions intact. Lids and lashes normal. Conjunctiva and sclera are not injected. Cornea within normal limits. Periorbital areas with no swelling, redness, or edema. ENT: Nares patent. No nasal discharge, no septal abnormalities noted. Tympanic membranes are normal and external auditory canals are clear. Oropharynx with no redness, swelling, or masses, exudates, or evidence of obstruction, uvula midline. Mucous membranes moist. Neck: Trachea midline, no thyromegaly or masses palpated, and no cervical lymphadenopathy. Supple, full range of motion without nuchal rigidity, or vertebral point tenderness. Chest/axilla: Normal chest wall appearance and motion. Nontender with no deformity. No lesions are appreciated. Cardiovascular: Regular rate and rhythm with a normal S1 and S2. No gallops, murmurs, or rubs. Normal PMI, no JVD. No pulse deficits. Respiratory: Lungs have equal breath sounds bilaterally, clear to auscultation and percussion. No rales, rhonchi or wheezes noted. No increased work of breathing, no retractions or nasal flaring. Abdomen/GI: Soft, non-tender, with normal bowel sounds. No distension or tympany. No guarding or rebound. No evidence of tenderness throughout. Back: No spinal tenderness. No costovertebral tenderness. Skin: Warm, dry with normal turgor. Generalized pallor with no rashes, no lesions, and no evidence of cellulitis. MS/ Extremity: Pulses equal, no cyanosis. Neurovascular intact. Full, normal range of motion. Neuro: Awake and alert, GCS 15, oriented to person, place, time, and situation. Cranial nerves II-XII grossly intact. Motor strength 5/5 in all extremities. Sensory grossly intact. Psych: Awake, alert, with orientation to person, place and time. Behavior, mood, and affect are within normal limits 02:22 ECG was reviewed by the Attending Physician. EKG at 0052 normal sinus rhythm normal EKG sp4 sinus rhythm at 80 beats per Vital Signs: 00:08 Weight 86.18 kg; Height 5 ft. 6 in. ; vc1 00:08 BP 108 / 88; Pulse 69; Resp 18; Temp 98.7; Pulse Ox 100% ; vc1 01:07 BP 113 / 66; Pulse 81; Resp 17; Pulse Ox 97% ; nw1 01:57 BP 127 / 47; Pulse 91; Resp 16 S; Pulse Ox 97% ; nw1 02:46 BP 103 / 62; Pulse 86; Resp 17; Pulse Ox 98% ; nw1 03:26 BP 99 / 61; Pulse 77; Resp 16; Pulse Ox 99% on R/A; nw1 04:08 BP 110 / 69; Pulse 84; Resp 15; Pulse Ox 99% on R/A; nw1 00:08 Body Mass Index 30.67 (86.18 kg, 167.64 cm) vc1 Richard Coma Score: 01:07 Eye Response: spontaneous(4). Motor Response: obeys commands(6). Verbal Response: nw1 oriented(5). Total: 15. 02:22 Eye Response: spontaneous(4). Motor Response: obeys commands(6). Verbal Response: sp4 oriented(5). Total: 15. MDM: 00:12 Patient medically screened. kb 02:13 ED course: CT - TECHNIQUE: Contiguous axial images obtained through the abdomen and sp4 pelvis following the uneventful administration of IV contrast. Coronal and sagittal reformatted images were provided. This exam was performed according to our departmental dose-optimization program, which includes automated exposure control, adjustment of the mA and/or kV according to patient size and/or use of iterative reconstruction technique. COMPARISON: None available for comparison. FINDINGS: Lung bases: Clear Liver: Cirrhotic liver morphology with hypertrophy of the left lobe. Enlarged portosystemic collaterals, consistent with portal hypertension. Gallbladder and biliary system: Multiple gallstones. Gallstones in the neck of the gallbladder. Pancreas: Unremarkable Spleen: Prominent splenomegaly, the spleen measures approximately 18.9 cm longitudinally. Adrenals: Unremarkable Kidneys: Normal renal cortical enhancement. No calculi. No hydronephrosis. Incidental left renal cyst for which no follow-up imaging is recommended. GI: Small hiatal hernia with mild thickening of the distal esophagus which may reflect sequela from reflux esophagitis. Probable small paraesophageal varices. No obstruction. No appreciable mucosal thickening. Appendix: No findings to suggest acute appendicitis. Urinary bladder: Thickening of the white of the urinary bladder which may be secondary to incomplete distention, sequela from chronic outlet obstruction or cystitis. Reproductive: Unremarkable as visualized Lymph nodes: No pathologically enlarged lymph nodes. Peritoneum: No focal fluid collection. No free air. Vessels: No abdominal aortic aneurysm. Filling defect within the superior mesenteric vein, consistent with nonocclusive SMV thrombus Patent portal vein. Abdominal wall: Unremarkable Bones: Unremarkable IMPRESSION: 1. Filling defect within the superior mesenteric vein, consistent with nonocclusive SMV thrombus. Patent portal vein. 2. Cirrhosis and portal hypertension. Prominent splenomegaly. 3. Small hiatal hernia with mild thickening of the distal esophagus which may reflect sequela from reflux esophagitis. 4. Thickening of the white of the urinary bladder which may be secondary to incomplete distention, sequela from chronic outlet obstruction or cystitis. Electronically signed by: Isma Quan MD 07/24/2023 02:07 AM C. 02:44 Differential diagnosis: Nonspecific abd pain, gastritis, cholecystitis, pancreatitis, sp4 appendicitis, diverticulitis, viral gastroenteritis, gastroenteritis. Data reviewed: vital signs, nurses notes, old medical records, lab test result(s), EKG, radiologic studies, CT scan. Consideration of Admission/Observation Patient was admitted/placed on observation. Escalation of care including admission/observation considered. ED course: Patient was discussed with cut filer at [facility] and was accepted to ICU. This time there is no GI coverage here at [facility]. 04:12 ED course: Patient is being picked up by EMS for transfer at this time at 4:13 AM. sp4 07/24 00:13 Order name: CBC with Diff kb 07/24 00:13 Order name: CMP; Complete Time: 01:31 kb 07/24 00:13 Order name: Lipase; Complete Time: :31 kb 07/24 00:13 Order name: Type And Screen kb 07/24 00:16 Order name: Protime (+inr); Complete Time: 01:31 kb 07/24 00:16 Order name: Ptt, Activated; Complete Time: 01:31 kb 07/24 01:13 Order name: CBC Smear Scan EDMS 07/24 00:13 Order name: CT Abd/Pelvis - IV Contrast Only kb 07/24 00:16 Order name: EKG; Complete Time: 00:17 kb 07/24 00:13 Order name: IV Saline Lock; Complete Time: 00:30 kb 07/24 00:13 Order name: Labs collected and sent; Complete Time: 00:30 kb 07/24 00:16 Order name: EKG - Nurse/Tech; Complete Time: 01:05 kb 07/24 02:41 Order name: Saline Lock; Complete Time: 02:46 sp4 EC:22 Rate is 80 beats/min. Rhythm is regular, Normal Sinus Rhythm. QRS Schroeder is Normal. NM sp4 interval is normal. QRS interval is normal. QT interval is normal. No Q waves. T waves are Normal. No ST changes noted. Clinical impression: Normal ECG. Interpreted by me. Reviewed by me. Administered Medications: 00:45 Drug: NS 0.9% IV 1000 ml IV at 1 bolus Per protocol; 1000 mL bolus Route: IV; Rate: 1 la4 bolus; Site: right antecubital; 00:45 Drug: Ondansetron IVP 4 mg IVP once; over 2 minutes Route: IVP; Site: right antecubital;la4 01:05 Follow up: Response: No adverse reaction la4 00:45 Drug: Pantoprazole IV 8 mg/hr IV at 25 ml/hr continuous; (Standard dilution is 80 mg in la4 250 mL NS) Route: IV; Rate: 25 ml/hr; Site: right forearm; 00:46 Drug: Pantoprazole IVP 80 mg IVP once Route: IVP; Site: right antecubital; la4 01:04 Drug: Albumin IVPB 25 grams 100 ml IVPB once; (Note: Albumin 25% concentration) Volume: la4 100 ml; Route: IVPB; Site: right antecubital; 01:04 Drug: metoCLOPramide IVP 10 mg IVP once; over 1 to 2 minutes Route: IVP; Site: right la4 antecubital; 01:04 Drug: Rocephin - Rocephin (cefTRIAXone) IVPB 1 grams IVPB once over 30 mins; (mix in 50 la4 mL NS) Route: IVPB; Infused Over: 30 mins; Site: left forearm; 01:04 Drug: Octreotide IV 50 mcg IV at bolus once Route: IV; Rate: bolus; Site: left forearm; la4 01:24 Drug: Albumin IVPB 25 grams 100 ml IVPB once; (Note: Albumin 25% concentration) Volume: nw1 100 ml; Route: IVPB; Site: left antecubital; 02:46 Not Given (Physician Discretion): Octreotide Infusion (50 mcg/hr) - ([id number] mcg, nw1 ns 0.9% 500 ml) IV at 50 ml/hr continuous Disposition Summary: 07/24/23 02:47 Transfer Ordered Notes: Transfer Location: Other Acute Care Facility sp4 Reason: Higher level of care sp4 Condition: Stable sp4 Problem: new sp4 Symptoms: are unchanged sp4 Accepting 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 Total time: 60 minutes Signatures: Dispatcher [employer] EDMS Maite Hawkins, Maxine Sherwood RN RN vc1 Jamison Dey MD MD sp4 Kyle Garza RN RN la4 Veronica Man RN RN nw1 Corrections: (The following items were deleted from the chart) 02:19 02:15 47-year-old male presents with acute onset bloody emesis. Patient vomited blood sp4 at home. He presented here in ER and blood was vomited 1 more time in triage. Patient has history of very similar problem 1 year ago when he was transferred to outside hospital for variceal GI bleed. 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
[2023-07-24 13:42] VITALS: TEMP 98.7
[2023-07-24 13:47] VITALS: O2SAT 99
[2023-07-24 13:48] VITALS: BP 110/69
--- NOTE | 2023-07-24 16:37 | RAD REPORT ---
EXAM DESCRIPTION: CT - Abdomen Pelvis W Contrast - 07/24/2023 6:40 am CLINICAL HISTORY: ABD PAIN TECHNIQUE: Contiguous axial images obtained through the abdomen and pelvis following the uneventful administration of IV contrast. Coronal and sagittal reformatted images were provided. This exam was performed according to our departmental dose-optimization program, which includes autom ated exposure control, adjustment of the mA and/or kV according to patient size and/or use of iterati ve reconstruction technique. COMPARISON: None available for comparison. FINDINGS: Lung bases: Clear Liver: Cirrhotic liver morphology with hypertrophy of the left lobe. Enlarged portosystemic collaterals, consistent with portal hypertension. Gallbladder and biliary system: Multiple gallstones. Gallstones in the neck of the gallbladder. Pancreas: Unremarkable Spleen: Prominent splenomegaly, the spleen measures approximately 18.9 cm longitudinally. Adrenals: Unremarkable Kidneys: Normal renal cortical enhancement. No calculi. No hydronephrosis. Incidental left renal cyst for which no follow-up imaging is recommended. GI: Small hiatal hernia with mild thickening of the distal esophagus which may reflect sequela from r eflux esophagitis. Probable small paraesophageal varices. No obstruction. No appreciable mucosal thic kening. Appendix: No findings to suggest acute appendicitis. Urinary bladder: Thickening of the white of the urinary bladder which may be secondary to incomplete distention, sequela from chronic outlet obstruction or cystitis. Reproductive: Unremarkable as visualized Lymph nodes: No pathologically enlarged lymph nodes. Peritoneum: No focal fluid collection. No free air. Vessels: No abdominal aortic aneurysm. Filling defect within the superior mesenteric vein, consistent with nonocclusive SMV thrombus Patent portal vein. Abdominal wall: Unremarkable Bones: Unremarkable IMPRESSION: 1. Filling defect within the superior mesenteric vein, consistent with nonocclusive SM V thrombus. Patent portal vein. 2. Cirrhosis and portal hypertension. Prominent splenomegaly. 3. Small hiatal hernia with mild thickening of the distal esophagus which may reflect sequela from reflux esophagitis. 4. Thickening of the white of the urinary bladder which may be secondary to incomplete distention, sequela from chronic outlet obstruction or cystitis. Electronically signed by: Isma Quan MD 07/24/2023 02:07 AM SALVAGE CUTTER Due to temporary technical issues with the PACS/Fluency reporting system, reports are being signed by the in house radiologists without review as a courtesy to insure prompt reporting. The interpreting radiologist is fully responsible for the content of the report.
== END 2023-07-24 04:30 ==
LOC: ER 00:02
DX: K92.2 Gastrointestinal hemorrhage, unspecified (principal); K74.60 Unspecified cirrhosis of liver; K76.6 Portal hypertension
CPT/HCPCS: 36415; 74177; 80053; 82565; 83690; 85025; 85610; 85730; 86850; 86900; 86901; 93005; 99285; C9113; J0696; J2354; J2405; J2765; J7030; J7050; P9047; Q9967